=== PATIENT | male | born 1940 | race Caucasian/White ===

== ENCOUNTER 2022-02-14 17:47 | Outpatient (REF) | payer OTHER, SELFPAY ==
[2022-02-14 20:55] LABS: SARS PCR* Negative SARS-CoV-2 (Negative)
== END 2022-02-14 17:48 | disposition home or self-care (01) ==
LOC: LAB 17:47
PROVIDERS: PCP Family Medicine; Visit Provider Surgery
DX: Z20.822 Contact with and (suspected) exposure to COVID-19 (principal)
CPT/HCPCS: 87635

== ENCOUNTER 2022-02-16 09:32 | Day surgery (SDC) | payer OTHER, SELFPAY ==
[2022-02-16] VITALS (8 sets, daily range): BP systolic 119–132; BP diastolic 56–69; PULSE 66–69; RESP 16–20; TEMP 36.3; O2SAT 95–98; BMI 32.1
--- NOTE | 2022-02-16 10:08 | SUR.PREOP ---
Pt has 2 rings and watch in patient room. 2 hearing aids with patient.
[2022-02-16] MEDS: BUPIVACAINE 0.5% 30 ML INJECTION (10:48)
--- NOTE | 2022-02-16 10:57 | SUR.OPER ---
PATIENT QUESTIONS ANSWERED SATISFACTORILY PREOPERATIVELY.?? PATIENT BROUGHT TO OR #3 PER CART.?? Patient positioned supine on OR #3 bed. The perioperative team placed arms bilaterally on the armboards.? Final approval of positioning by surgeon.?
--- NOTE | 2022-02-16 12:11 | PM.GSPRC ---
Operative Note Date of procedure: 02/16/22 Type of Procedure: Right temporal artery biopsy Procedure Description: After discussing the risks and benefits of the procedure, the patient signed informed consent.? The operative site was marked and the patient was brought to the operating room and placed on the operating table in supine position.? Care was taken to pad the patient's pressure points.?? The operative site was then prepped and draped in the usual sterile fashion.? A time-out was then performed. The temporal artery was not palpable, however Doppler was used to identify its course just behind the hairline. 1% lidocaine was injected into the skin and subcutaneous tissue overlying the artery. A knife was then used to take dissection down into the subcutaneous fat. Hemostasis was achieved with cautery. The artery was then identified. This was confirmed with Doppler. It was dissected out along its course. Once a several cm length segment was identified, this was clamped proximally and distally and divided. The artery ends were then ligated with suture. The specimen was sent to pathology. Hemostasis appeared excellent. The wound was then closed in layers with 3 0 Vicryl dermal and 4 0 Monocryl running subcuticular suture. ? Sterile dressings were then applied. ? The patient was then woken and transported to the recovery area in stable condition. ? The patient tolerated the procedure well. Findings: Right temporal artery Anesthesia: local Surgeon: Pam Arora MD Estimated blood loss (mL): 1 Condition: stable Disposition: same day
== END 2022-02-16 11:29 | disposition home or self-care (01) ==
PROVIDERS: PCP Family Medicine; Visit Provider Surgery
PROC: (CPT 37609; principal; 2022-02-16 11:00)
DX: M31.6 Other giant cell arteritis (principal); R51.9 Headache, unspecified; H57.11 Ocular pain, right eye
CPT/HCPCS: 37609; 88305; J3490

== ENCOUNTER 2022-03-19 12:20 | Emergency (ER) | payer OTHER, SELFPAY ==
[2022-03-19 12:49] VITALS: BP 144/71; PULSE 63; RESP 18; TEMP 36.3; O2SAT 98; BMI 32.2
--- NOTE | 2022-03-19 13:08 | ED_ITS ---
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 Patient states that about I week ago he pulled the inner part nail on his big toe off, since then he has had some increased redness and pain while ambulating. There was also some purulent discharge that occurred yesterday and today. He has also noticed some increased swelling in lower extremities bilaterally, denies any history of heart failure, he is currently on 60 mg of prednisone daily which was changed to 50 mg daily over the last month for his temporal arteritis. He has had some hand cramps as well as lower extremity cramps, which come and go, he does have some lower extremity neuropathy and has trouble with balance at times. Patient denies any difficulty with breathing, orthopnea, denies any chest pain. No history of any MRSA. Patient has not had any fevers, chills myalgias arthralgias. She has never had lower extremity edema in the past. No history of any DVTs or PEs. No long travel. No increased weight gain. Related Data Home Medications Medication Instructions Recorded Confirmed aspirin 81 mg tablet,delayed 81 mg PO DAILY 02/15/22 02/15/22 release atenolol 50 mg tablet 50 mg PO DAILY 02/15/22 02/15/22 clotrimazole 10 mg lisa 10 mg mucous membrane 5XD 02/15/22 02/15/22 glipizide 10 mg tablet, extended 10 mg PO DAILY 02/15/22 02/15/22 release 24 hr hydrochlorothiazide 50 mg tablet 50 mg PO DAILY 02/15/22 02/15/22 insulin glargine 100 unit/mL (3 54 unit subcut HS 02/15/22 02/15/22 mL) subcutaneous pen (Lantus Solostar U-100 Insulin) liraglutide 0.6 mg/0.1 mL (18 mg/3 1.2 mg subcut DAILY 02/15/22 02/15/22 mL) subcutaneous pen injector (Victoza 2-Yunior) losartan 25 mg tablet 25 mg PO DAILY 02/15/22 02/15/22 omeprazole 20 mg capsule,delayed 20 mg PO DAILY 02/15/22 02/15/22 release prednisone 20 mg tablet 60 mg PO DAILY 02/15/22 02/15/22 sildenafil 100 mg tablet 100 mg PO DAILY PRN 02/15/22 02/15/22 simvastatin 10 mg tablet 10 mg PO HS 02/15/22 02/15/22 Previous Rx's Medication Instructions Recorded amoxicillin 875 mg-potassium 1 tab PO BID 7 days #14 tabs 03/19/22 clavulanate 125 mg tablet Allergies Allergy/AdvReac Type Severity Reaction Status Date / Time cyclobenzaprine Allergy Unknown Verified 02/15/22 09:37 lisinopril Allergy Unknown Verified 02/15/22 09:37 Review of Systems Status of ROS: Reports: 10 or more systems reviewed and unremarkable except as noted in History and below PFSH [facility] Medical History Colon polyps Diabetes mellitus Endothelial corneal dystrophy Essential hypertension History of flexible sigmoidoscopy Kidney cyst, acquired Thyroid nodule Surgical History H/O cataract removal with insertion of prosthetic lens Hx of colonoscopy Social History Smoking Status: Former smoker How many standard drinks containing alcohol do you have on a typical day: 1 or 2 AUDIT-C Alcohol total score: 0 Non-prescribed substance use: denies use service: No Exam Narrative: Exam Narrative: General: No obvious distress sitting comfortably HEENT: Nontender the temporal region. No swelling. Neck: Supple, no JVD Lungs: Clear to auscultation bilaterally Abdomen: Obese, soft Muscle skeletal: +2 pitting edema from his knees to his feet bilaterally, CMS intact. right big toe: Increased redness and swelling to the medial aspect of the nail plate, there is some purulent drainage. Neuro: Alert awake and oriented x3 Const: Vital Signs, click to edit/add: Vital Signs - 24 hr 03/19/22 12:49 03/19/22 14:49 Temperature 97.4 F L 97.4 F L Pulse Rate [Right Pulse Oximeter] 63 63 Respiratory Rate 18 18 Blood Pressure [Ri ght Upper Arm] 144/71 H 144/71 H Pulse Oximetry 98 98 Oxygen Delivery Me thod Room Air Room Air Course Course Hospital Course: 1:30 PM: AIDET performed. vitals are stable. Workup will include ultrasound lower extremities bilaterally, most likely pedal edema from his chronic prednisone, also obtain CBC and BMP and removed portion of the nail plate, on his big toe, likely treat with antibiotics. Please see procedure note. Differential diagnosis include life-threatening of DVT. Other difficulty considerations include fractures, radiculopathy, heart failure, phlebitis arthritis tendinitis sprain cellulitis as well as abscess. Reevaluation(s) Reevaluation #1: Patient was updated on his imaging and lab results, ultrasound showed no evidence of any DVT, metabolic panel showed mildly elevated potassium of 5.3, was elevated white blood cell count 12.29, neutrophil percentage of 10.5, consistent with his developing cellulitis with ingrown toenail. Blood sugar elevated at 202, BUN elevated at 41. This is unchanged from previous. Patient is to continue his usual medications, will add Augmentin 875 mg/125 mg twice daily over the next 7 days. Eliud wrap applied figure-eight pattern bilaterally. He will follow up with his primary care provider for recheck with swelling and wound care, also to recheck labs. Patient and had time to ask questions. Time: 15:06 Vital Signs Vital signs: Initial Vital Signs Temperature 97.4 F L 03/19/22 12:49 Temperature Source Temporal Artery Scan 03/19/22 12:49 Pulse Rate 63 03/19/22 12:49 Respiratory Rate 18 03/19/22 12:49 Blood Pressure 144/71 H 03/19/22 12:49 Blood Pressure Mean 95 03/19/22 12:49 Blood Pressure Position Sitting 03/19/22 12:49 Pulse Oximetry 98 03/19/22 12:49 Oxygen Delivery Method 03/19/22 12:49 Vital Signs Temperature 97.4 F L 03/19/22 12:49 Pulse Rate 63 03/19/22 12:49 Respiratory Rate 18 03/19/22 12:49 Blood Pressure 144/71 H 03/19/22 12:49 Pulse Oximetry 98 03/19/22 12:49 Oxygen Delivery Method 03/19/22 12:49 Temperature 97.4 F L 03/19/22 14:49 Pulse Rate 63 03/19/22 14:49 Respiratory Rate 18 03/19/22 14:49 Blood Pressure 144/71 H 03/19/22 14:49 Pulse Oximetry 98 03/19/22 14:49 Oxygen Delivery Method 03/19/22 14:49 Medical Decision Making Lab Data Labs: Lab Results 03/19/22 03/19/22 Range/Units 13:43 13:43 WBC 12.29 H (4.50-11.00) K/uL RBC 4.20 L (4.30-5.90) m/uL Hgb 13.2 L (13.5-17.5) gm/dL Hct 40.1 (37.0-53.0) % MCV 96 (80-100) fL MCH 31 (26-34) pg MCHC 33 (32-36) gm/dL RDW Coeff of Vicki 14.0 (11.5-15.5) % Plt Count 129 L (140-440) K/uL Neut % (Auto) 85.5 H (42.0-72.0) % Lymph % (Auto) 10.3 L (20-44) % Mccormick % (Auto) 3.8 (0.0-11.0) % Eos % (Auto) 0.2 (0.0-7.0) % Baso % (Auto) 0.0 (0.0-3.0) % Neut # (Auto) 10.50 H (1.7-7.0) K/uL Lymph # (Auto) 1.30 (0.90-2.90) K/uL Mccormick # (Auto) 0.50 (0.00-0.90) K/UL Eos # (Auto) 0.00 (0.00-0.50) K/uL Baso # (Auto) 0.00 (0.00-0.30) K/uL Abs Immat Gran (auto) 0.03 (0.00-0.30) K/uL Sodium 135 (135-149) mmol/L Potassium 5.3 H (3.6-5.1) mmol/L Chloride 96 (96-114) mmol/L Carbon Dioxide 33 H (20-32) mmol/L BUN 41 H (7-30) mg/dL Creatinine 1.5 (0.5-1.5) mg/dL Estimated Creat Clear 37.97 Estimated GFR 46 ml/min Glucose 202 H (60-115) mg/dL Calcium 9.2 (8.4-10.6) mg/dL Discharge Plan Discharge Clinical Impression: Bilateral edema of lower extremity, Ingrowing nail, right great toe Patient Disposition: Home, Self-Care Condition: Improved Instructions: Ingrown Nail (ED), Leg Edema (ED), Edema (ED) Additional Instructions: To take Augmentin 875-125 mg twice daily for the next 7 days. Elevated the legs during the day, eliud wraps during the day for swelling. To follow up with primary care provider in the next 5-7 days. Activity Level: No Restrictions Prescriptions: New amoxicillin-pot clavulanate 875-125 mg tablet 1 tab PO BID 7 Days Qty: 14 0RF No Action atenolol 50 mg tablet 50 mg PO DAILY aspirin 81 mg tablet,delayed release (DR/EC) 81 mg PO DAILY clotrimazole 10 mg lisa 10 mg mucous membrane 5XD hydrochlorothiazide 50 mg tablet 50 mg PO DAILY glipizide 10 mg tablet extended release 24hr 10 mg PO DAILY simvastatin 10 mg tablet 10 mg PO HS sildenafil 100 mg tablet 100 mg PO DAILY PRN losartan 25 mg tablet 25 mg PO DAILY omeprazole 20 mg capsule,delayed release(DR/EC) 20 mg PO DAILY insulin glargine [Lantus Solostar U-100 Insulin] 100 unit/mL (3 mL) insulin pen 54 unit SUBCUT HS Victoza 2-Yunior 0.6 mg/0.1 mL (18 mg/3 mL) pen injector 1.2 mg SUBCUT DAILY prednisone 20 mg tablet 60 mg PO DAILY Follow Up/Referrals: Ryan Barreto MD [Primary Care Provider] - Stand Alone [facility] Inst[facility] Procedures Nail Procedure Location (toes): right Procedure performed: nail avulsion Sterile prep: other Procedure successful: Yes Patient tolerated procedure: well Nerve Block Nerve Block 1: Pre procedure diagnosis: Ingrown toe nail Post procedure diagnosis: Ingrown toe nail Name of person performing procedure: Arnold Baumann Local Anesthetic: bupivacaine 0.25% Amount of anesthesia used (mL): 5 Side: right Site: digital Procedure Successful: Yes Patient Tolerated Procedure: well Complications: none Conclusion: patient tolerated procedure
--- NOTE | 2022-03-19 13:20 | CRLHL7_ITS ---
For Patients: As a result of the Century Cures Act, medical imaging exams and procedure reports are released immediately into your electronic medical record. You may view this report before your referring provider. If you have questions, please contact your health care provider. INDICATION: New swelling. TECHNIQUE: Ultrasound venous duplex bilateral lower extremity. Compression venous exam was performed using sanchez-scale, color Doppler, and spectral Doppler analysis. COMPARISON: None. FINDINGS: Deep veins: Sonographic imaging demonstrates the bilateral common femoral, deep femoral, superficial femoral, popliteal, and posterior tibial veins to be fully compressible with normal color Doppler blood flow. Superficial veins: Greater saphenous vein is fully compressible. No popliteal cyst. IMPRESSION: Normal bilateral lower extremity venous ultrasound, no sign of deep venous thrombosis. Dictated by Christopher Rodriguez MD @ 03/19/2022 2:55:32 PM (Electronically Signed)
--- OUTSIDE RECORDS SUMMARY | 2022-03-19 13:30 | XMS_ITS | Encounter Summary ---
:1940 Author Organization [facility] Address [address] [place] [address] Care Team Providers Name Role Phone Elsewhere, Pcp Primary Care Provider Unavailable Reason for Referral Outpatient (Routine) - Closed Specialty Diagnoses / Procedures Referred By Contact Refer red To Contact Ophthalmology Artur Barnhart M. D. 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 D. [address] [phone] Referral ID Status Reason Start Date Expiration Date Visits Requ ested Visits Authorized [id number] Closed 05/24/2021 05/24/2022 1 1 Encounter Details Date Type Department Care Team Description 06/13/2021 Office Visit Department of Artur Barnhart Ophthalmology allen Dinh M.D. Cornea (Primary Dx) [place], [place] [address] [facility] [address] [place] [phone] Social History Tobacco Use Types Packs/Day Years Used Date Smoking Tobacco: Unknown Smokeless Tobacco: Never Sex Assigned at Date Recorded Not on file documented as of this encounter Progress Notes Artur Barnhart M.D. - 06/13/2021 10:00 AM CST #1 s/p DMEK, right eye. Status post rebubble Doing well Plan: Prednisolone acetate 1%, 1 drop 3x/day. Wear shield at night and glasses during the day. Recheck 4-6 weeks #2 Fuchs endothelial dystrophy, both eyes s/p DMEK, left eye; doing well Prednisolone acetate 1%, taper to 1 drop 1x/day. #3 Pseudophakia, both eyes IOLs stable in the bag. ?? #4 Diabetes, no retinopathy Observe ?? #5 Mild macular pigment changes, left>right Doubt this is enough to explain blurred vision. 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 Observe. 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
--- OUTSIDE RECORDS SUMMARY | 2022-03-19 13:30 | XMS_ITS | Encounter Summary ---
:1940 Author Organization [facility] Address [address] [place] [address] Care Team Providers Name Role Phone Elsewhere, Pcp Primary Care Provider Unavailable Reason for Referral Outpatient (Routine) - Closed Specialty Diagnoses / Procedures Referred By Contact Refer red To Contact Ophthalmology Artur Barnhart M. D. [address] [phone] Referral ID Status Reason Start Date Expiration Date Visits Requ ested Visits Authorized [id number] Closed 07/26/2021 07/26/2022 1 1 NSTITCH SEAT JOINER Reason for Visit Reason Comments Post-op Follow-up Outpatient (Routine) - Closed Specialty Diagnoses / Procedures Referred By Contact Refer red To Contact Ophthalmology Artur Barnhart M. D. [address] [phone] Referral ID Status Reason Start Date Expiration Date Visits Requ ested Visits Authorized [id number] Closed 06/13/2021 06/13/2022 1 1 Encounter Details Date Type Department Care Team Description 07/26/2021 Office Visit Department of Artur Barnhart Afterrhonda odom Ophthalmology allen Dinh M.D. Cornea (Primary Dx) [address] [phone] Social History Tobacco Use Types Packs/Day Years Used Date Smoking Tobacco: Unknown Smokeless Tobacco: Never Sex Assigned at Date Recorded Not on file documented as of this encounter Progress Notes Artur Barnhart M.D. - 07/26/2021 9:15 AM CST #1 s/p DMEK, right eye. Doing well Plan: Prednisolone acetate 1%, 1 drop 2x/day for 1 month, then once a day for 1 month, then change to fluorometholone daily. Spectacle prescription given Recheck in 3-4 months. #2 Fuchs endothelial dystrophy, both eyes s/p DMEK, left eye; doing well Discontinue prednisolone acetate Start fluorometholone 0.1% 1x/day #3 Pseudophakia, both eyes IOLs stable in the bag. ?? #4 Diabetes, no retinopathy Observe ?? #5 Mild macular pigment changes, left>right Doubt this is enough to explain blurred vision. 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 Observe. NSTITCH SEAT JOINER documented in this encounter Plan of Treatment Scheduled Referrals Name Type Priority Associated Order Schedule Diagnoses Ophthalmology office Outpatient Referral Routine Expected: visit (clinic) 11/07/2021 (Approximate), Expires: 10/24/2022 documented as of this encounter Visit Diagnoses Diagnosis Aftercare Transplant Cornea - Primary documented in this encounter Care Teams Furniture Reproducer Relationship Specialty Start Date End Date Elsewhere, Pcp PCP - General Family Medicine 03/01/21 documented as of this encounter
--- OUTSIDE RECORDS SUMMARY | 2022-03-19 13:30 | XMS_ITS | Encounter Summary ---
:1940 Author Organization [facility] Address [address] [place] [address] Care Team Providers Name Role Phone Elsewhere, Pcp Primary Care Provider Unavailable Encounter Details Date Type Department Care Team Description 06/01/2021 Orders Only [facility] PCP [facility] Sa antonio Real M.D. [address] [place], [place] [phone] (Wo rk) Social History Tobacco Use Types Packs/Day Years Used Date Smoking Tobacco: Unknown Smokeless Tobacco: Never Sex Assigned at Date Recorded Not on file documented as of this encounter Plan of Treatment Not on filedocumented as of this encounter Visit Diagnoses Not on filedocumented in this encounter Care Teams Math Teacher Relationship Specialty Start Date End Date Elsewhere, Pcp PCP - General Family Medicine 03/01/21 documented as of this encounter
--- OUTSIDE RECORDS SUMMARY | 2022-03-19 13:30 | XMS_ITS | Encounter Summary ---
:1940 Author Organization [facility] Address [address] [place] [address] Care Team Providers Name Role Phone Elsewhere, Pcp Primary Care Provider Unavailable Reason for Referral Outpatient (Routine) - Closed Specialty Diagnoses / Procedures Referred By Contact Refer red To Contact Ophthalmology Artur Barnhart M. D. [address] [address] Referral ID Status Reason Start Date Expiration Date Visits Requ ested Visits Authorized [id number] Closed 05/22/2021 05/22/2022 1 1 Reason for Visit Reason Comments Post-op Follow-up Outpatient (Routine) - Closed Specialty Diagnoses / Procedures Referred By Contact Refer red To Contact Ophthalmology Artur Barnhart M. D. [address] [phone] Referral ID Status Reason Start Date Expiration Date Visits Requ ested Visits Authorized [id number] Closed 05/15/2021 05/15/2022 1 1 Encounter Details Date Type Department Care Team Description 05/22/2021 Office Visit Department of Artur Barnhart Aftercare Tra nsplant Cornea (Primary Dx); Ophthalmology allen Dinh M.D. Edema Corneal Secondary Right [address] [place] [phone] Social History Tobacco Use Types Packs/Day Years Used Date Smoking Tobacco: Unknown Smokeless Tobacco: Never Sex Assigned at Date Recorded Not on file documented as of this encounter Progress Notes Artur Barnhart M.D. - 05/22/2021 11:00 AM CDT #1 s/p DMEK, right eye. No worse than last week but still has significant inferior separation. Discussed the findings and recommend re-bubble. Patient understands. Topical antibiotic 1 drop 4x/day for 1 week. Prednisolone acetate 1%, 1 drop 4x/day. Wear shield at night and glasses during the day. Plan: Re-bubble, right eye Discussed risks, goals, alternatives, advance directives, and the necessity of other members of the healthcare team participating in the procedure with the patient (or legal business office representative and others present during the discussion). The patient understands. All questions answered and consent given. #2 Fuchs endothelial dystrophy, both eyes s/p DMEK, left eye; doing well Prednisolone acetate 1%, taper to 1 drop 2x/day. #3 Pseudophakia, both eyes IOLs stable in the bag. ?? #4 Diabetes, no retinopathy Observe ?? #5 Mild macular pigment changes, left>right Doubt this is enough to explain blurred vision. #6 Choroidal nevus left eye With possible org pigment, no subretinal fluid or elevation on exam. Observe. documented in this encounter Plan of Treatment Scheduled Referrals Name Type Priority Associated Order Schedule Diagnoses Ophthalmology Post Op Outpatient Referral Routine Expected: (clinic) 05/22/2021, Expires: 05/22/2024 documented as of this encounter Results SARS Coronavirus 2, Molecular Detection, PCR, Varies Asymptomatic (05/22/2021 11:18 AM CDT) [facility] Method Time Signature COVID-19, Swab, 05/22/2021 DTL PCR, Source Nasopharynx 6:15 PM CDT COVID-19, Undetected Undetected 05/22/2021 DTL PCR, Result 6:15 PM CDT Comment: SARS-CoV-2 RNA absent. This result does not rule out COVID-19 in the patient, as the sensitivity of the test depends o n the timing of the specimen collection and quality of the specimen. Result should be correlated with patient's history and clinical presentat ion. ----ADDITIONAL INFORMATION---- This RT-PCR test using the SurveySnap SARS-Co V-2 Assay ( [employer].) performed on the SurveySnap Two Module System has received Emergency Use Authorization (EUA) by the U.S. Food and Drug Administration, and is modified from the infant and toddler teacher's instructions with a bridging study. Performance characteristics were verifie d by [facility] in a manner consistent with CLIA requirements. Visit the CDC website: https://www.cdc.g ov/coronavirus/ for the most recent guidelines on [place] virus testing. Fact Sheet for Healthcare Providers: https://www.fda.gov/media/894546/downloa d Fact Sheet for Patients: https://www.fda.gov/media/756229/downloa d Specimen Anatomical Collection Method Collection Time Receive d Time (Source) Location / / Volume Laterality Varies 05/22/2021 11:18 05/22/2021 (Nasopharynx) AM CDT 12:45 PM CDT Artur Barnhart M.D. LAB MICROBIOLOGY - GENERAL O SERGIOERABOB Performing Organization Address City/State/ZIP Code Phon e Number [facility] - [address] [place], [place] [address] [facility] [place] [place] [address] [facility] [address] [facility] documented in this encounter Visit Diagnoses Diagnosis Aftercare Transplant Cornea - Primary Edema Corneal Secondary Right documented in this encounter Additional Health Concerns Infection Onset Date Last Indicated Resolved Time COVID19 Pending 05/22/2021 05/22/2021 05/22/2021 6:16 PM CDT documented as of this encounter Care Teams Accounts Payable Processor Relationship Specialty Start Date End Date Elsewhere, Pcp PCP - General Family Medicine 03/01/21 documented as of this encounter
--- OUTSIDE RECORDS SUMMARY | 2022-03-19 13:30 | XMS_ITS | Encounter Summary ---
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 IN [facility] [place] [address] [address] [facility] [address] [place] [phone] Social History Tobacco Use Types Packs/Day Years Used Date Smoking Tobacco: Unknown Smokeless Tobacco: Never Sex Assigned at Date Recorded Not on file documented as of this encounter Last Filed Vital Signs Vital Sign Reading Time Taken Comments Blood Pressure 140/73 05/23/2021 1:55 PM CDT Pulse 70 05/23/2021 1:55 PM CDT Temperature 37 ??C (98.6 ??F) 05/23/2021 12:14 PM CDT Respiratory Rate 19 05/23/2021 1:55 PM CDT Oxygen Saturation 97% 05/23/2021 1:55 PM CDT Inhaled Oxygen Concentration - - Weight - - Height - - Body Mass Index - - documented in this encounter Discharge Instructions Discharge InstructionsSabi Coppola R.N. - 05/23/2021 2:05 PM CDT Images from the original note were not included. Care after Corneal Transplant (DMEK): Instructions for the first day and night of surgery ONLY After IV sedation After you have been sedated, it is common to have lapses of memory, slowed reaction time and impaired judgment. For the rest of the day after being sedated: ?? Rest. ?? Do not drive or operate motorized vehicles or equipment. ?? Do not return to work or school. ?? Do not take on responsibility for children or anyone who depends on your care. ?? Do not use exercise equipment or take part in rough play or sports. ?? Do not drink alcoholic beverages. ?? You can resume your usual diet as you feel able. Activities & Restrictions ?? Keep eye shield on until your next appointment. ?? You may bathe or shower; avoid getting water in the eye. ?? You may bend over and lift things that do not require straining. ?? Do not rub your operated eye. ?? Do not use eyedrops in operated eye until your next appointment. Gas Bubble ?? You have a gas bubble in your eye. ?? Lie flat on your back with your nose pointing to the ceiling for 30 minutes to 2 hours, and then you may sit up or stand or move around for an equal amount of time before lying flat again. Alternatebetween lying flat and being up for the rest of today. ?? At night time, you may sleep on your back or on either your side, or as you usually do, but avoidsleeping on your stomach. ?? You received a green wrist band that indicates you have gas in your eye. Please do not remove this until your doctor instructs you it is safe to remove it. Normal Symptoms ?? Itching and mild irritation. ?? Foreign body sensation. ?? Tearing sensation. Warning Signs (call the numbers below if you experience these) ?? Headache sensation around the operated eye, especially if associated with nausea or vomiting (uncommon). ?? Severe eye pain/ache that is not irritation or like a foreign body sensation (uncommon). Contact Information If you have immediate or urgent concerns, please contact Dr. Artur Barnhart, Sat- Sat 8-5 at [phone] [facility], (after business hours, and ask for the loan operations manager eye doctor) Please bring all of your eyedrops with you to your next appointment. documented in this encounter Medications at Time of Discharge Medication Sig Dispensed Refills Start Date End Date aspirin [address] tablet Take 1 tablet by 0 2014 mouth daily. atenoloL (TENORMIN) 50 mg Take 1 tablet by 0 01/19 tablet mouth daily. glipiZIDE (GLUCOTROL XL) 10 Take 1 tablet by 0 mg 24 hr tablet mouth daily. hydroCHLOROthiazide Take 1 tablet by 0 02/01/2021 (HYDRODIURIL) 50 mg tablet mouth daily. Lantus Solostar U-100 Inject 1 Units 0 11/23/2020 Insulin 100 unit/mL (3 mL) under the skin at injection bedtime. liraglutide (Victoza 2-Yunior) Inject 1.2 mg 0 05/04 0.6 mg/0.1 mL (18 mg/3 mL) under the skin at injection bedtime. losartan (COZAAR) 25 mg Take 1 tablet by 0 2020 tablet mouth daily. omeprazole (PriLOSEC) 20 mg Take 1 capsule by 0 0 02/07/2021 DR capsule mouth daily. sildenafiL (VIAGRA) 100 mg Take 1 tablet by 0 03/2021 tablet mouth daily as needed. simvastatin (ZOCOR) 10 mg Take 1 tablet by 0 01/19 tablet mouth daily. vardenafiL (Levitra) 20 mg Take 1 tablet by 0 10/2014 tablet mouth as directed. moxifloxacin (VIGAMOX) 0.5 % 1 drop to 3 mL 1 16/2 021 06/13/2021 ophthalmic solution operated eye 4 times per day for 1 week, starting the day before surgery prednisoLONE acetate (PRED After surgery, 1 10 mL 3 08/202006/13/2021 FORTE) 1 % ophthalmic drop to operated suspension eye 4x/day and then as directed by your physician documented as of this encounter OR Notes Op Note - Artur Barnhart M.D. - 05/23/2021 1:35 PM CDT Pre-op Diagnosis Partial DMEK graft detachment, right eye Post-op Diagnosis Partial DMEK graft detachment, right eye Findings As expected. Complications None Description of Procedure A final pause occurred just before the start of the procedure, during which the entire procedure team actively confirmed the correct patient, procedure, side, special equipment, and special requirements. The eye was prepared and draped in the usual sterile ophthalmic manner, and a lid speculum was placed. A paracenteses was placed and air was injected into the anterior chamber under the DMEK graft to completely fill the chamber. No direct graft manipulation or repositioning was required. After a complete gas fill for approximately 10 minutes, balanced salt solution was injected into the anterior chamber to reduce the gas fill to approximately 80%. Subconjunctival injections of cefazolin, 25 mg, and dexamethasone, 2 mg, were administered in the inferior fornix. The lid speculum was removed, and Polymyxin B/neomycin/dexamethasone ointment was applied to the eye followed a patch and Watts shield. The patient tolerated the procedure well, and there were no immediate complications. The patient was instructed to lay supine in the recovery area for 60 minutes after surgery. Artur Barnhart M.D. documented in this encounter Plan of Treatment Not on filedocumented as of this encounter Procedures Procedure Name Priority Date/Time Associated Diagnosis Comme nts GLUCOSE POCT, B Routine 05/23/2021 1:23 PM Result s for this CDT procedure are i n the results section. INJECTION GAS 05/23/2021 1:22 PM Edema Corneal ANTERIOR CHAMBER CDT Secondary Right Aftercare Transplant Cornea documented in this encounter Results Glucose, POCT (05/23/2021 1:23 PM CDT) P athologist Signature Glucose, POCT, 112 70 - 140 05/23/2021 PCMO B mg/dL 1:25 PM CDT Specimen Anatomical Collection Method Collection Time Receive d Time (Source) Location / / Volume Laterality Blood 05/23/2021 1:23 PM 1:25 CDT PM CDT Unknown Provider LAB POCT ORDERABLES-MANUAL Performing Organization Address City/State/ZIP Code Phon e Number POC [facility] [address] [place] [address] OUTPATIENT LABS PCMO [facility] [place] [address] [place] [facility] [address] documented in this encounter Visit Diagnoses Diagnosis 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 documented in this encounter Admitting Diagnoses Diagnosis 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 Amount Dispensed Exceeds Dose. 5 mL vial. dexAMETHasone injection 2 mg (DECADRON) Given 05/23/2021 1:52 PM CDT 2 mg Right Eye 2 mg, subconjunctival, Once in surgery, OR use only, Starting on Sat05/23/21 at 1222, For 1 dose, Intra-Op fentaNYL injection 25 mcg (SUBLIMAZE) Given 05/23/2021 1:34 PM CDT 25 mcg 25 mcg, intravenous, Every 2 min PRN, moderate pain or score 4-6 of 10, severe pain or score 7-10 of 10, sedation, Starting on Sat05/23/21 at 1204, Administer over 1 minute immediately prior to the procedure. May repeat every 2 minutes to a maximum of 200 mcg, until pain score of 3 or less, or until the patient meets the pain comfort goal. Do not give if respiratory rate is less than 8 breaths/minute lactated ringers New Bag 05/23/2021 12:15 PM CDT 20 mL/hr 20 mL/hr 20 mL/hr, intravenous, Continuous, Starting on Sat05/23/21 at 1215 ezeyxdido-dugnxdpifvm-atmdvfmiemwng human Given 05/23/2021 1:35 4.6 mL Right Eye recombinant (Ophthalmic Block Solution #2) PM CDT 9.5 mg-2.4 mg-7.5 Units/mL 12 mL 12 mL, ophthalmic, Once in surgery, OR use only, Starting on Sat05/23/21 at 1222, For 1 dose, Intra-Op midazolam (PF) injection 0.5 mg (VERSED) Given 05/23/2021 1:34 PM CDT 0.5 mg 0.5 mg, intravenous, Every 2 min PRN, sedation, Starting on Sat05/23/21 at 1204, If RASS greater than -3, give additional dose(s) of 0.5 mg IV every 2 minutes for a maximum of 5 mg. Do not give if respiratory rate is less than 8 breaths/minute. neomycin-polymyxin B-dexameth Given 05/23/2021 1:51 PM CDT 1 humberto lication Right Eye ophthalmic ointment (MAXITROL) As needed, Starting on Sat05/23/21 at 1351, Intra-Op povidone-iodine 10 % external solution Given 05/23/2021 1:38 PM CDT 5 mL Right Eye (BETADINE) As needed, Starting on Sat05/23/21 at 1338, Intra-Op povidone-iodine 5 % ophthalmic Given 05/23/2021 1:[address] Right Eye solution (BETADINE) As needed, Starting on Sat05/23/21 at 1334, Intra-Op proparacaine 0.5 % ophthalmic Given 05/23/2021 1:34 PM CDT 2 tutu ps Right Eye solution (ALCAINE) As needed, Starting on Sat05/23/21 at 1334, Intra-Op sodium chloride 0.9 % injection 10 mL 10 mL, intravenous, As needed, line care , Starting on Sat05/23/21 at 1155, Pre-Op, Peripheral Intravenous Catheter and Rapid Infusion Cat heter, prior to blood sampling, post blood transfusion or post blood samplin g sodium chloride 0.9 % injection 3 mL 3 mL, intravenous, As needed, line care, Starting on Sat05/23/21 at 1155, Pre-Op, Prior to and following infusion and betw een multiple consecutive infusions: sodium chloride 0.9 % injection sodium chloride 0.9 % injection 3 mL 3 mL, intravenous, Every 12 hours scheduled, First dos e on Sat05/23/21 at 2100, Pre-Op, Peripheral Intravenous Catheter and Rapid Infu andry Catheter, when no infusion to maintain patency documented in this encounter Active and Recently Administered Medications Times are shown in CDT. Scheduled Medication Order 05/21/2021 05/22/2021 05/23/2021 sodium chloride 0.9 % injection 3 mL 3 mL, intravenous, Every 12 hours schedu led, First dose on Sat05/23/21 at 2100, Pre-Op, Peripheral Intravenous Catheter and Rapid Infusion Catheter, when no infusion to maintain patency Continuous Medication Order 05/21/2021 05/22/2021 05/23/2021 lactated ringers 1215 (New Bag - Provider: Pau Watts R.N.)1449 (Stopped - Provider: Pau Watts R.N.) 20 mL/hr, intravenous, Continuous, Starting on Sat05/23/21 at 12 15 PRN Medication Order 05/21/2021 05/22/2021 05/23/2021 balanced salt solution ophthalmic irrigation (BSS) (CANCELED) 1340 (Given - Provider: Octavio Adame M.D.) As needed, Starting on Sat05/23/21 at 1340, Intra-Op ceFAZolin subconjunctival 25 mg (ANCEF) (COMPLETED) 1352 (Given - Provider: Artur Barnhart M.D.) 25 mg, subconjunctival, Once in surgery, OR use only, Starting on Sat05/23/21 at 1222, For 1 dose, Intra-Op, SUBCONJUNCTIVAL Use Only. Amount Dispensed Exceeds Dose. 5 mL vial. dexAMETHasone injection 2 mg (DECADRON) (COMPLETED) 1352 (Given - Provider: Artur Barnhart M.D.) 2 mg, subconjunctival, Once in surgery, OR use only, Starting on Sat05/23/21 at 1222, For 1 dose, Intra-Op fentaNYL injection 25 mcg (SUBLIMAZE) 1334 (Given - Provider: Sabi Coppola R.N.) 25 mcg, intravenous, Every 2 min PRN, mo derate pain or score 4-6 of 10, severe pain or score 7-10 of 10, sedation, Starting on Sat05/23/21 at 1204, Administer over 1 minute immediately prior to the proc edure. May repeat every 2 minutes to a m aximum of 200 mcg, until pain score of 3 or less, or until the patient meets the pain comfort goal. Do not give if respiratory rate is less than 8 breaths/minute flumazeniL injection 0.2 mg (ROMAZICON) 0.2 mg, intravenous, Once as needed, rev ersal, Starting on Sat05/23/21 at 1204, For 1 dose, Administer once if patient has a RASS score of -4, -5 and has a respiratory rate less than 8 breaths/minute. fzyrtrfqz-rbqeaorqwwp-sxouufjxdzzlz debra n recombinant (Ophthalmic Block Solution #2) 9.5 mg-2.4 mg-7.5 Units/mL 12 mL (COMPLETED) 1335 (Given - Provider: Artur Barnhart M.D.) 12 mL, ophthalmic, Once in surgery, OR u se only, Starting on Sat05/23/21 at 1222, For 1 dose, Intra-Op midazolam (PF) injection 0.5 mg (VERSED) 0.5 mg, intravenous, Once as needed, sed ation, Starting on Sat05/23/21 at 1204, For 1 dose midazolam (PF) injection 0.5 mg (VERSED) 1334 (Given - Provider: Sabi Coppola R.N.) 0.5 mg, intravenous, Every 2 min PRN, se dation, Starting on Sat05/23/21 at 1204, If RASS greater than -3, give additional dose(s) of 0.5 mg IV every 2 minutes for a maximum of 5 mg. Do not give if respiratory rate is less than 8 breaths/minute. naloxone injection 0.2 mg (NARCAN) 0.2 mg, intravenous, Once as needed, res piratory depression, Starting on Sat05/23/21 at 1204, For 1 dose, Administer once if patient has a RASS score of -4, -5 and has a respiratory rate less than 8 breaths/minute. neomycin-polymyxin B-dexameth ophthalmic ointment (MAXITROL) (CA NCELED) 1351 (Given - Provider: Octavio Adame M.D.) As needed, Starting on Sat05/23/21 at 1351, Intra-Op ondansetron (PF) injection 4 mg (ZOFRAN) 4 mg, intravenous, Once as needed, nause a, vomiting, Starting on Sat05/23/21 at 1204, For 1 dose povidone-iodine 10 % external solution (BETADINE) (CANCELED) 1338 (Given - Provider: Iveth Bass R.N.) As needed, Starting on Sat05/23/21 at 1338, Intra-Op povidone-iodine 5 % ophthalmic solution (BETADINE) (CANCELED) 1334 (Given - Provider: Artur Barnhart M.D.) As needed, Starting on Sat05/23/21 at 1334, Intra-Op proparacaine 0.5 % ophthalmic solution (ALCAINE) (CANCELED) 1334 (Given - Provider: Artur Barnhart M.D.) As needed, Starting on Sat05/23/21 at 1334, Intra-Op sodium chloride 0.9 % injection 10 mL 10 mL, intravenous, As needed, line care , Starting on Sat05/23/21 at 1155, Pre- Op, Peripheral Intravenous Catheter and Rapid Infusion Catheter, prior to blood sampling, post blood transfusion or post blood sampling sodium chloride 0.9 % injection 3 mL 3 mL, intravenous, As needed, line care, Starting on Sat05/23/21 at 1155, Pre- Op, Prior to and following infusion and between multiple consecutive infusions: sodium chloride 0.9 % injection documented in this encounter Care Teams Solderer Dipper Relationship Specialty Start Date End Date Elsewhere, Pcp PCP - General Family Medicine 03/01/21 documented as of this encounter
--- OUTSIDE RECORDS SUMMARY | 2022-03-19 13:30 | XMS_ITS | Clinical Summary ---
:1940 Author Organization [facility] Address [address] [place] [address] Care Team Providers Name Role Phone Elsewhere, Pcp Primary Care Provider Unavailable Source Comments Patient records contain information from all sites at [facility]. For routine questions regarding patient records, call [phone] during business hours, M-F 8:00 AM - 5:00 PM Central Time. Record requests for emergency care only can be directed to [phone] at any time.[facility] Allergies No known active allergies Medications Medication Sig Dispensed Refills Start Date End Date Status aspirin [address] tablet Take 1 tablet by 0 5 Active mouth daily. atenoloL (TENORMIN) 50 Take 1 tablet by 0 02/01/2021 Active mg tablet mouth daily. glipiZIDE (GLUCOTROL XL) Take 1 tablet by 0 02/02/20 21 Active 10 mg 24 hr tablet mouth daily. hydroCHLOROthiazide Take 1 tablet by 0 02/01/2021 Active (HYDRODIURIL) 50 mg mouth daily. tablet Lantus Solostar U-100 Inject 1 Units 0 11/23/2020 Active Insulin 100 unit/mL (3 under the skin at mL) injection bedtime. liraglutide (Victoza Inject 1.2 mg 0 05/04/2020 Active 2-Yunior) 0.6 mg/0.1 mL (18 under the skin at mg/3 mL) injection bedtime. losartan (COZAAR) 25 mg Take 1 tablet by 0 1 Active tablet mouth daily. omeprazole (PriLOSEC) 20 Take 1 capsule by 0 02/07/ [address] capsule mouth daily. sildenafiL (VIAGRA) 100 Take 1 tablet by 0 1 Active mg tablet mouth daily as needed. simvastatin (ZOCOR) 10 Take 1 tablet by 0 02/01/2021 Active mg tablet mouth daily. vardenafiL (Levitra) 20 Take 1 tablet by 0 5 Active mg tablet mouth as directed. blood sugar diagnostic Dispense item 0 08/08/2021 Active (Prodigy No Coding) covered by pt strips ins. 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 Reason: High A1C, insulin start. cephalexin (KEFLEX) 500 0 08/21/2021 Active mg capsule metroNIDAZOLE APPLY TO AFFECTED 0 09/29/2021 Active (METROCREAM) 0.75 % AREA ON FACE 1-2X cream DAILY triamcinolone (KENALOG) APPLY TO ITCHY 0 09/29/2021 Active 0.1 % cream AREAS ON ENTIRE BODY TWICE A DAY FOR 2 WEEKS AT A TIME , TAKE 2 WEEK BREAK THEN REPEAT NEEDED FOR FLARES fluorometholone (FML) Administer 1 drop 10 mL 3 11/07/2021 Active 0.1 % ophthalmic into both eyes suspension every other day. 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 Overview: Added automatically from request for maddie townsend [id number] Social History Tobacco Use Types Packs/Day Years Used Date Smoking Tobacco: Unknown Smokeless Tobacco: Never Sex Assigned at Date Recorded Not on file Last Filed Vital Signs Vital Sign Reading Time Taken Comments Blood Pressure 127/63 05/23/2021 2:30 PM CDT Pulse 69 05/23/2021 2:45 PM CDT Temperature 37 ??C (98.6 ??F) 05/23/2021 12:14 PM CDT Respiratory Rate 19 05/23/2021 2:45 PM CDT Oxygen Saturation 95% 05/23/2021 2:45 PM CDT Inhaled Oxygen Concentration - - Weight 101 kg (223 lb 12.3 oz) 05/10/2021 10:57 AM CDT Height 177.1 cm (5' 9.72) 05/10/2021 10:57 AM CDT Body Mass Index 32.36 05/10/2021 10:57 AM CDT Plan of Treatment Health Maintenance Due Date Last Done Comments Depression Screening 07/22/2021 (Annual PHQ-2) Creatinine Level 12/01/2021 12/01/2020, 08/04/2020, 02/02/2020, Additional history exists Potassium Level 12/01/2021 12/01/2020, 08/04/2020, 02/02/2020, Additional history exists Sodium Level 12/01/2021 12/01/2020, 08/04/2020, 02/02/2020, Additional history exists DTaP,Tdap,and Td Vaccines 04/24/2022 04/24/2012 (2 - Td or Tdap) Influenza Vaccine (#1) 2022 04/26/2021, 03/25/2020, 03/25/2020, Additional history exists Pneumococcal vaccine (65+ Completed 12/21/2015, 08/08/2006 years) Zoster Vaccines Completed 06/03/2018, 04/02/2018, 04/24/2012 Fall Risk Screen (Annual) Completed 07/26/2021 COVID-19 Vaccine Completed 11/06/2021, 05/31/2021, 10/07/2020, Additional history exists HPV Vaccines Aged Out No longer eligib le based on patient 's age to complete this topic Medical Devices Implanted Type Area Tool Dresser Device Shelf Model / Identifier Expiration Serial / Date Lot Donor Cornea Bone or Left: Duglas Dobson 03/12/2021-1516 / Implanted: Qty: 1 on 03/01/2021 by Artur Barnhart M .D. at [facility] Tissue Eye Eye Bank / Donor Cornea Bone or Right: Duglas Dobson 05/18/2021 [id number] OD-C / Implanted: Qty: 1 on 05/10/2021 by Artur Barnhart M .D. at [facility] Tissue Eye Eye Bank / Ocular (Eye) Ocular Bilatera Implant (Eye) l: Eye Implant Insurance Payer Benefit Plan / Subscriber ID Effective Dates Phone Addre ss Type Group HUMANA HUMANA CHOICE [id number] 2018-Present [phone] [address] [address] [place] [address] Care Teams Back Tender Paper Machine Relationship Specialty Start Date End Date Elsewhere, Pcp PCP - General Family Medicine 03/01/21
--- OUTSIDE RECORDS SUMMARY | 2022-03-19 13:30 | XMS_ITS | Encounter Summary ---
:1940 Author Organization [facility] Address [address] [place] [address] Care Team Providers Name Role Phone Elsewhere, Pcp Primary Care Provider Unavailable Reason for Referral Outpatient (Routine) - Closed Specialty Diagnoses / Procedures Referred By Contact Refer red To Contact Ophthalmology Artur Barnhart M. D. [address] [phone] Referral ID Status Reason Start Date Expiration Date Visits Requ ested Visits Authorized [id number] Closed 05/24/2021 05/24/2022 1 1 Reason for Visit Reason Comments Post-op Follow-up Outpatient (Routine) - Closed Specialty Diagnoses / Procedures Referred By Contact Refer red To Contact Ophthalmology Artur Barnhart M. D. [address] [phone] Referral ID Status Reason Start Date Expiration Date Visits Requ ested Visits Authorized [id number] Closed 05/22/2021 05/22/2022 1 1 Encounter Details Date Type Department Care Team Description 05/24/2021 Office [facility] Op[facility]mology allen Dinh M.D. Cornea (Primary Dx) [address] [place] [phone] Social History Tobacco Use Types Packs/Day Years Used Date Smoking Tobacco: Unknown Smokeless Tobacco: Never Sex Assigned at Date Recorded Not on file documented as of this encounter Progress Notes Artur Barnhart M.D. - 05/24/2021 8:45 AM CDT #1 s/p DMEK, right eye. Status post rebubble Topical antibiotic 1 drop 4x/day for 1 week. Prednisolone acetate 1%, 1 drop 4x/day. Wear shield at night and glasses during the day. Recheck 3 weeks #2 Fuchs endothelial dystrophy, both eyes [...] Post Op Outpatient Referral Routine Expected: (clinic) 06/14/2021 (Approximate), Expires: 05/24/2024 documented as of this encounter Visit Diagnoses Diagnosis Aftercare Transplant Cornea - Primary documented in this encounter Care Teams Dependency Program Director Relationship Specialty Start Date End Date Elsewhere, Pcp PCP - General Family Medicine 03/01/21 documented as of this encounter
--- OUTSIDE RECORDS SUMMARY | 2022-03-19 13:30 | XMS_ITS | Encounter Summary ---
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 documented in this encounter Admitting Diagnoses Diagnosis 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 documented in this encounter Administered Medications Inactive Administered Medications - up to 3 most recent administrations Medication Order MAR Action Action Date Dose Rate Site fentaNYL injection 25 mcg Given 05/23/2021 1:34 PM CDT 25 mcg (SUBLIMAZE) 25 mcg, intravenous, Every 2 min PRN, [...] intravenous, Continuous, Starting on Sat05/23/21 at 1215 midazolam (PF) injection 0.5 mg (VERSED) Given 05/23/2021 1:34 PM CDT 0.5 mg 0.5 mg, intravenous, Every 2 min PRN, sedation, Starting on Sat05/23/21 at 1204, If RASS greater than -3, give additional dose(s) of 0.5 mg IV every 2 minutes for a maximum of 5 mg. Do not give if respiratory rate is less than 8 breaths/minute. sodium chloride 0.9 % injection 10 mL [...] 1215 (New Bag - Provider: Pau Watts RIno)1449 (Stopped - Provider: Pau Watts R.N.) 20 [...] a respiratory rate less than 8 breaths/minute. bjxglpgxm-zgxtbalukkh-rpwvmzneznshj debra n recombinant (Ophthalmic Block Solution #2) [...] injection documented in this encounter Care Teams Grader Operator Relationship Specialty Start Date End Date Elsewhere, Pcp PCP - General Family Medicine 03/01/21 documented as of this encounter
--- OUTSIDE RECORDS SUMMARY | 2022-03-19 13:30 | XMS_ITS | Clinical Summary ---
:1940 Author Organization [employer] [facility] [place] [address] Care Team Providers Name Role Phone Ryan Barreto MD Primary Care Provider [phone] Allergies Active Allergy Reactions Severity Noted Date Comments Cyclobenzaprine Thrush 02/13/2022 Lisinopril Hyperkalemia 04/16/2013 Medications Medication Sig Dispensed Refills Start End Status Date Date ASPIRIN 81 MG TAB Once daily 0 03/12/20 A ctive 07 ACCU-CHEK MULTICLIX use as directed 102 0 02/04/20 Active LANCET 09 ACCU-CHEK YOSHI use to monitor 1 0 03/16/20 Active MONITORING diabetes. 09 KITIndications: Diabetes mellitus type II CPAPIndications: JEAN CARLOS Full face mask with cushion x 1 every 3 months, full face mask cushion 1 x every month, Headgear x 1 every 6 months, Length of Need: 99 months, Frequency of use: 1 Device 2 07/23/19 Ac tive on CPAP Daily 20 sildenafil citrate Take 1 Tablet 6 tablet. 4 07/04/20 Active (VIAGRA) 100 mg (100 mg) by 21 tabletIndications: mouth once Erectile dysfunction, daily if needed unspecified erectile for Erectile dysfunction type Dysfunction. Take 30min to 4 hours before sexual activity. Max 100mg/24hr. Needle, Disp, 30 G 30 As directed. 100 Each 08/08/19 Active gauge x /2 22 ndleIndications: Type 2 diabetes mellitus with stage 3 chronic kidney disease, without long-term current use of insulin (HC) omeprazole (PRILOSEC) TAKE 1 CAPSULE 90 Capsule 2 10/15/19 Active 20 mg Delayed-Release DAILY BEFORE A 22 capsuleIndications: MEAL Laryngopharyngeal reflux (LPR) simvastatin (ZOCOR) 10 Take 1 Tablet 90 Tablet 3 01/17/20 Active mg tabletIndications: (10 mg) by 22 Hyperlipidemia LDL mouth at goal <100 bedtime. losartan (COZAAR) 25 Take 1 Tablet 90 Tablet 3 01/17/20 Active mg tabletIndications: (25 mg) by 22 HTN (hypertension) mouth once daily. liraglutide (Victoza Inject 1.2 mg 18 mL 3 01/17/20 Active 3-Yunior) 0.6 mg/0.1 mL subcutaneous 22 (18 mg/3 mL) once daily. injectionIndications: Type 2 diabetes mellitus with stage 3 chronic kidney disease, without long-term current use of insulin, unspecified whether stage 3a or 3b CKD (HC) hydroCHLOROthiazide 50 Take 1 Tablet 90 Tablet 3 01/17/20 Active mg tabletIndications: (50 mg) by 22 HTN (hypertension) mouth once daily. glipiZIDE Take 1 Tablet 90 Tablet 3 01/17/20 Active extended-release (10 mg) by 22 (GLUCOTROL XL) 10 mg mouth once Extended-Release daily before a tabletIndications: meal. Type 2 diabetes mellitus with stage 3 chronic kidney disease, without long-term current use of insulin, unspecified whether stage 3a or 3b CKD (HC) atenoloL (TENORMIN) 50 Take 1 Tablet 90 Tablet 3 01/17/20 Active mg tabletIndications: (50 mg) by 22 Essential hypertension mouth once daily. Prodigy No Coding Dispense item 200 Each 0 01/17/20 Active stripIndications: Type covered by pt 22 2 diabetes mellitus ins. E11.65 with stage 3 chronic NIDDM type II, kidney disease, uncontrolled - without long-term Test 2 current use of times/day. insulin, unspecified Reason: High whether stage 3a or 3b A1C, insulin CKD (HC) start. insulin glargine, INJECT 54 UNITS 90 mL 3 01/26/20 Active U-100, (Lantus UNDER THE SKIN 22 Solostar U-100 DAILY AT Insulin) 100 unit/mL BEDTIME (3 mL) penIndications: Type 2 diabetes mellitus with stage 3 chronic kidney disease, without long-term current use of insulin, unspecified whether stage 3a or 3b CKD (HC) ketoconazole 2% Apply topically 60 g 0 08/17/20 Active topical (NIZORAL) to affected 22 creamIndications: area(s) 2 times Balanitis daily. predniSONE (DELTASONE) Use as directed 60 Tablet 2 03/14/20 Active 10 mg along with 20 22 tabletIndications: mg tabs Temporal arteritis (HC) predniSONE (DELTASONE) Take 2 Tablets 60 Tablet 2 03/14/20 Active 20 mg (40 mg) by 22 tabletIndications: CRP mouth once elevated daily with a meal. predniSONE (DELTASONE) Take 3 Tablets 30 Tablet 0 02/13/20 Discontinued 20 mg (60 mg) by 22 022 (Reorder tabletIndications: CRP mouth once (E-cancel not elevated daily with a sent)) meal for 10 days. clotrimazole (MYCELEX Dissolve 1 70 Tablet 0 02/14/20 JAKE) 10 mg Tablet (10 mg) 022 trocheIndications: in the mouth 5 Thrush times daily for 14 days. predniSONE (DELTASONE) Take 3 Tablets 60 Tablet 0 02/21/ Discontinued 20 mg (60 mg) by 22 022 (*Medicat ion tabletIndications: CRP mouth once adjustment) elevated daily with a meal. ketoconazole 2% Apply topically 60 g 0 03/06/20 Discontinued topical (NIZORAL) to affected 22 022 (Reorder creamIndications: area(s) 2 times (E-cancel not Balanitis daily. sent)) Active Problems Problem Noted Date Temporal arteritis 02/21/2022 JEAN CARLOS 02/08/2007 AHI-55 08/19/2017 HTN (hypertension) 12/14/2015 Type 2 diabetes mellitus with stage 3 chronic kidney d isease, without 06/07/2015 long-term current use of insulin CKD (chronic kidney disease) stage 3, GFR 30-59 ml/min 11/14/2010 Colon polyps 12/29/2009 Overview: Colonoscopy 12/2009 polyps repeat in 3 ye ars Colonoscopy 11/2012 diverticulosis repeat in 5 years Colonoscopy 06/2018 normal, repeat in 5 years Unspecified sleep apnea 02/06/2007 Overview: 01/09/2007, AHI-55.5, CPAP Endothelial corneal dystrophy Overview: eye's Thyroid nodule Overview: benign colloid Resolved Problems Problem Noted Date Resolved Date CKD (chronic kidney disease) stage 3, GFR 30-59 ml/min 11/1411/14/2010 Encounters Date Type Specialty Care Team Description 03/19/2022 Nurse Triage Magaly Grier RN Infecti on (Right toenail , right toe inf ected and leg swelling) 03/15/2022 Telephone Ryan Barreto MD 03/14/2022 Office Visit VoteRyan alonzo Medication Dami Quesada MD (Prednisone, bl ood sugars are high ) 03/14/2022 Telephone Ryan Barreto MD 03/14/2022 Travel 03/07/2022 Ryan Rogers return call ( return MD Dipak call/) 03/07/2022 Telephone Ryan Barreto Ma, MD (Nizoral) 03/06/2022 Office Visit Ryan Barreto Follow Up (Bl ood MD Dipak sugars); Ankle Pain/problem (B ilateral ankle pain. Ank les are locking. This s tarted after starting on Prednisone 1 mo nth ago. ) 03/06/2022 Travel 03/05/2022 Nurse Triage Nishi Russell, High Blo od Sugar RN 03/05/2022 Telephone Ryan Barreto Diabetic Ques tion MD Dipak 02/21/2022 Office Visit Ryan Barreto Follow Up (Ja w Dipak ashley MD cannot chew, go es back into throat, sy mptoms from artery bio psy on 02/16/22) 02/21/2022 Office Visit Oracio Monzon R, AuD Hearing Problem 02/21/2022 Telephone Ryan Barreto Ma, MD 02/20/2022 Orders Only Lab, [facility] 02/20/2022 Travel 02/20/2022 Orders Only Ryan Barreto <No scans att ached> MD Dipak 02/19/2022 Telephone Pam Arora (patho logy) MD Shandra 02/16/2022 Office Visit Pam Arora MD 02/16/2022 Lab Requisition Pam Arora MD 02/16/2022 Telephone Ryan Barreto MD 02/15/2022 Ancillary Procedure 02/15/2022 Office Visit MarvinrishiOracio leger Jinny, AuD Hearing Aid 02/15/2022 Travel 02/14/2022 Office Visit Pam Arora Consult (Consu lt- MD Shandra temporal lobe b iopsy ) 02/14/2022 Telephone Ryan Barreto MD 02/14/2022 Transcribe Orders Pam Arora MD 02/13/2022 Office Visit [facility] Follow Up (Lab s ) DEVENDRA Massey 02/13/2022 Travel 02/09/2022 Orders Only Lab, [facility] Outside Order ( Order Date, 2, Renee... 02/09/2022 Telephone [facility] Testing (SED r ate and DEVENDRA Massey CRP) 02/09/2022 Telephone [facility] Questions (Shannan ting) DEVENDRA Massey 02/08/2022 Office Visit [facility] Jaw Pain (Thro at and jaw DEVENDRA Massey pain - trouble s eating, chewing difficu lties (2 weeks)); Headac he (Headaches -sta rts at the back of the head, and radiates to ears; dull and consta nt - if touching front of head, it feels like a sunburn); Ear Problem (Not hearing we ll); Eye Problem (Brief vision problem last we ek) 02/08/2022 Travel 02/07/2022 Nurse Triage VotelRyan Jaw Pain MD Dipak 01/25/2022 Telephone VotelRyan MD 01/17/2022 Telephone Ryan Barreto (lantus) MD Dipak 01/16/2022 Office Visit Ryan Barreto Diabetes MD Dipak 01/16/2022 Travel 01/01/2022 Refill Ryan Barreto MD (Glipizide Extended-releas e) 12/28/2021 Refill Ryan Barreto MD (Losartan) from Last 3 Months Immunizations Name Administration Dates Next Due AMB Influenza, IIV3 (Age >=3 05/17/2008 years)(Flu Clinic Only) AMB Influenza, IIV4 PF (=>6 mos 04/30/2013 Flulaval,Fluzone Fluarix)(Flu Clinic Only) Amb Influenza, Inact (High-dose) (Flu 04/21/2014 Clinic Only) COVID-19 vaccine (Moderna 10/07/2020, 09/09/2020 100mcg/0.5mL) PF, MDV COVID-19 vaccine (Geosophic 11/06/2021 30mcg/0.3mL) 12YO+ MECHE-SUCROSE PF, MDV Hepatitis A (Adult) 08/08/2006 Inactivated Polio Vaccine 08/15/2006 Influenza A (H1N1), Inactivated (Age 0107/29/2009 >=3 Years) Influenza Virus, Unspecified 03/25/2020, 04/03/2018 Influenza, High-dose Inactivated 04/30/2018, 04/30/2016 Influenza, High-dose Quadrivalent 04/26/2021 Inactivated Influenza, IIV3 (Age >=3 years) 04/18/2015, 04/03/2012, 03/23, 05/22/2009, 05/02/2007 Influenza, Inactivated IIV3 (Age 65+ 04/07/2019, 05/15/2017 Years) Preserv Free Pneumococcal Poly,23-Valent 08/08/2006 (Pneumovax) Pneumococcal conj 13-Valent (Prevnar 12/21/2015 13) Td (Age >=7 Years) 09/02/2002 Tdap 04/24/2012 Typhoid (injectable) 08/08/2006 Zoster (Shingrix-RZV, recombinant) 06/03/2018, 04/02/2018 Zoster (Zostavax-ZVL, live) 04/24/2012 Family History Medical History Relation Name Comments Cancer Father lung-smoker Heart Disease Mother SD Hypertension Mother Diabetes Paternal Grandmother Diabetes Sister Relation Name Status Comments Father Mother Paternal Grandmother Sister Social History Tobacco Use Types Packs/Day Years Used Date Former Smoker Cigarettes 1 10 Smokeless Tobacco: Never Used Tobacco Cessation: Counseling Given: Yes Comments: smoked cigars and cigarettes years ago Alcohol Use Standard Drinks/Week Comments Yes 7 (1 standard drink = 0.6 oz pure alcoho l) cocktail/evening Alcohol Habits Answer Date Recorded How often do you have a drink containing alcohol? 2-3 times a week 05/19/2020 How many drinks containing alcohol do you have on a 1 or 2 05/19/2020 typical day when you are drinking? How often do you have six or more drinks on one Never 05/19/2020 occasion? Comment: Not asked Sex Assigned at Date Recorded Not on file COVID-19 Exposure Response Date Recorded In the last 10 days, have you been in contact with No / Unsu re 03/14/2022 9:04 AM CDT someone who was confirmed or suspected to have Coronavirus/COVID-19? Obstetrics History Last Filed Vital Signs Vital Sign Reading Time Taken Comments Blood Pressure 118/66 03/14/2022 9:09 AM CDT Pulse 69 03/14/2022 9:09 AM CDT Temperature 36.9 ??C (98.4 ??F) 02/08/2022 9:14 AM CDT Respiratory Rate 16 06/11/2016 10:26 AM [employer] Oxygen Saturation 99% 03/14/2022 9:09 AM CDT Inhaled Oxygen Concentration - - Weight 100.2 kg (221 lb) 03/14/2022 9:09 AM CDT Height 175.3 cm (5' 9) 03/14/2022 9:09 AM CDT Body Mass Index 32.64 03/14/2022 9:09 AM CDT Plan of Treatment Upcoming Encounters Date Type Specialty Care Team Description 03/27/2022 Patient Outreach Sheri Price RN [phone] [place] [phone] (Crescencio kumar) 03/28/2022 Office Visit VotelRyan MD [address] [phone] (Crescencio kumar) 07/11/2022 Office Visit Ryan Barreto MD [address] [phone] (Crescencio kumar) Health Maintenance Due Date Last Done Comments Medicare Wellness for age 65+ 01/23/2019 01/23/2018, 2015 Influenza for age 65+ 03/22/2022 04/26/2021, 03/25/2020, 04/07/2019, Additional history exists Tetanus booster 04/24/2022 04/24/2012, 09/02/2002 Depression screening for age 12+ 07/04/2022 07/04/2021, , 12/31/2019, Additional history exists BMI (ht and wt on same day) for 03/14/2023 03/14/2022, 08/0 09/2021, age 18+ 01/16/2022, Additional history exists Tdap Completed 04/24/2012 Pneumococcal series for age 65+ Completed 12/21/2015, 07/22 Zoster (shingles) series for age Completed 06/03/2018, 06/2018, 50+ 04/24/2012 COVID-19 vaccine series Completed 11/06/2021, 05/31/2021, 10/07/2020, Additional history exists Procedures Procedure Name Priority Date/Time Associated Comments Diagnosis SEDIMENTATION RATE Routine 03/14/2022 10:05 Temporal arteritis Results for this AM CDT (HC) procedure are i n the results section. C-REACTIVE PROTEIN Routine 03/14/2022 10:05 Temporal arteritis Results for this AM CDT (HC) procedure are i n the results section. C-REACTIVE PROTEIN Routine 02/20/2022 1:37 PM Temporal arterit is Results for this CDT (HC) procedure are i n the results section. SEDIMENTATION RATE Routine 02/20/2022 1:37 PM Temporal arterit is Results for this CDT (HC) procedure are i n the results section. LAB TRACKING EVENT Routine 02/16/2022 11:01 AM CDT PATH TISSUE EXAM Routine 02/16/2022 11:01 Results for this AM CDT procedure are i n the results section. MR HEAD BRAIN STROKE STAT 02/15/2022 1:04 PM Transient visu al Results for this WO MR ANGIO HEAD WO CDT loss, bilateral proce dure are in NECK WWO the results section. CBC WITH AUTO Routine 02/09/2022 4:05 PM Temporal arteritis Re sults for this DIFFERENTIAL CDT (HC) procedure are i n the results section. C-REACTIVE PROTEIN Routine 02/09/2022 4:05 PM Temporal arterit is Results for this CDT (HC) procedure are i n the results section. SEDIMENTATION RATE Routine 02/09/2022 4:05 PM Temporal arterit is Results for this CDT (HC) procedure are i n the results section. CBC WITH AUTO Routine 02/09/2022 4:05 PM Temporal arteritis Re sults for this DIFFERENTIAL CDT (HC) procedure are i n the results section. URINE ALBUMIN TO Routine 01/16/2022 10:33 Type 2 diabetes Resu lts for this CREATININE RATIO, AM CDT mellitus with stage pro cedure are in RANDOM 3 chronic kidney the results disease, without section. long-term current use of insulin, unspecified whether stage 3a or 3b CKD (HC) CBC WITH AUTO Routine 01/16/2022 10:28 HTN (hypertension) Resu lts for this DIFFERENTIAL AM CDT procedure are i n the results section. CBC WITH AUTO Routine 01/16/2022 10:28 HTN (hypertension) Resu lts for this DIFFERENTIAL AM CDT procedure are i n the results section. HEMOGLOBIN A1C Routine 01/16/2022 10:28 Type 2 diabetes Result s for this AM CDT mellitus with stage procedur e are in 3 chronic kidney the results disease, without section. long-term current use of insulin, unspecified whether stage 3a or 3b CKD (HC) BASIC METABOLIC PANEL Routine 01/16/2022 10:24 HTN (hypertensi on) Results for this AM CDT procedure are i n the results section. ALT (SGPT) Routine 01/16/2022 10:24 HTN (hypertension) Resul ts for this AM CDT procedure are i n the results section. LIPID PANEL W REFLEX Routine 01/16/2022 10:24 Lipid screening Results for this MEASURED LDL AM CDT procedure are i n the results section. from Last 3 Months Results SEDIMENTATION RATE (03/14/2022 10:05 AM CDT)Only the most recent of3 results within the time period is included. [facility] gist Method Time Signature SEDIMENTATION RATE 1 <20 mm/hr 03/14/2022 FREYA FLANAGAN LTH 3:05 PM CDT LABORATORY-CHARLENE TRAL LABORATORY Specimen Anatomical Collection Method / Collection Time Recei niru Time (Source) Location / Volume Laterality Blood BLOOD SPECIMEN / Venipuncture / 03/14/2022 10:05 03/14 Unknown Unknown AM CDT 10:07 AM CDT Ryan Barreto MD HEMATOLOGY Performing Organization Address City/[facility]/ZIP Code Phon e Number Coub [address] [facility] [place] [address] LABORATORY-CENTRAL 2000 LABORATORY C-REACTIVE PROTEIN (03/14/2022 10:05 AM CDT)Only the most recent of3 results within the time period is included. P athologist Signature C-REACTIVE 0.46 <0.50 03/14/2022 [facility] [place] PROTEIN mg/dL 7:20 PM CDT LABORATORY-[facility] LABORATORY Specimen Anatomical Collection Method / Collection Time Recei niru Time (Source) Location / Volume Laterality Blood BLOOD SPECIMEN / Venipuncture / 03/14/2022 10:05 03/14 Unknown Unknown AM CDT 10:07 AM CDT Ryan Barreto MD CHEMISTRY Performing Organization Address City/[facility] Phon e Number Coub [address] [facility] [place] [address] LABORATORY-CENTRAL 2000 LABORATORY LAB TRACKING EVENT (02/16/2022 11:01 AM CDT) Specimen Anatomical Collection Method Collection Time Receive d Time (Source) Location / / Volume Laterality Other (Other) Client Collect / 02/16/2022 11:01 2021 Unknown AM CDT 10:08 PM CDT Pam Arora MD LAB BILL ONLY Performing Organization Address [facility] Phon e Number Cou[address] [place] [address] LABORATORY-CENTRAL 2000 LABORATORY PATH TISSUE EXAM (02/16/2022 11:01 AM CDT) Component Value Ref Test Analysis Performed At Patholo gist Range Method Time Signature Case Report Pathology Report ?Case: [id number] ? 02/19/2022 YARITZAINA Authorizing Provider: ??Pam Burt MD ??Collected: ? 02/16/2022 1101 ? 10:01 AM HEALTH Ordering Location: ? [facility] CENTRAL LAB ?Received: ?02/17/2022 0859 ? CDT MARA VIVAR Pathologist: ? Savita Payan, DO ? ENTRAL Specimen: ?Right Tempora l Artery Biopsy ? LABORATORY Final A) TEMPORAL ARTERY, RIGHT, BIOPSY: 02/19 [facility] Electronically Diagnosis 1. Positive for temporal arteritis 10:01 AM HEALTH signed by CDT LABORATORY-Noe Batres on, SONIA cameron LABORATORY for Savita Parada , DO on 2 at 10:01 AM Comment Case seen in 02/19/2022 [facility] consultation 10:[address] LIMT LABORATORY-Noe Webb. ENTRAL LABORATORY Clinical The patient is 02/19/2022 [facility] Information an 81-year-old 10:01 AM HEALTH man with a CDT LABORATORY-C several week ENTRAL history of jaw LABORATORY claudication right-sided headache, and eye pain which has been going on for about 3 weeks. CRP was elevated. The patient was started on prednisone. Gross A) Received in formalin, lab eled with the patient's name and right temporal artery, is a 1.8 cm in length and 0.2 cm in diameter vascular segment. ??The specimen is serially sectioned to reveal a pinp 02/19/2022 [facility] Description oint lumen. ??The specimen is entirely submitted in 1 cassette. 10:[address] [facility] CDT LABORATORY-C DS 02/17/2022 ENTRAL LABORATORY Microscopic The final 02/19/2022 FREYA Description diagnosis is 10:01 AM HEALTH based on CDT LABORATORY-C microscopic ENTRAL examination of LABORATORY appropriate sections of all specimens. Additional 02/19/2022 FERYA Information Interpreted at [facility], Central Laboratory - [address], [place] [address] 10:01 AM HEALTH CDT LABORATORY-C ENTRAL LABORATORY Specimen Anatomical Collection Method Collection Time Receive d Time (Source) Location / / Volume Laterality Other (Right 02/16/2022 11:01 02/17/2022 8:59 Temporal Artery AM CDT AM CDT Biopsy) Pam Arora MD PATHOLOGY/CYTOLOGY Performing Organization Address City/State/ZIP Code Phon e Number [facility] [place] [address] [place] [address] LABORATORY-CENTRAL 2000 LABORATORY MR HEAD BRAIN STROKE WO MR ANGIO HEAD WO NECK WWO (02/15/2022 1:04 PM CDT) Anatomical Region Laterality Modality NECK, CAROTID, HEAD Magnetic Resonance Specimen (Source) Anatomical Collection Method Collection Time Re ceived Time Location / / Volume Laterality 02/15/2022 1:31 PM CDT Addenda Addendum by Ramone Forrest MD o n 02/15/2022 1:31 PM CDT For Patients: ??As a result of the Cures Act, medical imaging exams and procedure reports are released immediately into your electronic medical record. ??You may view this repo rt before your referring provider. ?? If you have questions, please contact [facility] care provider. INDICATION: Head and jaw pain on both sides. Tempora l arteritis. TECHNIQUE: MRI brain: Multiplanar multisequence MR imaging acquired without intravenous contrast. MRA head: [id number]-[id number] imaging acquire d. MRA neck: Sass-wj-vkutoo and postcontras t imaging acquired. COMPARISON: None. FINDINGS: MRI brain: Prominence of the ventricles and sulci c ompatible with mild diffuse cerebral volume loss. No mass effect or midline shift. Scattered and patchy T2 FLAIR hyperintensities in the supratentorial white matter, typical for lyoj-ty-ujztuzni chronic prosper rovascular ischemic changes. No intracranial hemorrhage or pathologic extra-axial fluid collection. No diffusion restriction to suggest acute i nfarction. The major arterial flow voids of the sku llbase are preserved. Thinning of the ocular lenses. The paranasal sinuses are well aerated. The mastoid air cells are clear. Left temporomandibular joint degenerativ e changes. MRA head: Artifact degrades image quality. The visualized internal carotid, middle cerebral, and anterior cerebral arteries are widely patent. The vertebral arteries are widely patent . Moderately severe mid basilar artery stenosis. Mild narrowing of the p osterior cerebral artery P2 segments. No intracranial aneurysm or high flow va scular malformation. MRA neck: The brachiocephalic trunk and subclavian arteries are widely patent. The common carotid artery origins are chacon boptimally evaluated. The common carotid arteries are otherwise widely pa tent. The internal carotid arteries are widely patent. The right vertebral artery is dominant. The vertebral artery origins are suboptimally evaluated. The vertebral ar teries are otherwise widely patent. Lesion expanding the right thyroid lobe measuring approximately 5 cm. IMPRESSION: MRI brain: 1. No acute infarction, mass effect, or intracranial hemorrhage. 2. Rvhi-yw-ehedlmtf chronic microvascula r ischemic changes and popn-rg-eqyfkhtu diffuse cerebral volume loss. MRA head/neck: 1. Moderately severe mid basilar artery stenosis. 2. Wide patency of the cervical internal carotid arteries. 3. The vertebral artery origins are subo ptimally evaluated secondary to artifact. The vertebral arteries are oth erwise widely patent. 4. Right thyroid lesion measuring approx imately 5 cm. Thyroid ultrasound is recommended for further evaluation no t previously performed. Dictated by Ramone Forrest MD @ 2 1:31:37 PM (Electronically Signed) Addendum by Ramone Forrest MD o n 02/15/2022 1:31 PM CDT For Patients: ??As a result of the 21st Century Cures Act, medical imaging exams and procedure reports are released immediately into your electronic medical record. ??You may view this repo rt before your referring provider. ?? If you have questions, please contact yo health care provider. INDICATION: Head and jaw pain on both sides. Tempora l arteritis. TECHNIQUE: MRI brain: Multiplanar multisequence MR imaging acquired without intravenous contrast. MRA head: [id number] imaging acquire d. MRA neck: Batu-ql-impngp and postcontras t imaging acquired. COMPARISON: None. FINDINGS: MRI brain: Prominence of the ventricles and sulci c ompatible with mild diffuse cerebral volume loss. No mass effect or midline shift. Scattered and patchy T2 FLAIR hyperintensities in the supratentorial white matter, typical for bdut-pd-givdfebk chronic prosper rovascular ischemic changes. No intracranial hemorrhage or pathologic extra-axial fluid collection. No diffusion restriction to suggest acute i nfarction. The major arterial flow voids of the sku llbase are preserved. Thinning of the ocular lenses. The paranasal sinuses are well aerated. The mastoid air cells are clear. Left temporomandibular joint degenerativ e changes. MRA head: Artifact degrades image quality. The visualized internal carotid, middle cerebral, and anterior cerebral arteries are widely patent. The vertebral arteries are widely patent . Moderately severe mid basilar artery stenosis. Mild narrowing of the p osterior cerebral artery P2 segments. No intracranial aneurysm or high flow va scular malformation. MRA neck: The brachiocephalic trunk and subclavian arteries are widely patent. The common carotid artery origins are chacon boptimally evaluated. The common carotid arteries are otherwise widely pa tent. The internal carotid arteries are widely patent. The right vertebral artery is dominant. The vertebral artery origins are suboptimally evaluated. The vertebral ar teries are otherwise widely patent. Lesion expanding the right thyroid lobe measuring approximately 5 cm. IMPRESSION: MRI brain: 1. No acute infarction, mass effect, or intracranial hemorrhage. 2. Mcrf-ly-efcgcxys chronic microvascula r ischemic changes and oodj-qj-joerwfla diffuse cerebral volume loss. MRA head/neck: 1. Moderately severe mid basilar artery stenosis. 2. Wide patency of the cervical internal carotid arteries. 3. The vertebral artery origins are subo ptimally evaluated secondary to artifact. The vertebral arteries are oth erwise widely patent. 4. Right thyroid lesion measuring approx imately 5 cm. Thyroid ultrasound is recommended for further evaluation no t previously performed. Dictated by Ramone Forrest MD @ 1:30:57 PM (Electronically Signed) Impressions 02/15/2022 1:31 PM CDT MRI brain: 1. No acute infarction, mass effect, or intracranial hemorrhage. 2. Ghor-pm-vshkgqia chronic microvascula r ischemic changes and vagy-oh-xxeziaqm diffuse cerebral volume loss. MRA head/neck: 1. Moderately severe mid basilar artery stenosis. 2. Wide patency of the cervical internal carotid arteries. 3. The vertebral artery origins are subo ptimally evaluated secondary to artifact. The vertebral arteries are otherwise widely patent. 4. Right thyroid lesion measuring approx imately 5 cm. Thyroid ultrasound is recommended for further evaluation not previously performed. Dictated by Ramone Forrest MD @ 1:31:12 PM (Electronically Signed) Narrative 02/15/2022 1:31 PM CDT For Patients: ??As a result of the Cures Act, medical imaging exams and procedure report s are released immediately into [facility]. ??You may view this report before your referring provider. ??If you have questions, please contact your health care provider. INDICATION: Head and jaw pain on both sides. Tempora l arteritis. TECHNIQUE: MRI brain: Multiplanar multisequence MR imaging acquired without intravenous contrast. MRA head: Nfba-kv-kxvvuc imaging acquire d. MRA neck: Nfup-vy-ggoflg and postcontras t imaging acquired. COMPARISON: None. FINDINGS: MRI brain: Prominence of the ventricles and sulci c ompatible with mild diffuse cerebral volume loss. No mass effect or midline shift. Scattered and patchy T2 FLAIR hyperintensities in the supratentorial white roselia er, typical for tygp-xo-mqvvrcgt chronic microvascular ischemic changes. No intracranial hemorrhage or pathologic extra-axial fluid collection. No diffusion restriction to suggest acute infarction. The major arterial flow voids of the sku llbase are preserved. Thinning of the ocular lenses. The paranasal sinuses are well aerated. The mastoid air cells are clear. Left temporomandibular joint degenerativ e changes. MRA head: Artifact degrades image quality. The visualized internal carotid, middle cerebral, and anterior cerebral arteries are widely patent. The vertebral arteries are widely patent . Moderately severe mid basilar artery stenosis. Mild narrowing of the posterior cerebral artery P2 segments. No intracranial aneurysm or high flow va scular malformation. MRA neck: The brachiocephalic trunk and subclavian arteries are widely patent. The common carotid artery origins are chacon boptimally evaluated. The common carotid arteries are otherwise widely patent. The internal carotid arteries are widely patent. The right vertebral artery is dominant. The vertebral artery origins are suboptimally evaluated. The vertebral arteries are otherwise widely patent. Lesion expanding the right thyroid lobe measuring approximately 5 cm. Procedure Note Ramone Forrest MD - 02/15/2022F ormatting of this note might be different from the original. For Patients: As a result of the ntury Cures Act, medical imaging exams and procedure reports are released immediately into your electronic medical record. You may view this report before your referring provider. If you have questions, please contact [facility] health care provider. INDICATION: Head and jaw pain on both sides. Tempora l arteritis. TECHNIQUE: MRI brain: Multiplanar multisequence MR imaging acquired without intravenous contrast. MRA head: Kqzh-pb-gtaoqy imaging acquire d. MRA neck: Rlda-ju-lyuxfw and postcontras t imaging acquired. COMPARISON: None. FINDINGS: MRI brain: Prominence of the ventricles and sulci c ompatible with mild diffuse cerebral volume loss. No mass effect or midline shift. Scattered and patchy T2 FLAIR hyperintensities in the supratentorial white matter, typical for majr-mv-xampflig chronic prosper rovascular ischemic changes. No intracranial hemorrhage or pathologic extra-axial fluid collection. No diffusion restriction to suggest acute infarction. The major arterial flow voids of the sku llbase are preserved. Thinning of the ocular lenses. The paranasal sinuses are well aerated. The mastoid air cells are clear. Left temporomandibular joint degenerativ e changes. MRA head: Artifact degrades image quality. The visualized internal carotid, middle cerebral, and anterior cerebral arteries are widely patent. The vertebral arteries are widely patent . Moderately severe mid basilar artery stenosis. Mild narrowing of the posterior cerebral artery P2 segments. No intracranial aneurysm or high flow va scular malformation. MRA neck: The brachiocephalic trunk and subclavian arteries are widely patent. The common carotid artery origins are chacon boptimally evaluated. The common carotid arteries are otherwise widely patent. The internal carotid arteries are widely patent. The right vertebral artery is dominant. The vertebral artery origins are suboptimally evaluated. The vertebral arteries are otherwise widely patent. Lesion expanding the right thyroid lobe measuring approximately 5 cm. IMPRESSION: MRI brain: 1. No acute infarction, mass effect, or intracranial hemorrhage. 2. Naxo-sx-pjrnriwl chronic microvascula r ischemic changes and uzlw-br-phlknjpa diffuse cerebral volume loss. MRA head/neck: 1. Moderately severe mid basilar artery stenosis. 2. Wide patency of the cervical internal carotid arteries. 3. The vertebral artery origins are subo ptimally evaluated secondary to artifact. The vertebral arteries are otherwise widely patent. 4. Right thyroid lesion measuring approx imately 5 cm. Thyroid ultrasound is recommended for further evaluation not previously performed. Dictated by Ramone Forrest MD @ 2 1:31:12 PM (Electronically Signed) [facility]SAY MR (ABNORMAL) CBC WITH AUTO DIFFERENTIAL (02/09/2022 4:05 PM CDT)Only the most recent of2 resultswithin the time period is included. [facility] Method Time Signature WHITE BLOOD 8.6 4.5 - 02/09/2022 [place] COUNT 11.0 4:26 PM [facility] thou/cu LABORATORY mm RED BLOOD COUNT 4.04 (L) 4.30 - 02/09/2022 [place] 5.90 4:26 PM [facility] mil/cu mm LABORATORY HEMOGLOBIN 12.7 (L) 13.5 - 02/09/2022 [place] 17.5 g/dL 4:26 PM [facility] LABORATORY HEMATOCRIT 40.0 37.0 - 02/09/2022 [place] 53.0 % 4:26 PM [facility] LABORATORY MCV 99 80 - 100 02/09/2022 [place] fL 4:26 PM [facility] LABORATORY MCH 31.4 26.0 - 02/09/2022 [place] 34.0 pg 4:26 PM [facility] LABORATORY MCHC 31.8 (L) 32.0 - 02/09/2022 [place] 36.0 g/dL 4:26 PM [facility] LABORATORY RDW 12.7 11.5 - 02/09/2022 [place] 15.5 % 4:26 PM [facility] LABORATORY PLATELET COUNT 212 140 - 440 02/09/2022 [place] thou/cu 4:26 PM [facility] mm LABORATORY MPV 9.5 6.5 - 02/09/2022 [place] 11.0 fL 4:26 PM [facility] LABORATORY NEUTROPHILS 73.0 % 02/09/2022 [place] 4:26 PM [facility] LABORATORY LYMPHOCYTES 14.1 % 02/09/2022 [place] 4:26 PM [facility] LABORATORY MONOCYTES 11.0 % 02/09/2022 [place] 4:26 PM [facility] LABORATORY EOSINOPHILS 1.5 % 02/09/2022 [place] 4:26 PM [facility] LABORATORY BASOPHILS 0.4 % 02/09/2022 [place] 4:26 PM [facility] LABORATORY ABSOLUTE 6.3 1.7 - 7.0 02/09/2022 [place] NEUTROPHILS thou/cu 4:26 PM [facility] mm LABORATORY ABSOLUTE 1.2 0.9 - 2.9 02/09/2022 [place] LYMPHOCYTES thou/cu 4:26 PM [facility] mm LABORATORY ABSOLUTE 0.9 (H) <0.9 02/09/2022 [place] MONOCYTES thou/cu 4:26 PM [facility] mm LABORATORY ABSOLUTE 0.1 <0.5 02/09/2022 [place] EOSINOPHILS thou/cu 4:26 PM [facility] mm LABORATORY ABSOLUTE 0.0 <0.3 02/09/2022 [place] BASOPHILS thou/cu 4:26 PM [facility] mm LABORATORY Specimen Anatomical Collection Method / Collection Time Recei niru Time (Source) Location / Volume Laterality Blood BLOOD SPECIMEN / Venipuncture / 02/09/2022 4:05 2021 4:07 Unknown Unknown PM CDT PM CDT Hiwot Grimaldo MD HEMATOLOGY Performing Organization Address City/State/ZIP Code Phon e Number [facility] LABORATORY [address] [place] [address] (ABNORMAL) URINE ALBUMIN TO CREATININE RATIO, RANDOM (01/16/2022 10:33 AM CDT) [facility] Method Time Signature ALB RAND URINE 60.1 mg/L 01/16/2022 [facility] 8:29 PM CDT LABORATORY-[facility] TRAL LABORATORY CREATININE,URIN 1.95 g/L 01/16/2022 [facility] E 8:29 PM CDT LABORATORY-[facility] TRAL LABORATORY ALBUMIN TO 30.8 (H) <30.0 mg/g 01/16/2022 [facility] CREATININE creat 8:29 PM CDT LABORATORY-[facility] RATIO,RAND UR TRAL LABORATORY Specimen Anatomical Collection Method Collection Time Receive d Time (Source) Location / / Volume Laterality Urine URINE SPECIMEN / Non-Blood / 01/16/2022 10:33 022 Unknown Unknown AM CDT 10:33 AM CDT Narrative [facility] LABORATORY-CENTRAL LABORAT ORY - 01/16/2022 8:29 PM CDT If Albumin to Creatinine Ratio is elevated, consider the following: ? Elevations seen with incipient nephr opathy associated ?? with diabetes mellitus or hypertensi on. Stress, exercise, ?? hematuria, and urinary tract infecti on may also produce ?? elevated results. If clinically preet cated, confirm with ?? 24 Hour Albumin to Creatinine Ratio. Ryan Barreto MD URINE Performing Organization Address City/State/[facility] Code Phon e Number [facility] [address] [place] [address] LABORATORY-CENTRAL 2000 LABORATORY (ABNORMAL) HEMOGLOBIN A1C MONITORING (POCT) (01/16/2022 10:28 AM CDT) Analysis Performed At Patho logist Time Signature HEMOGLOBIN A1C 7.0 (H) <=6.4 % 01/16/2022 [facility] MONITORING 10:39 AM CDT [place] (POCT) [facility] Specimen Anatomical Collection Method / Collection Time Recei niru Time (Source) Location / Volume Laterality Blood BLOOD SPECIMEN / Venipuncture / 01/16/2022 10:28 01/16 Unknown Unknown AM CDT 10:29 AM CDT Narrative [facility] - 2021 10:39 AM CDT ? (<=6.9%) ? Indicates good control ? (7.0% to 7.9%) ? Indicates fa ir control ? (>=8.0%) ? Indicates poor control ?? NOTE: ??These thresholds are guideli juanjo and ?individual targets may va ry. Falsely low levels may be seen with: Recent Transfusion, Recent Significant B lood Loss, Hemolytic Diseases, or Falsely elevated levels may be seen with : Untreated Anemias, Splenectomy ? Ryan Barreto MD CHEMISTRY Performing Organization Address City/State/ZIP Code Phon e Number [employer] [address] [place] [address] (ABNORMAL) LIPID PANEL W REFLEX MEASURED LDL (01/16/2022 10:24 AM CDT) [facility] gist Method Time Signature CHOLESTEROL,TOTAL 154 100 - 199 01/16/2022 [facility] mg/dL 7:08 PM CDT LABORATORY-[facility] TRAL LABORATORY TRIGLYCERIDES 84 <150 01/16/2022 [facility] mg/dL 7:08 PM CDT LABORATORY-[facility] TRAL LABORATORY HDL CHOLESTEROL 29 (L) >40 mg/dL 01/16/2022 [facility] 7:08 PM CDT LABORATORY-[facility] TRAL LABORATORY NON-HDL 125 <145 01/16/2022 [facility] CHOLESTEROL mg/dl 7:08 PM CDT LABORATORY-[facility] TRAL LABORATORY CHOL/HDL RATIO 5.31 (H) <4.50 01/16/2022 [facility] 7:08 PM CDT LABORATORY-[facility] TRAL LABORATORY LDL CHOLESTEROL 108 <=130 01/16/2022 [facility] mg/dL 7:08 PM CDT LABORATORY-[facility] TRAL LABORATORY VLDL CHOLESTEROL 17 <=30 01/16/2022 [facility] mg/dL 7:08 PM CDT LABORATORY-[facility] TRAL LABORATORY PROVIDER ORDERED RANDOM 01/16/2022 [facility] STATUS 7:08 PM CDT LABORATORY-[facility] TRAL LABORATORY Specimen Anatomical Collection Method / Collection Time Recei niru Time (Source) Location / Volume Laterality Blood BLOOD SPECIMEN / Venipuncture / 01/16/2022 10:24 01/16 Unknown Unknown AM CDT 11:17 AM CDT Ryan Barreto MD CHEMISTRY Performing Organization Address City/State/ZIP Code Phon e Number [facility] [address] [place] [address] LABORATORY-CENTRAL 2000 LABORATORY ALT (SGPT) (01/16/2022 10:24 AM CDT) athologist Signature ALT (SGPT) 12 8 - 45 IU/L 01/16/2022 [facility] 7:08 PM CDT LABORATORY-CENT RAL LABORATORY Specimen Anatomical Collection Method / Collection Time Recei niru Time (Source) Location / Volume Laterality Blood BLOOD SPECIMEN / Venipuncture / 01/16/2022 10:24 01/16 Unknown Unknown AM CDT 11:17 AM CDT Ryan Barreto MD CHEMISTRY Performing Organization Address City/State/ZIP Code Phon e Number [facility] [address] [place] [address] LABORATORY-CENTRAL 2000 LABORATORY (ABNORMAL) BASIC METABOLIC PANEL (01/16/2022 10:24 AM CDT) [facility] Method Time Signature SODIUM 140 135 - 145 01/16/2022 [employer] mmol/L 7:07 PM CDT LABORATORY-[facility] TRAL LABORATORY POTASSIUM 4.9 3.5 - 5.0 01/16/2022 [facility] mmol/L 7:07 PM CDT LABORATORY-[facility] TRAL LABORATORY CHLORIDE 102 98 - 110 01/16/2022 [facility] mmol/L 7:07 PM CDT LABORATORY-[facility] TRAL LABORATORY CO2,TOTAL 26 21 - 31 01/16/2022 [facility] mmol/L 7:07 PM CDT LABORATORY-[facility] TRAL LABORATORY ANION GAP 12 5 - 18 01/16/2022 [facility] 7:07 PM CDT LABORATORY-[facility] TRAL LABORATORY GLUCOSE 155 (H) 65 - 100 01/16/2022 [facility] mg/dL 7:07 PM CDT LABORATORY-[facility] TRAL LABORATORY CALCIUM 9.0 8.5 - 10.5 01/16/2022 [facility] mg/dL 7:07 PM CDT LABORATORY-[facility] TRAL LABORATORY BUN 27 (H) 8 - 25 01/16/2022 [facility] mg/dL 7:07 PM CDT LABORATORY-[facility] TRAL LABORATORY CREATININE 1.61 (H) 0.72 - 01/16/2022 [facility] 1.25 mg/dL 7:07 PM CDT LABORATORY-[facility] TRAL LABORATORY BUN/CREAT RATIO 17 10 - 20 01/16/2022 [facility] 7:07 PM CDT LABORATORY-[facility] TRAL LABORATORY eGFR 42 (L) >90 01/16/2022 [facility] mL/min/1.7 7:07 PM CDT LABORATORY-[facility] 3m2 TRAL LABORATORY Comment: As of 2021, eGFR is calcu lated by the CKD-EPI creatinine equation without race adjustment. eGFR can be inf luenced by muscle mass, exercise, and diet. The reported eGFR is an estimation only and is only applicable if the renal function is stable. Specimen Anatomical Collection Method / Collection Time Recei niru Time (Source) Location / Volume Laterality Blood BLOOD SPECIMEN / Venipuncture / 01/16/2022 10:24 01/16 Unknown Unknown AM CDT 11:17 AM CDT Ryan Barreto MD CHEMISTRY Performing Organization Address City/State/ZIP Code Phon e Number [facility] [address] 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
--- OUTSIDE RECORDS SUMMARY | 2022-03-19 13:31 | XMS_ITS | Encounter Summary ---
:1940 Author Organization [facility] Address [address] [place] [address] Care Team Providers Name Role Phone Elsewhere, Pcp Primary Care Provider Unavailable Encounter Details Date Type Department Care Team Description 05/08/2021 Hospital Encounter Department of Artur Barnhart Corneal Laboratory Medicine Rafa Dinh Dystrophy Right Eye in [place], [address] [place], [place] [address] [facility] [address] [place], [place] [phone] (Work) [phone] Social History Tobacco Use Types Packs/Day Years Used Date Smoking Tobacco: Unknown Sex Assigned at Date Recorded Not on file documented as of this encounter Medications at Time of Discharge [...] 10 mg Take 1 tablet by 0 /10/2020 tablet mouth daily. vardenafiL (Levitra) 20 mg Take 1 tablet by 0 10/2014 tablet mouth as directed. moxifloxacin (VIGAMOX) 0.5 % 1 drop to 3 mL 1 021 06/13/2021 ophthalmic solution operated eye 4 times per day for 1 week, starting the day before surgery prednisoLONE acetate (PRED After surgery, 1 10 mL 3 08/202006/13/2021 FORTE) 1 % ophthalmic drop to operated suspension eye 4x/day and then as directed by your physician documented as of this encounter Plan of Treatment Not on filedocumented as of this encounter Procedures Procedure Name Priority Date/Time Associated Diagnosis Comme nts SARS CORONAVIRUS-2 Routine 05/08/2021 10:38 AM Endothelial Cor sue Results for this RNA, V CDT Dystrophy Right Eye procedur e are in the results section. documented in this encounter Results SARS Coronavirus-2 RNA, V Asymptomatic (05/08/2021 10:38 AM CDT) [facility] Method Time Signature SARS-CoV-2 Swab, 05/08/2021 [facility] Specimen Nasopharynx 8:38 PM CDT Source SARS CoV-2 Undetected Undetected 05/08/2021 [facility] RNA, TMA 8:38 PM CDT Comment: SARS-CoV-2 RNA absent. This result does not rule out COVID-19 in the patient, as the sensitivity of the test depends o n the timing of the specimen collection and the quality of the specim en. Result should be correlated with patient's history and clinical presentat ion. ----ADDITIONAL INFORMATION---- This molecular amplification test was pe rformed using the Aptima SARS-CoV-2 assay ([employer] on the [employer] tem under emergency use authorization (EUA) by the U.S. Food and Drug Administ ration. Fact sheets for this EUA assay can be fo und at the following links: For Healthcare Providers: https://www.fd a.gov/media/631247/download For Patients: https://www.fda.gov/media/ 130437/download Specimen Anatomical Collection Method Collection Time Receive d Time (Source) Location / / Volume Laterality Varies 05/08/2021 10:38 05/08/2021 4:17 (Nasopharynx) AM CDT PM CDT Artur Barnhart M.D. 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
--- OUTSIDE RECORDS SUMMARY | 2022-03-19 13:31 | XMS_ITS | Encounter Summary ---
:1940 Author Organization [facility] Address [address] [place] [address] Care Team Providers Name Role Phone Elsewhere, Pcp Primary Care Provider Unavailable Reason for Visit Reason Comments Post-op Follow-up Outpatient (Routine) - Closed Specialty Diagnoses / Procedures Referred By Contact Refer red To Contact Ophthalmology Artur Barnhart M. D. [facility] [address] [place] [phone] Referral ID Status Reason Start Date Expiration Date Visits Requ ested Visits Authorized [id number] Closed 02/20/2021 02/20/2022 1 1 Encounter Details Date Type Department Care Team Description 03/02/2021 Office [facility] allen Dinh M.D. Cornea (Primary Dx) [address] [place] [phone] Social History Tobacco Use Types Packs/Day Years Used Date Smoking Tobacco: Unknown Sex Assigned at Date Recorded Not on file documented as of this encounter Progress Notes Lizzie Slater C.OWil - 03/02/2021 10:30 AM CDT Post op instructions given and drops instilled. Artur Barnhart M.D. - 03/02/2021 10:30 AM CDT #1 s/p DMEK, left eye. Doing well. Topical antibiotic 1 drop 4x/day for 1 week. Prednisolone acetate 1%, 1 drop 4x/day. Wear shield at night and glasses during the day. Call if decreased vision, increased photophobia, pain, discharge or increased redness occurs. Instruction pamphlet given, Care following corneal transplant ( [id number]). Lay flat on back for half the time spread across waking hours for next 3 days. Follow-up in 1 week. #2 Fuchs endothelial dystrophy, both eyes ?? #2 Pseudophakia, both eyes IOLs stable in the bag. ?? #3 Diabetes, no retinopathy Observe ?? #4 Mild macular pigment changes, left>right Doubt this is enough to explain blurred vision. documented in this encounter Plan of Treatment Not on filedocumented as of this encounter Visit Diagnoses Diagnosis Aftercare Transplant Cornea - Primary documented in this encounter Care Teams Rotary Driller Helper Relationship Specialty Start Date End Date Elsewhere, Pcp PCP - General Family Medicine 03/01/21 documented as of this encounter
--- OUTSIDE RECORDS SUMMARY | 2022-03-19 13:31 | XMS_ITS | Encounter Summary ---
:1940 Author Organization [facility] Address [address] [place] [address] Care Team Providers Name Role Phone Unavailable Primary Care Provider Unavailable Encounter Details Date Type Department Care Team Description 02/20/2021 Ancillary Procedure Department of Ophthalmology Social History Tobacco Use Types Packs/Day Years Used Date Smoking Tobacco: Unknown Sex Assigned at Date Recorded Not on file documented as of this encounter Plan of Treatment Not on filedocumented as of this encounter Procedures Procedure Name Priority Date/Time Associated Comments Diagnosis OPHTHALMOLOGY IMAGE Routine 02/20/2021 12:00 Resu lts for this EXAM AM CDT procedure are i n the results section. documented in this encounter Results Eyes [facility]acam-Ophthalmology Image Exam (02/20/2021 12:00 AM CDT) Specimen (Source) Anatomical Location Collection Method / Collectio n Time Received Time / Laterality Volume Narrative [facility] - 02/20/2021 1:06 PM CDT This order has been created and auto-finalized to support the import of images acquired without order. The clini esdras documentation to support these images can be found on the encounter josemanuel t produced images. Provider Not In System IMG NON RAD IMAGING PROCEDUR ES Performing Organization Address City/State/ZIP Code Phon e Number [facility] NA documented in this encounter Visit Diagnoses Not on filedocumented in this encounter
--- OUTSIDE RECORDS SUMMARY | 2022-03-19 13:31 | XMS_ITS | Encounter Summary ---
:1940 Author Organization [facility] Address [address] [place] [address] Care Team Providers Name Role Phone Elsewhere, Pcp Primary Care Provider Unavailable Encounter Details Date Type Department Care Team Description 05/11/2021 Immunization Department of Family Medicine, [facility], in [place], [place] [address] [place] [address] Social History Tobacco Use Types Packs/Day Years Used Date Smoking Tobacco: Unknown Smokeless Tobacco: Never Sex Assigned at Date Recorded Not on file documented as of this encounter Plan of Treatment Not on filedocumented as of this encounter Visit Diagnoses Not on filedocumented in this encounter Care Teams Preventive Medicine Physician Relationship Specialty Start Date End Date Elsewhere, Pcp PCP - General Family Medicine 03/01/21 documented as of this encounter
--- OUTSIDE RECORDS SUMMARY | 2022-03-19 13:31 | XMS_ITS | Encounter Summary ---
:1940 Author Organization [facility] Address [address] [place] [address] Care Team Providers Name Role Phone Unavailable Primary Care Provider Unavailable Encounter Details Date Type Department Care Team Description 02/20/2021 Ancillary Department of Artur Barnhart C orneal Procedure Ophthalmology allen Dinh M.D. Dystrophy Bilateral [place], [place] [address] [facility] [address] [place] [phone] Social History Tobacco Use Types Packs/Day Years Used Date Smoking Tobacco: Unknown Sex Assigned at Date Recorded Not on file documented as of this encounter Plan of Treatment Not on filedocumented as of this encounter Procedures Procedure Name Priority Date/Time Associated Diagnosis Comme nts SCHEIMPFLUG Routine 02/20/2021 1:00 PM Endothelial Corneal Re sults for this TOMOGRAPHY CDT Dystrophy Bilateral procedur e are in (PENTACAM) - OU - the result s BOTH EYES section. documented in this encounter Results Scheimpflug Tomography (Pentacam) - OU - Both Eyes (02/20/2021 1:00 PM CDT) Specimen (Source) Anatomical Location Collection Method / Collectio n Time Received Time / Laterality Volume Narrative OPHTHALMOLOGY IMAGING EXAM - 02/21/20 21 3:36 PM CDT Clinical history of Fuchs dystrophy: Tomography right eye shows irregular iso pachs, displaced thinnest point and focal posterior depression. Tomography left eye shows irregular isop achs, displaced thinnest point and focal posterior depression. Artur Barnhart M.D. OPHTH OTHER Performing Organization Address City/State/ZIP Code Phon e Number OPHTHALMOLOGY IMAGING EXAM documented in this encounter Visit Diagnoses Diagnosis Endothelial Corneal Dystrophy Bilateral documented in this encounter
--- OUTSIDE RECORDS SUMMARY | 2022-03-19 13:31 | XMS_ITS | Encounter Summary ---
:1940 Author Organization [facility] Address [address] [place] [address] Care Team Providers Name Role Phone Elsewhere, Pcp Primary Care Provider Unavailable Reason for Visit Reason Comments Pre-Surgical COVID-19 screening Encounter Details Date Type Department Care Team Description 05/04/2021 Clinical Department of Artur Barnhart Pre-Surgical Communication Ophthalmology allen Dinh M.D. COVID-19 screening [place], [place] [address] [facility] [address] [place] [phone] Social History Tobacco Use Types Packs/Day Years Used Date Smoking Tobacco: Unknown Sex Assigned at Date Recorded Not on file documented as of this encounter Miscellaneous Notes Telephone Encounter - Edelmira Greenberg - 05/04/2021 2:25 PM CDT Telephone screening done on 05/04/21 1. In the last 14 days have you had close contact with a lab confirmed positive case of COVID-19? No ??? Close contact is defined as any of the following while not wearing appropriate PPE: Living with an infectious person (ie, household contact), or being within approximately 6 feet of an infectious person for a total of 15 minutes or more, over a 24-hour period, or having direct contact with secretions from an infectious person (eg, being coughed on). 2. Have you been tested for COVID-19 with a positive or pending result? No A positive answer to any of these questions will result in the patient being considered interview-positive. This knowledge will be communicated to the clinical team responsible for the operation and the patient will be placed back on the deferred list and transferred to the COVID Nurse Line. Patient is considered Interview- Negative following phone interview 3. Instructed patient to contact Spraying Machine Operator if they develop symptoms related to COVID-19 prior to surgery. Instructions were given for the following tests prior to surgery. A. Self-Quarantine -Pt was informed of immediate self-quarantine following the nasal swab either at home if local/regional or in their hotel. B. COVID Testing -Patient will be tested 2 days before their operation at the [facility] Location [place] Testing - Adult patients will be scheduled at [facility] on weekdays and [facility] on weekends and holidays. - Pediatric patients will be scheduled at [address] on weekdays and [facility] on weekends and holidays. -COVID nasal pharyngeal swab has been ordered -Pt understands and will receive testing on May 08, 2021 at 10:50 a.m. COVID-19 Symptoms Cough Shortness of breath Sore throat Diarrhea Nausea Vomiting Respiratory Distress Chills Muscle Aches Repeated Shaking with Chills Headache Loss of smell and/or taste documented in this encounter Plan of Treatment Not on filedocumented as of this encounter Visit Diagnoses Not on filedocumented in this encounter Care Teams Sr Risk Management Consultant Relationship Specialty Start Date End Date Elsewhere, Pcp PCP - General Family Medicine 03/01/21 documented as of this encounter
--- OUTSIDE RECORDS SUMMARY | 2022-03-19 13:31 | XMS_ITS | Encounter Summary ---
:1940 Author Organization [facility] Address [address] [place] [address] Care Team Providers Name Role Phone Elsewhere, Pcp Primary Care Provider Unavailable Reason for Referral Outpatient (Routine) - Closed Specialty Diagnoses / Procedures Referred By Contact Refer red To Contact Ophthalmology Artur Barnhart M. D. [address] [address] Referral ID Status Reason Start Date Expiration Date Visits Requ ested Visits Authorized [id number] Closed 04/06/2021 04/06/2022 1 1 Scheduling Instructions The week after surgery Outpatient (Routine) - Closed Specialty Diagnoses / Procedures Referred By Contact Brendan rashid To Contact Ophthalmology Artur Barnhart M. D. [address] [phone] Referral ID Status Reason Start Date Expiration Date Visits Requ ested Visits Authorized [id number] Closed 04/06/2021 04/06/2022 1 1 Scheduling Instructions Day after surgery Reason for Visit Outpatient (Routine) - Closed Specialty Diagnoses / Procedures Referred By Contact Brendan rashid To Contact Ophthalmology Artur Barnhart M. D. [address] [phone] Referral ID Status Reason Start Date Expiration Date Visits Requ ested Visits Authorized [id number] Closed 03/08/2021 03/08/2022 1 1 Encounter Details Date Type Department Care Team Description 04/06/2021 Office Visit Department of Artur Barnhart Aftercare Tra nsplant Cornea (Primary Dx); Ophthalmology in [place] Endothelial Corneal Dystrophy Right Eye [place], [place] [address] [place] [phone] Social History Tobacco Use Types Packs/Day Years Used Date Smoking Tobacco: Unknown Sex Assigned at Date Recorded Not on file documented as of this encounter Progress Notes Artur Barnhart M.D. - 04/06/2021 9:00 AM CDT #1 s/p DMEK, left eye. Doing well. Prednisolone acetate 1%, taper to 1 drop 3x/day. Call if decreased vision, increased photophobia, pain, discharge or increased redness occurs. #2 Fuchs endothelial dystrophy, both eyes He is doing well with his left eye and would like to improve vision in his right eye. We discussed the options. Plan: DMEK, right eye I discussed the risks, benefits and alternatives to corneal transplantation in detail with the patient and whoever else was present. The patient verbalizes understanding and wishes to proceed with surgery. Also discussed the necessity of other members of the surgical team participating in the interventional procedure. Some of the risks discussed include loss of vision, infection, intraoperative hemorrhage, inflammation, postoperative glaucoma, graft rejection, graft failure, pupillary block and graft dislocation that may require further procedures. #2 Pseudophakia, both eyes IOLs stable in the bag. ?? #3 Diabetes, no retinopathy Observe ?? #4 Mild macular pigment changes, left>right Doubt this is enough to explain blurred vision. #5 Choroidal nevus left eye With possible org pigment, no subretinal fluid or elevation on exam. Observe. AELT Lizzie Slater C.O.T. - 04/06/2021 9:00 AM CDT Listing for DMEK surgery, right eye. Date of surgery 04/25/[address] Barnhart Preop instructions given REFRACTIVE INFORMATION Glasses Read EXAM/CVI INFO Informed consent form given to patient and signed by patient, Patient given brochure with call in instructions for report time, Diabetic instructions given, Patient teach back completed, Covid testing ordered, Eye drops prescribed, Post ops ordered and Tissue ordered (transplant surgery) documented in this encounter Plan of Treatment Scheduled Referrals Name Type Priority Associated Order Schedule Diagnoses Ophthalmology Post Op Outpatient Referral Routine Expected: (clinic) 04/26/2021, Expires: 04/06/2024 Ophthalmology Post Op Outpatient Referral Routine Expected: (clinic) 05/01/2021 (Approximate), Expires: 04/06/2024 documented as of this encounter Results SARS Coronavirus-2 RNA, V Asymptomatic (05/08/2021 10:38 AM CDT) [facility] Method Time Signature SARS-CoV-2 Swab, 05/08/2021 MKTO [...] pe rformed using the Aptima SARS-CoV-2 assay ([employer] on the [employer] tem under emergency use authorization (EUA) by the U.S. Food and Drug Administ ration. Fact sheets for this EUA assay can be fo und at the following links: For Healthcare Providers: https://www.fd a.gov/media/660985/download For Patients: https://www.fda.gov/media/ 697607/download Specimen Anatomical Collection Method Collection Time Receive d Time (Source) Location / / Volume Laterality Varies 05/08/2021 10:38 05/08/2021 4:17 (Nasopharynx) AM CDT PM CDT Artur Barnhart M.D. LAB MICROBIOLOGY - GENERAL O RDERABLES Performing Organization Address City/State/ZIP Code Phon e Number 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
--- OUTSIDE RECORDS SUMMARY | 2022-03-19 13:31 | XMS_ITS | Encounter Summary ---
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 in [place] ENDOTHELIAL [place] [address] [facility] KERATOPLASTY. [address] [place] [phone] Social History Tobacco Use Types Packs/Day Years Used Date Smoking Tobacco: Unknown Smokeless Tobacco: Never Sex Assigned at Date Recorded Not on file documented as of this encounter Last Filed Vital Signs Vital Sign Reading Time Taken Comments Blood Pressure 150/76 05/10/2021 12:36 PM CDT Pulse 59 05/10/2021 12:40 PM CDT Temperature 37.1 ??C (98.8 ??F) 05/10/2021 11:03 AM CDT Respiratory Rate 18 05/10/2021 12:40 PM CDT Oxygen Saturation 94% 05/10/2021 12:40 PM CDT Inhaled Oxygen Concentration - - Weight 101 kg (223 lb 12.3 oz) 05/10/2021 10:57 AM CDT Height 177.1 cm (5' 9.72) 05/10/2021 10:57 AM CDT Body Mass Index 32.36 05/10/2021 10:57 AM CDT documented in this encounter Discharge Instructions Discharge InstructionsJessica Acosta R.N. - 05/10/2021 12:43 PM CDT Images from the original note [...] or urgent concerns, please contact Dr. Artur Barnhart Mon- Sat 8-5 at [phone] [facility] Head Librarian, (after business hours, and ask for the material control associate eye doctor) Please bring all of your [...] % 1 drop to 3 mL 1 04/06/ 021 06/13/2021 ophthalmic solution operated eye 4 times per day for 1 week, starting the day before surgery prednisoLONE acetate (PRED After surgery, 1 10 mL 3 08/202006/13/2021 FORTE) 1 % ophthalmic drop to operated suspension eye 4x/day and then as directed by your physician documented as of this encounter OR Notes Op Note - Artur Barnhart M.D. 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 Findings As expected. Complications None Description of Procedure A final pause occurred just before the start of the procedure, during which the entire procedure team actively confirmed the correct patient, procedure, side, special equipment, and special requirements. The eye was prepared and draped in the usual sterile ophthalmic manner, and a lid speculum was placed. Paracenteses were placed at the limbus and acetylcholine was injected to constrict the pupil. Viscoelastic was injected into the anterior chamber and under the inferior iris. An inferior peripheral iridotomy was created. A temporal clear corneal incision was created using a 2.75-mm keratome. The cornea l surface was marked to show an 8-mm diameter. A syringe was prepared with 20% sulfur hexafluoride. Attention was then turned to the donor tissue which was pre-stripped and trephined (7.75 mm) by the eye bank. The central Descemet membrane graft was lifted completely from the underlying stroma and stained with trypan blue solution. Host Descemet membrane was stripped larger than the 8-mm surface shubham. Host Descemet membrane was removed from the eye. Viscoelastic was evacuated from the anterior chamber, and the chamber was re-formed with balanced salt solution. The temporal wound was checked to accommodate the Straiko-Ren tube. After staining the donor, the Descemet membrane graft was drawn into the Straiko-Ren tube, which was filled with balanced salt solution. The endothelial graft was injected into the eye through the temporal incision. The temporal incision was closed with a 10-0 nylon interrupted suture. The tap technique was used to unfold and orient the Descemet membrane graft within the anterior chamber. Once the graft was unfolded and orientation verified by the S stamp, sulfur hexafluoride was injected in theanterior chamber for a complete fill. The gas fill was maintained for several minutes. Balanced salt solution was injected into the anterior chamber to reduce the gas fill to approximately 80%. Subconjunctival injections of antibiotic and steroid were administered in the inferior fornix. The lid speculum was removed, and Polymyxin B/neomycin/dexamethasone ointment was applied to the eye followed a patch and Watts shield. The patient tolerated the procedure well, and there were no immediate complications. The patient was instructed to lay supine in the recovery area for 60 minutes after surgery. Artur Barnhart M.D. documented in this encounter Miscellaneous Notes Result Encounter Note - Artur Barnhart M.D. - 05/12/2021 10:58 AM CDT I have reviewed the final pathology report and the identified diagnosis is consistent with the patient's clinical presentation. documented in this encounter Plan of Treatment Not on filedocumented as of this encounter Procedures Procedure Name Priority Date/Time Associated Diagnosis Comme nts FUNGAL CULTURE, Routine 05/10/2021 12:04 Endothelial Corneal R esults for this ROUTINE PM CDT Dystrophy Right Eye procedur e are in the results section. SURGICAL PATHOLOGY Routine 05/10/2021 11:58 Endothelial Cornea l Results for this AM CDT Dystrophy Right Eye procedur e are in the results section. KERATOPLASTY DESCEMET 05/10/2021 11:16 Endothelial Cor sue MEMBRANE ENDOTHELIUM AM CDT Dystrophy Right Eye GLUCOSE POCT, B Routine 05/10/2021 11:05 Results for this AM CDT procedure are i n the results section. ADULT OXYGEN THERAPY Routine 05/10/2021 10:31 AM CDT documented in this encounter Results Fungal Culture, Routine (05/10/2021 12:04 PM CDT) [facility] Method Time Signature Fungal No growth 06/04/2021 DTL Culture, after 24 1:01 AM GAMES DEALER Routine days of incubation. Specimen (Source) Anatomical Collection Method Collection Time Re ceived Time Location / / Volume Laterality Tissue (Cornea, 05/10/2021 12:04 Donor) PM CDT Artur Barnhart M.D. LAB MICROBIOLOGY - GENERAL O RDERABLES Performing Organization Address City/[facility]/ZIP Code Phon e Number [facility] - [address] Surgical Pathology (05/10/2021 11:58 AM CDT) Component Value Ref Test Analysis Performed Pathologis t Range Method Time At [facility] 05/11/2021 DT 2:17 PM CDT Report Beba Antony M.D. [id number] 05/11/2021 DT electronically 2:17 PM CDT signed by I verify that I have examined all relevant slides/materials for the specimen(s) and rendered or confirmed the diagnosis. Gross Description A. ??Received in formalin labeled with patient name, medical 05/11/2021 DTL record number as right Descemet's membrane are two ??clear 2:17 PM CDT membranous tissues 5.0 x 4.0 x 0.1 mm ??received on white paper. ??Yellow dye is added to the specimen and it is entirely submitted in cassette A1. ??Grossed by [facility]. 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 Diagnostic impression based on morphologic features observed on H&E and PAS stained sections (PAS stained blocks A1). Specimen (Source) Anatomical Collection Method Collection Time Re ceived Time Location / / Volume Laterality Tissue (Eye, 05/10/2021 11:58 Right) AM CDT Narrative This result has an attachment that is no t available. Artur Barnhart M.D. LAB SURG PATH ORDERABLES Performing Organization Address [facility] Phon e Number ED [facility] - [address] [place], [place] [address] [place] [address] Glucose, POCT (05/10/2021 11:05 AM CDT) Analysis Performed At Patho logist Time [facility] Glucose, POCT, 119 70 - 140 05/10/2021 PCMO B mg/dL 11:09 AM CDT Site Capillary 05/10/2021 PCMO 11:09 AM CDT Specimen Anatomical Collection Method Collection Time Receive d Time (Source) Location / / Volume Laterality Blood 05/10/2021 11:05 05/10/2021 AM CDT 11:09 AM CDT Unknown Provider LAB POCT ORDERABLES-MANUAL Performing Organization Address City/State/ZIP Code Phon e Number POC [facility] [address] [place] [id number] OUTPATIENT LABS PCMO [facility] - [place], [place] [id number] [place] [address] documented in this encounter Visit Diagnoses Diagnosis Endothelial Corneal Dystrophy Left Eye - Primary 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 documented in this encounter Admitting Diagnoses Diagnosis Endothelial Corneal Dystrophy Left Eye documented in this encounter Administered Medications Inactive Administered Medications - up to 3 most recent administrations Medication Order MAR Action Action Date Dose Rate Site acetylcholine intraocular Given 05/10/2021 11:44 AM 0.3 mL Right Eye injection (MIOCHOL-E) CDT As needed, Starting on Sat05/10/21 at 1144, Intra-Op balanced salt solution ophthalmic Given 05/10/2021 12:00 PM CDT 500 mL Right Eye irrigation (BSS) As needed, Starting on Sat05/10/21 at 1138, Intra-Op Given 05/10/2021 11:38 AM CDT 45 mL Righ t Eye ceFAZolin subconjunctival 25 mg Given 05/10/2021 12:25 PM CDT 25 mg Right Eye (ANCEF) 25 mg, subconjunctival, Once in surgery, OR use only, Starting on Sat05/10/21 at 1040, For 1 dose, Intra-Op, SUBCONJUNCTIVAL Use Only. Amount Dispensed Exceeds Dose. 5 mL vial. dexAMETHasone injection 2 mg Given 05/10/2021 12:25 PM CDT 2 mg Right Eye (DECADRON) 2 mg, subconjunctival, Once in surgery, OR use only, Starting on Sat05/10/21 at 1040, For 1 dose, Intra-Op fentaNYL injection 25 mcg (SUBLIMAZE) Given 05/10/2021 12:12 PM CDT 25 mcg 25 mcg, intravenous, Every 2 min PRN, sedation, or pain before and during sedation procedure, Starting on Sat05/10/21 at 1030, Administer over 1 minute immediately prior to the procedure. May repeat every 2 minutes to a maximum of 200 mcg, until pain score of 3 or less, or until the patient meets the pain comfort goal. Do not give if respiratory rate is less than 8 breaths/minute Given 05/10/2021 11:35 AM CDT 25 mcg lactated ringers New Bag 05/10/2021 11:04 AM CDT 20 mL/hr 20 mL/hr 20 mL/hr, intravenous, Continuous, Starting on Sat05/10/21 at 1045 aiejzwais-iouniuoqhks-flgnmfzxvycte human Given 05/10/2021 11:36 6.5 mL Right Eye recombinant (Ophthalmic Block Solution #2) AM CDT 9.5 mg-2.4 mg-7.5 Units/mL 12 mL 12 mL, ophthalmic, Once in surgery, OR use only, Starting on Sat05/10/21 at 1040, For 1 dose, Intra-Op midazolam (PF) injection 0.5 mg (VERSED) Given 05/10/2021 11:57 AM CDT 0.5 mg 0.5 mg, intravenous, Every 2 min PRN, sedation, Starting on Sat05/10/21 at 1030, If RASS greater than -3, give additional dose(s) of 0.5 mg IV every 2 minutes for a maximum of 5 mg. Do not give if respiratory rate is less than 8 breaths/minute. Given 05/10/2021 11:34 AM CDT 0.5 mg neomycin-polymyxin B-dexameth Given 05/10/2021 12:26 PM 1 applic ation Right Eye ophthalmic ointment (MAXITROL) CDT As needed, Starting on Sat05/10/21 at 1226, Intra-Op povidone-iodine 10 % external solution Given 05/10/2021 11:37 AM CDT 5 mL Right Eye (BETADINE) As needed, Starting on Sat05/10/21 at 1137, Intra-Op povidone-iodine 5 % ophthalmic Given 05/10/2021 11:33 AM CDT 2 d rops Right Eye solution (BETADINE) As needed, Starting on Sat05/10/21 at 1133, Intra-Op proparacaine 0.5 % ophthalmic Given 05/10/2021 11:[address] Right Eye solution (ALCAINE) As needed, Starting on Sat05/10/21 at 1133, Intra-Op sodium chloride 0.9 % injection 10 mL 10 mL, intravenous, As needed, line care , Starting on Sat05/10/21 at 1106, Pre-Op, Peripheral Intravenous Catheter and Rapid Infusion Cat heter, prior to blood sampling, post blood transfusion or post blood samplin g sodium chloride 0.9 % injection 3 mL 3 mL, intravenous, As needed, line care, Starting on Sat05/10/21 at 1106, Pre-Op, Prior to and following infusion and betw een multiple consecutive infusions: sodium chloride 0.9 % injection sodium chloride 0.9 % injection 3 mL 3 mL, intravenous, Every 12 hours schedu led, First dose on Sat05/10/21 at 2100, Pre-Op, Peripheral Intravenous Catheter and Rapid Infu andry Catheter, when no infusion to maintain patency documented in this encounter Active and Recently Administered Medications Times are shown in CDT. Scheduled Medication Order 05/08/2021 05/09/2021 05/10/2021 sodium chloride 0.9 % injection 3 mL 3 mL, intravenous, Every 12 hours schedu led, First dose on Sat05/10/21 at 2100, Pre-Op, Peripheral Intravenous Catheter and Rapid Infusion Catheter, when no infusion to maintain patency Continuous Medication Order 05/08/2021 05/09/2021 05/10/2021 lactated ringers 1104 (New Bag - Provider: Jamaal Whitmore R.N.)1337 (Stopped - Provider: Katya Gutierrez RRafNRaf) 20 mL/hr, intravenous, Continuous, Starting on Sat05/10/21 at 1 045 PRN Medication Order 05/08/2021 05/09/2021 05/10/2021 acetylcholine intraocular injection (MIOCHOL-E) (CANCELED) 1144 (Given - Provider: Artur Barnhart M.D.) As needed, Starting on Sat05/10/21 at 1144, Intra-Op balanced salt solution ophthalmic irrigation (BSS) (CANCELED) 1138 (Given - Provider: Artur Barnhart M.D.)1200 (Given - Provider: Artur Barnhart M.D.) As needed, Starting on Sat05/10/21 at 1138, Intra-Op ceFAZolin subconjunctival 25 mg (ANCEF) (COMPLETED) 1225 (Given - Provider: Artur Barnhart M.D.) 25 mg, subconjunctival, Once in surgery, OR use only, Starting on Sat05/10/21 at 1040, For 1 dose, Intra-Op, SUBCONJUNCTIVAL Use Only. Amount Dispensed Exceeds Dose. 5 mL vial. dexAMETHasone injection 2 mg (DECADRON) (COMPLETED) 1225 (Given - Provider: Artur Barnhart M.D.) 2 mg, subconjunctival, Once in surgery, OR use only, Starting on Sat05/10/21 at 1040, For 1 dose, Intra-Op fentaNYL injection 25 mcg (SUBLIMAZE) 1135 (Given - Provider: Maggi Gutierrez RRafNRaf)1212 (Given - Provider: Kaushik Modi RRafNRaf) 25 mcg, intravenous, Every 2 min PRN, se dation, or pain before and during sedation procedure, Starting on Sat05/10/21 at 1030, Administer over 1 minute immediately prior to the procedure. May repeat ev nancy 2 minutes to a maximum of 200 mcg, u ntil pain score of 3 or less, or until the patient meets the pain comfort goal. Do not give if respiratory rate is less than 8 breaths/minute flumazeniL injection 0.2 mg (ROMAZICON) 0.2 mg, intravenous, Once as needed, rev ersal, Starting on Sat05/10/21 at 1030, For 1 dose, Administer once if patient has a RASS score of -4, -5 and has a respiratory rate less than 8 breaths/minute. kxpjozpkk-ylfawiheojh-aqxqikqocepat debra n recombinant (Ophthalmic Block Solution #2) 9.5 mg-2.4 mg-7.5 Units/mL 12 mL (COMPLETED) 1136 (Given - Provider: Artur Barnhart M.D.) 12 mL, ophthalmic, Once in surgery, OR u se only, Starting on Sat05/10/21 at 1040, For 1 dose, Intra-Op midazolam (PF) injection 0.5 mg (VERSED) 1134 (Given - Provider: Renetta DunlapNRaf)1157 (Given - Provider: Maggi Gutierrez R.N.) 0.5 mg, intravenous, Every 2 min PRN, se dation, Starting on Sat05/10/21 at 1030, If RASS greater than -3, give additional dose(s) of 0.5 mg IV every 2 minutes for a maximum of 5 mg. Do not give if respiratory rate is less than 8 breaths/minute. midazolam (PF) injection 1 mg (VERSED) 1 mg, intravenous, Once as needed, sedat ion, Starting on Sat05/10/21 at 1030, For 1 dose naloxone injection 0.2 mg (NARCAN) 0.2 mg, intravenous, Once as needed, res piratory depression, Starting on Sat05/10/21 at 1030, For 1 dose, Administer once if patient has a RASS score of -4, -5 and has a respiratory rate less than 8 breaths/minute. neomycin-polymyxin B-dexameth ophthalmic ointment (MAXITROL) (CA NCELED) 1226 (Given - Provider: Artur Barnhart M.D.) As needed, Starting on Sat05/10/21 at 1226, Intra-Op ondansetron (PF) injection 4 mg (ZOFRAN) 4 mg, intravenous, Once as needed, nause a, vomiting, Starting on Sat05/10/21 at 1030, For 1 dose povidone-iodine 10 % external solution (BETADINE) (CANCELED) 1137 (Given - Provider: Prisca Whiteside R.N.) As needed, Starting on Sat05/10/21 at 1137, Intra-Op povidone-iodine 5 % ophthalmic solution (BETADINE) (CANCELED) 1133 (Given - Provider: Artur Barnhart M.D.) As needed, Starting on Sat05/10/21 at 1133, Intra-Op proparacaine 0.5 % ophthalmic solution (ALCAINE) (CANCELED) 1133 (Given - Provider: Artur Barnhart M.D.) As needed, Starting on Sat05/10/21 at 1133, Intra-Op sodium chloride 0.9 % injection 10 mL 10 mL, intravenous, As needed, line care , Starting on Sat05/10/21 at 1106, Pre- Op, Peripheral Intravenous Catheter and Rapid Infusion Catheter, prior to blood sampling, post blood transfusion or post blood sampling sodium chloride 0.9 % injection 3 mL 3 mL, intravenous, As needed, line care, Starting on Sat05/10/21 at 1106, Pre- Op, Prior to and following infusion and between multiple consecutive infusions: sodium chloride 0.9 % injection documented in this encounter Care Teams Warehouse Selector Relationship Specialty Start Date End Date Elsewhere, Pcp PCP - General Family Medicine 03/01/21 documented as of this encounter
--- OUTSIDE RECORDS SUMMARY | 2022-03-19 13:31 | XMS_ITS | Encounter Summary ---
:1940 Author Organization [facility] Address [address] [place] [address] Care Team Providers Name Role Phone Elsewhere, Pcp Primary Care Provider Unavailable Encounter Details Date Type Department Care Team Description 02/22/2015 Historical Ophthalmology RST OPH Artur Barnhart M.D. [address] [place], [place] [phone] (Wo rk) Social History Tobacco Use Types Packs/Day Years Used Date Smoking Tobacco: Never Assessed Sex Assigned at Date Recorded Not on file documented as of this encounter Progress Notes Artur Barnhart M.D. - 02/22/2015 12:04 PM CDT Eye General CHIEF COMPLAINT Fuchs Dystrophy referral HISTORY OF PRESENT ILLNESS Patient says that his Fuchs has been pretty stable, he was diagnosed 10 years ago. Patient denies any flashes, but has had floaters for years with no changes. Gradual decline in distance vision both eyes over the past several years. Difficulty seeing road signs. States that cataract surgery resulted in minimal improvement in vision. gwr: he has carried a diagnnosis of Fuchs for 10 years. s/p cataract surgery 2004 OD and 2003 OS. his twin sister carries a diagnosis of Fuchs as well and has not required corneal transplantation. he is having difficulty seeing both at distance and at near. his vision does not seem to fluctuate today though he does rinse the eyes in the morning. IMPRESSION / REPORT / PLAN Consult requested by: Daria Solano MD #1 Fuchs endothelial dystrophy, both eyes Overall his cornea looks compensated and thin but he is bothered by his vision and nothing else explains this. The view through the media is also hazy suggesting cornea is the problem. Discussed and atthis time we will observe and recheck in a year, sooner if worse. #2 Blurred vision, both eyes Maybe secondary to above. Glasses no help, but suggested low vison/refraction to see if this can be optimized for his work. Will suggest to Dr. Solano. #3 Diabetic, no retinopathy Observe #4 Mild macular pigment changes, left>right Doubt this is enough to explain blurred vision. #5 Pseudophakia, both eyes Stable DIAGNOSIS #1 Fuchs endothelial dystrophy, both eyes #2 Blurred vision, both eyes #3 Diabetic, no retinopathy #4 Mild macular pigment changes, left>right #5 Pseudophakia, both eyes CDM Reports - EYEGEN Id: [id number] Status: Fnl documented in this encounter Plan of Treatment Not on filedocumented as of this encounter Visit Diagnoses Not on filedocumented in this encounter Additional Health Concerns Infection Onset Date Last Indicated Resolved Time COVID19 Pending 02/22/2021 02/22/2021 02/22/2021 1:50 PM CDT COVID19 Pending 05/08/2021 05/08/2021 05/08/2021 8:39 PM CDT COVID19 Pending 05/22/2021 05/22/2021 05/22/2021 6:16 PM CDT documented as of this encounter Care Teams Deck Steward Relationship Specialty Start Date End Date Elsewhere, Pcp PCP - General Family Medicine 03/01/21 documented as of this encounter
--- OUTSIDE RECORDS SUMMARY | 2022-03-19 13:31 | XMS_ITS | Encounter Summary ---
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 Dystrophy Right Eye [place] [address] [facility] [address] [place] [id number] [phone] Social History Tobacco Use Types Packs/Day Years Used Date Smoking Tobacco: Unknown Smokeless Tobacco: Never Sex Assigned at Date Recorded Not on file documented as of this encounter Last Filed Vital Signs Vital Sign Reading Time Taken Comments Blood Pressure 114/59 05/10/2021 1:30 PM CDT Pulse 56 05/10/2021 1:35 PM CDT Temperature 37.1 ??C (98.8 ??F) 05/10/2021 11:03 AM CDT Respiratory Rate 14 05/10/2021 1:35 PM CDT Oxygen Saturation 96% 05/10/2021 1:35 PM CDT Inhaled Oxygen Concentration - - [...] urgent concerns, please contact Dr. Artur Barnhart, Mon- Fri 8-5 at [phone] [facility] Profile Mill Operator Tape Control, (after business hours, and ask for the industrial relations counselor eye doctor) Please bring all of your eyedrops with you to your next appointment. documented in this encounter Medications at Time of Discharge Medication Sig Dispensed Refills Start Date End Date aspirin [address] tablet Take 1 tablet by 0 2014 mouth daily. atenoloL (TENORMIN) 50 mg Take 1 tablet by 0 /10/2020 tablet mouth daily. glipiZIDE (GLUCOTROL XL) 10 [...] Fuchs Endothelial Corneal Dystrophy Right Eye A casting assistant actively participated and was necessary for [...] Fungal Culture, Routine (05/10/2021 12:04 PM CDT) [facility] Method Time Signature Fungal No growth 06/04/2021 DTL Culture, after 24 1:01 AM MEDICAL PATHOLOGIST Routine days of incubation. Specimen (Source) Anatomical Collection Method Collection Time Re ceived Time Location / / Volume Laterality Tissue (Cornea, 05/10/2021 12:04 Donor) PM CDT Artur Barnhart M.D. LAB MICROBIOLOGY - GENERAL O RDERABLES Performing Organization Address City/[facility] Phon e Number [facility] - [address] Surgical Pathology (05/10/2021 11:58 AM CDT) Component Value Ref Test Analysis Performed Pathologis t Range Method Time At [facility] 05/11/2021 DT 2:17 PM CDT Report Beba Antony M.D. [id number] 05/11/2021 DT electronically 2:17 PM CDT signed [...] entirely submitted in cassette A1. ??Grossed by [facility]. Interpretation FINAL DIAGNOSIS 05/11/2021 DTL Cornea, right [...] LAB SURG PATH ORDERABLES Performing Organization Address [facility] Phon e Number [facility] - [address] [place], [place] [address] [place] [address] Glucose, POCT (05/10/2021 11:05 AM CDT) Analysis Performed At Patho logist Time [facility] Glucose, POCT, 119 70 - 140 05/10/2021 PCMO B mg/dL 11:09 AM CDT Site Capillary 05/10/2021 PCMO 11:09 AM CDT Specimen Anatomical Collection Method Collection Time Receive d Time (Source) Location / / Volume Laterality Blood 05/10/2021 11:05 05/10/2021 AM CDT 11:09 AM CDT Unknown Provider LAB POCT ORDERABLES-MANUAL Performing Organization Address City/State/ZIP Code Phon e Number POC [facility] [address] [place] [id number] OUTPATIENT LABS PCMO [facility] [place] [address] [place] [facility] [address] documented in [...] Rate Site fentaNYL injection 25 mcg Given 05/10/2021 12:12 PM CDT 25 mcg (SUBLIMAZE) 25 mcg, [...] intravenous, Continuous, Starting on Sat05/10/21 at 1045 midazolam (PF) injection 0.5 mg (VERSED) Given [...] Given 05/10/2021 11:34 AM CDT 0.5 mg sodium chloride 0.9 % injection 10 mL [...] Whitmore R.N.)1337 (Stopped - Provider: Katya Gutierrez R.N.) 20 mL/hr, intravenous, Continuous, Starting on Sat05/10/21 [...] (SUBLIMAZE) 1135 (Given - Provider: Maggi Gutierrez R.N.)1212 (Given - Provider: Kaushik Modi R.N.) 25 mcg, intravenous, Every 2 min [...] a respiratory rate less than 8 breaths/minute. gmwhknknz-emhdvjqrgon-wxvljxzucurzx debra n recombinant (Ophthalmic Block Solution #2) 9.5 mg-2.4 mg-7.5 Units/mL 12 mL (COMPLETED) 1136 (Given - Provider: Artur Barnhart M.D.) 12 mL, ophthalmic, Once in surgery, OR u se only, Starting on Sat05/10/21 at 1040, For 1 dose, Intra-Op midazolam (PF) injection 0.5 mg (VERSED) 1134 (Given - Provider: Maggi Gutierrez R.N.)1157 (Given - Provider: Maggi Gutierrez R.N.) 0.5 [...] solution (BETADINE) (CANCELED) 1137 (Given - Provider: Prisac Whiteside R.N.) As needed, Starting on Sat05/10/21 [...] injection documented in this encounter Care Teams Business Planning Director Relationship Specialty Start Date End Date Elsewhere, Pcp PCP - General Family Medicine 03/01/21 documented as of this encounter
--- OUTSIDE RECORDS SUMMARY | 2022-03-19 13:31 | XMS_ITS | Encounter Summary ---
:1940 Author Organization [facility] Address [address] [place] [address] Care Team Providers Name Role Phone Elsewhere, Pcp Primary Care Provider Unavailable Reason for Visit Reason Comments Post-op Follow-up Outpatient (Routine) - Closed Specialty Diagnoses / Procedures Referred By Contact Refer red To Contact Ophthalmology Artur Barnhart M. D. [facility] [address] [place] [phone] Referral ID Status Reason Start Date Expiration Date Visits Requ ested Visits Authorized [id number] Closed 04/06/2021 04/06/2022 1 1 Encounter Details Date Type Department Care Team Description 05/11/2021 Office Visit Department of Teo Varghese M .D. [address] [place] [phone] Aftercare Transplant Cornea (Primary Dx) ; Ophthalmology in Emperatriz Liang M.D. Endothelial Corneal Dystrophy Right Eye [place], [place] [address] [place] [phone] Social History Tobacco Use Types Packs/Day Years Used Date Smoking Tobacco: Unknown Smokeless Tobacco: Never Sex Assigned at Date Recorded Not on file documented as of this encounter Progress Notes Emperatriz Liang M.D. - 05/11/2021 8:00 AM CDT #1 s/p DMEK, right eye (05/10/21) Doing well, had more pain overnight than first surgery but used oral analgesic. Pain improves with drops. Topical antibiotic 1 drop 4x/day for 1 week. Prednisolone acetate 1%, 1 drop 4x/day. Wear shield at night and glasses during the day. Call if decreased vision, increased photophobia, pain, discharge or increased redness occurs. Instruction pamphlet given, Care following corneal transplant ( [id number]). Lay flat on back for half the time spread across waking hours for next 3 days. Discussed. 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
--- OUTSIDE RECORDS SUMMARY | 2022-03-19 13:31 | XMS_ITS | Encounter Summary ---
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 in Rafa Nino ENDOTHELIAL [place] [address] [facility] KERATOPLASTY. [address] [place] [phone] Social History Tobacco Use Types Packs/Day Years Used Date Smoking Tobacco: Unknown Sex Assigned at Date Recorded Not on file documented as of this encounter Last Filed Vital Signs Vital Sign Reading Time Taken Comments Blood Pressure 135/116 03/01/2021 10:00 AM CDT Pulse 53 03/01/2021 10:10 AM CDT Temperature 36.8 ??C (98.2 ??F) 03/01/2021 8:07 AM CDT Respiratory Rate 13 03/01/2021 10:10 AM CDT Oxygen Saturation 95% 03/01/2021 10:10 AM CDT Inhaled Oxygen Concentration - - Weight 105 kg (232 lb 5.8 oz) 03/01/2021 7:54 AM CDT Height 174.3 cm (5' 8.62) 03/01/2021 7:54 AM CDT Body Mass Index 34.69 03/01/2021 7:54 AM CDT documented in this encounter Discharge Instructions Discharge InstructionsKatya cooper Delmi Guevara. - 03/01/2021 7:44 AM CDT Images from the original note were [...] concerns, please contact Dr. Artur Barnhart, Mon- Sat 8-5 at [phone] [facility] Capsule Maker, (after business hours, and ask for the safety professional eye doctor) Please bring all of your [...] 0 0 02/07/2021 DR capsule mouth daily. simvastatin (ZOCOR) 10 mg Take 1 tablet by 0 01/19 tablet mouth daily. liraglutide (Victoza 2-Yunior) Inject 1.2 mg 0 05/04 0.6 mg/0.1 mL (18 mg/3 mL) under the skin at injection bedtime. sildenafiL (VIAGRA) 100 mg Take 1 tablet by 0 03/2021 tablet mouth daily as needed. vardenafiL (Levitra) 20 mg Take 1 tablet by 0 10/2014 tablet mouth as directed. moxifloxacin (VIGAMOX) 0.5 % 1 drop to 3 mL 1 02/20/ 021 03/08/2021 ophthalmic solution operated eye 4 times per day for 1 week, starting the day before surgery prednisoLONE acetate (PRED After surgery, 1 10 mL 3 08/202006/13/2021 FORTE) 1 % ophthalmic drop to operated suspension eye 4x/day and then as directed by your physician documented as of this encounter OR Notes Op Note - Artur Barnhart M.D. 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 - 03/03/2021 12:24 PM CDT I have reviewed the final pathology report and the identified diagnosis is consistent with the patient's clinical presentation. documented in this encounter Plan of Treatment Not on filedocumented as of this encounter Procedures Procedure Name Priority Date/Time Associated Diagnosis Comme nts SURGICAL PATHOLOGY Routine 03/01/2021 9:09 AM Endothelial Garnett eal Results for this CDT Dystrophy Left Eye procedure are in the results section. FUNGAL CULTURE, Routine 03/01/2021 9:08 AM Endothelial Corneal Results for this ROUTINE CDT Dystrophy Left Eye procedure are in the results section. KERATOPLASTY DESCEMET 03/01/2021 8:56 AM Endothelial C orneal MEMBRANE ENDOTHELIUM CDT Dystrophy Left Eye documented in this encounter Results Surgical Pathology (03/01/2021 9:09 AM CDT) Component Value Ref Test Analysis Performed Pathologis t Range Method Time At Signature 03/03/2021 DTL 12:10 PM CDT Report Beba Antony M.D. [id number] 03/03/2021 DTL electronically 12:10 PM signed by CDT I verify that I have examined all relevant slides/materials for the specimen(s) and rendered or confirmed the diagnosis. Gross Description A. ?Received ??in formalin labeled with the p atient's 03/03/2021 DTL name, patient number and as left Descemet's membrane is a 12:10 PM 7.0 x 7.0 x 0.2 mm clear membranous tissue without CDT pigmentation. ??The specimen is inked yellow and submitted entirely in block A1. Grossed by [facility]. 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 Diagnostic impression based on morphologic features observed on H&E and PAS stained sections (PAS stained blocks A1). Specimen (Source) Anatomical Collection Method Collection Time Re ceived Time Location / / Volume Laterality Tissue (Eye, 03/01/2021 9:09 AM Left) CDT Narrative This result has an attachment that is no t available. Artur Barnhart M.D. LAB SURG PATH ORDERABLES Performing Organization Address [facility] Phon e Number [facility] [address] Fungal Culture, Routine (03/01/2021 9:08 AM CDT) [facility] gist Method Time Signature Fungal No growth 03/25/2021 DTL Culture, after 24 1:01 PM CDT Routine days of incubation. Specimen (Source) Anatomical Collection Method Collection Time Re ceived Time Location / / Volume Laterality Tissue (Cornea, 03/01/2021 9:08 AM Donor) CDT Artur Barnhart M.D. LAB MICROBIOLOGY - GENERAL O RDERABLES Performing Organization Address [facility] Phon e Number [facility] - [id number] [place] [address] documented in this encounter Visit Diagnoses Diagnosis Endothelial Corneal Dystrophy Left Eye - Primary Endothelial Corneal Dystrophy Left Eye documented in this encounter Admitting Diagnoses Diagnosis Endothelial Corneal Dystrophy Left Eye documented in this encounter Administered Medications Inactive Administered Medications - up to 3 most recent administrations Medication Order MAR Action Action Date Dose Rate Site acetylcholine intraocular Given 03/01/2021 9:22 AM CDT 0.3 mL Left Eye injection (MIOCHOL-E) As needed, Starting on Sat03/01/21 at 0922, Intra-Op balanced salt solution plus ophthalmic Given 03/01/2021 9:29 AM CDT 500 mL Left Eye irrigation (BSS PLUS) As needed, Starting on Sat03/01/21 at 0928, Intra-Op Given 03/01/2021 9:28 AM CDT 45 mL Left Eye ceFAZolin subconjunctival 25 mg (ANCEF) Given 03/01/2021 9:50 AM CDT 25 mg Left Eye 25 mg, subconjunctival, Once in surgery, OR use only, Starting on Sat03/01/21 at 0812, For 1 dose, Intra-Op, SUBCONJUNCTIVAL Use Only. Amount Dispensed Exceeds Dose. 5 mL vial. dexAMETHasone injection (DECADRON) Given 03/01/2021 9:49 AM CDT 2 mg Left Eye As needed, Starting on Sat03/01/21 at 0949, Intra-Op dexAMETHasone injection 2 mg (DECADRON) 2 mg, subconjunctival, Once in surgery, OR use only, S tarting on Sat03/01/21 at 0812, For 1 dose, Intra-Op fentaNYL injection 25 mcg (SUBLIMAZE) Given 03/01/2021 9:15 AM CDT 25 mcg 25 mcg, intravenous, Every 2 min PRN, sedation, or pain before and during sedation procedure, Starting on Sat03/01/21 at 0746, Administer over 1 minute immediately prior to the procedure. May repeat every 2 minutes to a maximum of 200 mcg, until pain score of 3 or less, or until the patient meets the pain comfort goal. Do not give if respiratory rate is less than 8 breaths/minute lactated ringers New Bag 03/01/2021 8:15 AM CDT 20 mL/hr 20 mL/hr 20 mL/hr, intravenous, Continuous, Starting on Sat03/01/21 at 0800 wkdrmewjb-jnlhkkluidp-xqwnhzshbdkoe human Given 03/01/2021 9:16 AM 4 mL Left Eye recombinant (Ophthalmic Block Solution #2) CDT 9.5 mg-2.4 mg-7.5 Units/mL 12 mL 12 mL, ophthalmic, Once in surgery, OR use only, Starting on Sat03/01/21 at 0812, For 1 dose, Intra-Op midazolam (PF) injection 0.5 mg (VERSED) Given 03/01/2021 9:15 AM CDT 0.5 mg 0.5 mg, intravenous, Every 2 min PRN, sedation, Starting on Sat03/01/21 at 0746, If RASS greater than -3, give additional dose(s) of 0.5 mg IV every 2 minutes for a maximum of 5 mg. Do not give if respiratory rate is less than 8 breaths/minute. neomycin-polymyxin B-dexameth Given 03/01/2021 9:51 AM CDT 1 humberto lication Left Eye ophthalmic ointment (MAXITROL) As needed, Starting on Sat03/01/21 at 0951, Intra-Op povidone-iodine 10 % external solution Given 03/01/2021 9:17 AM CDT 5 mL (BETADINE) As needed, Starting on Sat03/01/21 at 0917, Intra-Op povidone-iodine 5 % ophthalmic Given 03/01/2021 9:[address] Left Eye solution (BETADINE) As needed, Starting on Sat03/01/21 at 0913, Intra-Op proparacaine 0.5 % ophthalmic Given 03/01/2021 9:13 AM CDT 2 tutu ps Left Eye solution (ALCAINE) As needed, Starting on Sat03/01/21 at 0913, Intra-Op sodium chloride 0.9 % injection 10 mL 10 mL, intravenous, As needed, line care , Starting on Sat03/01/21 at 0743, Pre-Op, Peripheral Intravenous Catheter and Rapid Infusion Cat heter, prior to blood sampling, post blood transfusion or post blood samplin g sodium chloride 0.9 % injection 3 mL 3 mL, intravenous, As needed, line care, Starting on Sat03/01/21 at 0743, Pre-Op, Prior to and following infusion and betw een multiple consecutive infusions: sodium chloride 0.9 % injection sodium chloride 0.9 % injection 3 mL 3 mL, intravenous, Every 12 hours scheduled, First dos e on Sat03/01/21 at 0900, Pre-Op, Peripheral Intravenous Catheter and Rapid Infu andry Catheter, when no infusion to maintain patency documented in this encounter Active and Recently Administered Medications Times are shown in CDT. Scheduled Medication Order 02/27/2021 02/28/2021 03/01/2021 sodium chloride 0.9 % injection 3 mL 0900 (Due) 3 mL, intravenous, Every 12 hours schedu led, First dose on Sat03/01/21 at 0900, Pre-Op, Peripheral Intravenous Catheter and Rapid Infusion Catheter, when no infusion to maintain patency Continuous Medication Order 02/27/2021 02/28/2021 03/01/2021 lactated ringers 0815 (New Bag - Provider: Katya Gutierrez R.N.)1044 (Stopped - Provider: Katya Gutierrez R.N.) 20 mL/hr, intravenous, Continuous, Starting on Sat03/01/21 at 08 00 PRN Medication Order 02/27/2021 02/28/2021 03/01/2021 acetylcholine intraocular injection (MIOCHOL-E) (CANCELED) 921 (Given - Provider: Artur Barnhart M.D.) As needed, Starting on Sat03/01/21 at 0922, Intra-Op balanced salt solution plus ophthalmic irrigation (BSS PLUS) (CA NCELED) 927 (Given - Provider: Artur Barnhart M.D.)09 (Given - Provider: Artur Barnhart M.D.) As needed, Starting on Sat03/01/21 at 0928, Intra-Op ceFAZolin subconjunctival 25 mg (ANCEF) (COMPLETED) 0950 (Given - Provider: Artur Barnhart M.D.) 25 mg, subconjunctival, Once in surgery, OR use only, Starting on Sat03/01/21 at 0812, For 1 dose, Intra-Op, SUBCONJUNCTIVAL Use Only. Amount Dispensed Exceeds Dose. 5 mL vial. dexAMETHasone injection (DECADRON) (CANCELED) 948 (Given - Provider: Artur Barnhart M.D.) As needed, Starting on Sat03/01/21 at 0949, Intra-Op dexAMETHasone injection 2 mg (DECADRON) 2 mg, subconjunctival, Once in surgery, OR use only, Starting on Sat03/01/21 at 0812, For 1 dose, Intra-Op fentaNYL injection 25 mcg (SUBLIMAZE) 914 (Given - Provider: Maricruz Fajardo R.N.) 25 mcg, intravenous, Every 2 min PRN, se dation, or pain before and during sedation procedure, Starting on Sat03/01/21 at 0746, Administer over 1 minute immediately prior to the procedure. May repeat emir ry 2 minutes to a maximum of 200 mcg, un til pain score of 3 or less, or until the patient meets the pain comfort goal. Do not give if respiratory rate is less than 8 breaths/minute flumazeniL injection 0.2 mg (ROMAZICON) 0.2 mg, intravenous, Once as needed, rev ersal, Starting on Sat03/01/21 at 0746, For 1 dose, Administer once if patient has a RASS score of -4, -5 and has a respiratory rate less than 8 breaths/minute. aiwvxkjlk-kucvukkizrw-pwnxqueugozjs debra n recombinant (Ophthalmic Block Solution #2) 9.5 mg-2.4 mg-7.5 Units/mL 12 mL (COMPLETED) 0916 (Given - Provider: Artur Barnhart M.D.) 12 mL, ophthalmic, Once in surgery, OR u se only, Starting on Sat03/01/21 at 0812, For 1 dose, Intra-Op midazolam (PF) injection 0.5 mg (VERSED) 0915 (Given - Provider: Maricruz Fajardo R.N.) 0.5 mg, intravenous, Every 2 min PRN, se dation, Starting on Sat03/01/21 at 0746, If RASS greater than -3, give additional dose(s) of 0.5 mg IV every 2 minutes for a maximum of 5 mg. Do not give if respiratory rate is less than 8 breaths/minute. midazolam (PF) injection 1 mg (VERSED) 1 mg, intravenous, Once as needed, sedat ion, Starting on Sat03/01/21 at 0746, For 1 dose naloxone injection 0.2 mg (NARCAN) 0.2 mg, intravenous, Once as needed, res piratory depression, Starting on Sat03/01/21 at 0746, For 1 dose, Administer once if patient has a RASS score of -4, -5 and has a respiratory rate less than 8 breaths/minute. neomycin-polymyxin B-dexameth ophthalmic ointment (MAXITROL) (CA NCELED) 0951 (Given - Provider: Artur Barnhart M.D.) As needed, Starting on Sat03/01/21 at 0951, Intra-Op ondansetron (PF) injection 4 mg (ZOFRAN) 4 mg, intravenous, Once as needed, nause a, vomiting, Starting on Sat03/01/21 at 0746, For 1 dose povidone-iodine 10 % external solution (BETADINE) (CANCELED) 0917 (Given - Provider: Vita Dumont R.N.) As needed, Starting on Sat03/01/21 at 0917, Intra-Op povidone-iodine 5 % ophthalmic solution (BETADINE) (CANCELED) 09 (Given - Provider: Artur Barnhart M.D.) As needed, Starting on Sat03/01/21 at 0913, Intra-Op proparacaine 0.5 % ophthalmic solution (ALCAINE) (CANCELED) 09 (Given - Provider: Artur Barnhart M.D.) As needed, Starting on Sat03/01/21 at 0913, Intra-Op sodium chloride 0.9 % injection 10 mL 10 mL, intravenous, As needed, line care , Starting on Sat03/01/21 at 0743, Pre- Op, Peripheral Intravenous Catheter and Rapid Infusion Catheter, prior to blood sampling, post blood transfusion or post blood sampling sodium chloride 0.9 % injection 3 mL 3 mL, intravenous, As needed, line care, Starting on Sat03/01/21 at 0743, Pre- Op, Prior to and following infusion and between multiple consecutive infusions: sodium chloride 0.9 % injection documented in this encounter Care Teams Behavioral Health Specialist Relationship Specialty Start Date End Date Elsewhere, Pcp PCP - General Family Medicine 03/01/21 documented as of this encounter
--- OUTSIDE RECORDS SUMMARY | 2022-03-19 13:31 | XMS_ITS | Encounter Summary ---
:1940 Author Organization [facility] Address [address] [place] [address] Care Team Providers Name Role Phone Unavailable Primary Care Provider Unavailable Reason for Visit Reason Comments Referral Encounter Details Date Type Department Care Team Description 01/19/2021 Clinical Communication Department of Artur Barnhart Ophthalmology allen Dinh M.D. [place], [place] [address] [facility] [address] [place] [phone] Social History Tobacco Use Types Packs/Day Years Used Date Smoking Tobacco: Unknown Sex Assigned at Date Recorded Not on file documented as of this encounter Miscellaneous Notes Telephone Encounter - Danya [place] - 01/19/2021 11:51 AM CDT Referral from Dr. Solano's office for Dr. Barnhart. Records received. Please have provider review. Thanks! documented in this encounter Plan of Treatment Not on filedocumented as of this encounter Visit Diagnoses Not on filedocumented in this encounter
--- OUTSIDE RECORDS SUMMARY | 2022-03-19 13:31 | XMS_ITS | Encounter Summary ---
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 Dystrophy Left Eye [place] [address] [facility] [address] [place] [id number] [phone] Social History Tobacco Use Types Packs/Day Years Used Date Smoking Tobacco: Unknown Sex Assigned at Date Recorded Not on file documented as of this encounter Last Filed Vital Signs Vital Sign Reading Time Taken Comments Blood Pressure 101/86 03/01/2021 10:45 AM CDT Pulse 48 03/01/2021 10:45 AM CDT Temperature 36.8 ??C (98.2 ??F) 03/01/2021 8:07 AM CDT Respiratory Rate 16 03/01/2021 10:45 AM CDT Oxygen Saturation 94% 03/01/2021 10:45 AM CDT Inhaled Oxygen Concentration - - Weight 105 kg (232 lb 5.8 oz) 03/01/2021 7:54 AM CDT Height 174.3 cm (5' 8.62) 03/01/2021 7:54 AM CDT Body Mass Index 34.69 03/01/2021 7:54 AM CDT documented in this encounter Discharge Instructions Discharge InstructionsKatya Gutierrez R.N. - 03/01/2021 7:44 AM CDT Images from [...] Dr. Artur Barnhart, Sat- Sat 8-5 at [phone] [facility] Gym Teacher, (after business hours, and ask for the site damage prevention technician eye doctor) Please bring all of your [...] Fuchs Endothelial Corneal Dystrophy Left Eye A research program assistant actively participated and was necessary for [...] SURGICAL PATHOLOGY Routine 03/01/2021 9:09 AM Endothelial [place] eal Results for this CDT Dystrophy Left [...] 12:10 PM CDT Report Beba Antony M.D. [id number] 03/03/2021 DTL electronically 12:10 PM signed by [...] submitted entirely in block A1. Grossed by [facility]. Interpretation FINAL DIAGNOSIS 03/03/2021 DTL Cornea, left [...] LAB SURG PATH ORDERABLES Performing Organization Address [facility] Phon e Number [facility] [address] Fungal Culture, Routine (03/01/2021 9:08 AM CDT) [facility] gist Method Time Signature Fungal No growth 03/25/2021 DTL Culture, after 24 1:01 PM CDT Routine days of incubation. Specimen (Source) Anatomical Collection Method Collection Time Re ceived Time Location / / Volume Laterality Tissue (Cornea, 03/01/2021 9:08 AM Donor) CDT Artur Barnhart M.D. LAB MICROBIOLOGY - GENERAL O RDERABLES Performing Organization Address [facility] Phon e Number [facility] [id number] [place] [address] documented in this encounter Visit Diagnoses Diagnosis Endothelial Corneal Dystrophy Left Eye - Primary documented in this encounter Admitting Diagnoses Diagnosis Endothelial Corneal Dystrophy Left Eye documented in this encounter Administered Medications Inactive Administered Medications - up to 3 most recent administrations Medication Order MAR Action Action Date Dose Rate Site dexAMETHasone injection 2 mg (DECADRON) 2 mg, [...] intravenous, Continuous, Starting on Sat03/01/21 at 0800 midazolam (PF) injection 0.5 mg (VERSED) Given [...] 0815 (New Bag - Provider: Katya Gutierrez RRafNRaf)1044 (Stopped - Provider: Katya Gutierrez R.N.) 20 mL/hr, intravenous, Continuous, Starting on Sat03/01/21 at 08 00 PRN Medication Order 02/27/2021 02/28/2021 03/01/2021 acetylcholine intraocular injection (MIOCHOL-E) (CANCELED) 921 (Given - Provider: Artur Barnhart M.D.) As needed, Starting on Sat03/01/21 at 0922, Intra-Op balanced salt solution plus ophthalmic irrigation (BSS PLUS) (CA NCELED) 28 (Given - Provider: Artur Barnhart M.D.)09 (Given [...] 5 mL vial. dexAMETHasone injection (DECADRON) (CANCELED) 49 (Given - Provider: Artur Barnhart M.D.) As [...] a respiratory rate less than 8 breaths/minute. jokumywrt-mhsfvseoadh-crumbmupmbunb debra n recombinant (Ophthalmic Block Solution #2) 9.5 mg-2.4 mg-7.5 Units/mL 12 mL (COMPLETED) 16 (Given - Provider: Artur Barnhart M.D.) 12 mL, ophthalmic, Once in surgery, OR u se only, Starting on Sat03/01/21 at 0812, For 1 dose, Intra-Op midazolam (PF) injection 0.5 mg (VERSED) 15 (Given - Provider: Maricruz Fajardo R.N.) 0.5 [...] neomycin-polymyxin B-dexameth ophthalmic ointment (MAXITROL) (CA NCELED) 51 (Given - Provider: Artur Barnhart M.D.) As needed, Starting on Sat03/01/21 at 0951, Intra-Op ondansetron (PF) injection 4 mg (ZOFRAN) 4 mg, intravenous, Once as needed, nause a, vomiting, Starting on Sat03/01/21 at 0746, For 1 dose povidone-iodine 10 % external solution (BETADINE) (CANCELED) 916 (Given - Provider: Vita Dumont R.N.) As needed, Starting on Sat03/01/21 at 0917, Intra-Op povidone-iodine 5 % ophthalmic solution (BETADINE) (CANCELED) 912 (Given - Provider: Artur Barnhart M.D.) As needed, Starting on Sat03/01/21 at 0913, Intra-Op proparacaine 0.5 % ophthalmic solution (ALCAINE) (CANCELED) 912 (Given - Provider: Artur Barnhart M.D.) As [...] injection documented in this encounter Care Teams [place] Relationship Specialty Start Date End Date Elsewhere, Pcp PCP - General Family Medicine 03/01/21 documented as of this encounter
[2022-03-19 13:50] LABS: Eosinophils Percent Auto 0.2 % (0.0-7.0); Hematocrit 40.1 % (37.0-53.0); Hemoglobin* 13.2 gm/dL (13.5-17.5); Immature Granulocytes Abs Auto 0.03 K/uL (0.00-0.30); Lymphocytes Percent Auto 10.3 % (20-44); Mean Corpuscular HGB Conc 33 gm/dL (32-36); Mean Corpuscular Hemoglobin 31 pg (26-34); Mean Corpuscular Volume 96 fL (80-100); Monocytes Percent Auto 3.8 % (0.0-11.0); Neutrophils Percent Auto 85.5 % (42.0-72.0); Platelet Count* 129 K/uL (140-440); White Blood Count* 12.29 K/uL (4.50-11.00)
[2022-03-19 13:52] LABS: Slide Review Reflex No
[2022-03-19 14:01] LABS: Chloride* 96 mmol/L (96-114); Potassium* 5.3 mmol/L (3.6-5.1); Sodium* 135 mmol/L (135-149)
[2022-03-19 14:04] LABS: Carbon Dioxide* 33 mmol/L (20-32); Creatinine* 1.5 mg/dL (0.5-1.5); Est. Creatinine Clearance* 37.97; Estimated Glomerular Filt Rate 46 ml/min
[2022-03-19 14:05] LABS: Blood Urea Nitrogen* 41 mg/dL (7-30); Calcium* 9.2 mg/dL (8.4-10.6); Glucose* 202 mg/dL (60-115)
[2022-03-19 14:49] VITALS: BP 144/71; PULSE 63; RESP 18; TEMP 36.3; O2SAT 98
[2022-03-19 15:07] VITALS: BP 144/71; PULSE 63; RESP 18; TEMP 36.3
== END 2022-03-19 15:15 | disposition home or self-care (01) ==
PROVIDERS: Emergency Provider Student in an Organized Health Care Education/Training Program; PCP Family Medicine
DX: R60.0 Localized edema (principal); L60.0 Ingrowing nail; E11.9 Type 2 diabetes mellitus without complications; Z79.4 Long term (current) use of insulin; Z79.52 Long term (current) use of systemic steroids
CPT/HCPCS: 11730; 36415; 80048; 85025; 93970; 99283; 99284

== ENCOUNTER 2023-04-30 14:09 | Outpatient (CLI) | payer OTHER, SELFPAY ==
--- NOTE | 2023-04-30 14:30 | CRLHL7_ITS ---
For Patients: As a result of the Century Cures Act, medical imaging exams and procedure reports are released immediately into your electronic medical record. You may view this report before your referring provider. If you have questions, please contact your health care provider. INDICATION: Left-sided visual field defect. TECHNIQUE: Brain MRI with contrast. Pituitary protocol. The following sequences were obtained: DWI and ADC mapping sequences. Axial FLAIR and T2 weighted sequences. Coronal T2 weighted sequence of the sellar region. Coronal and sagittal thin-section T1 weighted pre-contrast and post-contrast sequences of the sellar region. T1 weighted sequence of the whole brain. 15 cc of Dotarem gadolinium based intravenous contrast agent was used. COMPARISON: None. FINDINGS: Small cystic nonenhancing foci along the superior lateral margins of the pituitary gland bilaterally, series 7, image 11 and series 9, image 12. The neurohypophysis demonstrates normal T1 shortening. Pituitary infundibulum is midline and normal in appearance. The cavernous sinuses and Meckel`s caves are normal in appearance. The suprasellar cistern, hypothalamus and optic chiasm are all normal in appearance. All the major intracranial vascular structures demonstrate normal flow-related signal voids and intraluminal enhancement. Sphenoid sinus demonstrates subsellar pneumatization. No acute infarct or hemorrhage. No mass or pathologic intracranial enhancement. Scattered FLAIR hyperintensities within the supratentorial white matter, typical for chronic microvascular ischemic change. No mass effect or herniation. No hydrocephalus or extra-axial collections. Posterior fossa is normal. All the major intracranial vascular structures demonstrate normal flow-related signal. The orbital contents are normal. No calvarial or skull base marrow signal abnormality. No obstructive sinus disease. No extracranial soft tissue findings. IMPRESSION: 1. Small cystic foci along the superior lateral margins of the pituitary gland bilaterally. Indeterminate but likely benign and not clinically significant. No other pituitary lesions. No suprasellar mass effect/optic chiasm impingement. 2. No acute ischemia or other acute intracranial pathology. 3. No mass or pathologic intracranial enhancement. 4. Mild chronic microvascular ischemic changes. Dictated by Alphonse Brenner MD @ 05/01/2023 2:38:38 PM (Electronically Signed)
--- NOTE | 2023-04-30 15:30 | CRLHL7_ITS ---
For Patients: As a result of the Century Cures Act, medical imaging exams and procedure reports are released immediately into your electronic medical record. You may view this report before your referring provider. If you have questions, please contact your health care provider. INDICATION: Left-sided visual field defect. TECHNIQUE: Orbits MRI with contrast. The following sequences were obtained: Thin section T1 precontrast/postcontrast and T2 STIR sequences of the orbits in coronal and axial plane. 15 cc of Dotarem gadolinium based contrast agent was administered. COMPARISON: None. FINDINGS: The ocular globes are normal in size and signal intensity. Bilateral pseudophakia. No cupping of the optic disc. No pathologic intra-ocular enhancement. Extraocular muscles are normal in size and appearance. No retrobulbar intraconal or extraconal mass. Lacrimal glands are normal in appearance. The orbital apices are normal in appearance. The intraorbital and intracranial prechiasmatic optic nerves, optic chiasm, optic tracts and cerebral portions of the optic pathways are normal in appearance, with no signal abnormality or pathologic enhancement. No optic nerve atrophy. IMPRESSION: 1. No significant abnormalities involving the orbits/visual pathways. Dictated by Alphonse Brenner MD @ 05/01/2023 3:00:59 PM (Electronically Signed)
== END 2023-04-30 14:10 | disposition home or self-care (01) ==
LOC: MRI 14:10
PROVIDERS: PCP Family Medicine; Visit Provider Ophthalmology
DX: H53.40 Unspecified visual field defects (principal); I67.82 Cerebral ischemia
CPT/HCPCS: 70543; 70553; A9575

== ENCOUNTER 2023-05-29 10:30 | Outpatient (RCR) | payer OTHER, SELFPAY | END 2023-07-18 13:38 | disposition home or self-care (01) | PROVIDERS: PCP Family Medicine; Visit Provider Family Medicine | DX: M25.551 Pain in right hip (principal); Z51.89 Encounter for other specified aftercare | CPT/HCPCS: 97110; 97140; 97163 ==

== ENCOUNTER 2024-12-21 09:25 | Emergency (ER) | payer OTHER, SELFPAY ==
--- OUTSIDE RECORDS SUMMARY | 2024-12-21 09:28 | XMS_ITS | Clinical Summary ---
Author Organization [facility] Address [address] [place] [id number] Care Team Providers Care Fabric Stretcher Name Role Phone Votel, Ryan Quesada MD Primary Care Provider + Allergies Active Allergy Reactions Criticality Noted Date Comments Cyclobenzaprine Thrush 02/13/2022 Lisinopril Hyperkalemia 04/16/2013 Medications ASPIRIN 81 MG TAB Once daily 0 007 Active ACCU-CHEK MULTICLIX LANCET use as directed 102 prn 009 Active ACCU-CHEK YOSHI MONITORING KITIndications:D iabetes mellitus type II use to monitor diabetes. 1 0 009 Active Needle, Disp, 30 G 30 gauge x 1/2 ndleIndications: Type 2 diabetes mellitus with stage 3 chronic kidney disease, without long-term current use of insulin (HC) As directed. 100 Each 022 Active Prodigy No Coding stripIndications :Type 2 diabetes mellitus with stage 3 chronic kidney disease, without long-term current use of insulin, unspecified whether stage 3a or 3b CKD (HC) Dispense item covered by pt ins. 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 Reason: High A1C, insulin start. 200 Each 022 Active fluorometholone (FML) 0.1 % ophthalmic suspension PLACE ONE DROP INTO EACH EYE EVERY OTHER DAY (SATURDAY, SATURDAY, SATURDAY) 023 Active diosmin complex no.1 (Vasculera) 630 mg tabIndications:V enous insufficiency Take by mouth once daily. 0 023 Active omeprazole (PRILOSEC) 20 mg Delayed-Release capsuleIndicatio ns:Laryngopharyn geal reflux (LPR) TAKE 1 CAPSULE DAILY BEFORE A MEAL 90 Capsule 3 024 Active glipiZIDE extended-release (GLUCOTROL XL) 10 mg Extended-Release tabletIndication s:Type 2 diabetes mellitus with stage 3 chronic kidney disease, without long-term current use of insulin, unspecified whether stage 3a or 3b CKD (HC) TAKE 1 TABLET ONCE DAILY BEFORE A MEAL 90 Tablet 2 024 Active semaglutide (Ozempic) 2 mg/3 mL subcutaneous penIndications:T ype 2 diabetes mellitus with stage 3 chronic kidney disease, without long-term current use of insulin, unspecified whether stage 3a or 3b CKD (HC) Inject 0.5 mg subcutaneous once weekly. 9 mL 3 024 Active atenoloL 50 mg tabletIndication s:Essential hypertension TAKE 1 TABLET ONE TIME DAILY 90 Tablet 2 025 Active insulin glargine (U-100) (Lantus Solostar U-100 Insulin) 100 unit/mL (3 mL) penIndications:T ype 2 diabetes mellitus with stage 3 chronic kidney disease, without long-term current use of insulin, unspecified whether stage 3a or 3b CKD (HC) INJECT 62 UNITS UNDER THE SKIN AT BEDTIME 90 mL 025 Active losartan 25 mg tabletIndication s:HTN (hypertension) TAKE 1 TABLET ONE TIME DAILY 90 Tablet 2 025 Active simvastatin 10 mg tabletIndication s:Hyperlipidemia LDL goal <100 TAKE 1 TABLET AT BEDTIME 90 Tablet 1 025 Active hydroCHLOROthiaz hunter 50 mg tabletIndication s:HTN (hypertension) TAKE 1 TABLET EVERY DAY 90 Tablet 1 025 Active antiox #8/om3/dha/epa/l ut/zeax (PRESERVISION AREDS 2 (OMEGA-3) ORAL) Take by mouth. Active gabapentin 100 mg capsuleIndicatio ns:Peripheral sensory neuropathy Take 1 Capsule (100 mg) by mouth two times daily. 180 Capsule 3 025 Active spironolactone 25 mg tabletIndication s:Peripheral sensory neuropathy Take 1 Tablet (25 mg) by mouth once daily. 90 Tablet 3 025 Active azaTHIOprine 50 mg tabletIndication s:Temporal arteritis (HC) Take 3 Tablets (150 mg) by mouth once daily in the morning. 270 Tablet 3 025 Active CPAPIndications: JEAN CARLOS (obstructive sleep apnea) RESMED CPAP (E0601) machine for home use at pressure: 13.6 cmw, Choice of mask (A7030 or A7034) w/full face cushion (A7031) x1/mo, nasal cushion (A7032) x2/mo, or nasal pillows (A7033) x 2/mo; Length of Need: 99 months; Frequency of use: Daily 1 Each 025 Active azaTHIOprine (IMURAN) 50 mg tabletIndication s:Temporal arteritis (HC) Take 3 Tablets (150 mg) by mouth every morning. 0 023 2024 Discontinued(R eorder (E-cancel not sent)) simvastatin (ZOCOR) 10 mg tabletIndication s:Hyperlipidemia LDL goal <100 Take 1 Tablet (10 mg) by mouth at bedtime. 90 Tablet 3 024 2024 Discontinued hydroCHLOROthiaz hunter 50 mg tabletIndication s:HTN (hypertension) TAKE 1 TABLET EVERY DAY 90 Tablet 1 024 2024 Discontinued codeine-guaiFENe sin 10-100 mg/5 mL liquidIndication s:Pneumonia of right lower lobe due to infectious organism Take 5 mL by mouth every 6 hours if needed for Cough. 100 mL 025 2024 Discontinued(* Med complete/Regim en complete/Level of care change) CPAPIndications: JEAN CARLOS (obstructive sleep apnea) RESMED CPAP (E0601) machine for home use at pressure: 13.6 cmw, Choice of mask (A7030 or A7034) w/full face cushion (A7031) x1/mo, nasal cushion (A7032) x2/mo, or nasal pillows (A7033) x 2/mo; Length of Need: 99 months; Frequency of use: Daily 1 Each 11 025 2024 Discontinued(* Med complete/Regim en complete/Level of care change) gabapentin 100 mg capsule 03/26/2 025 2024 Discontinued(* Medication adjustment) spironolactone 25 mg tablet 025 2024 Discontinued(* Medication adjustment) Active Problems Problem Noted Date Diagnosed Date Chronic kidney disease, stage 4 (severe) 024 Hypertensive heart disease with heart failure Encounter for aftercare following other organ tr ansplant 05/22/2021 Overview (09/09/2023): Added automatically from request for surgery [id number] Endothelial corneal dystrophy, left eye 02/21/20 Overview (09/09/2023): eye's Added automatically from request for surgery [id number] JEAN CARLOS 02/08/2007 AHI-55 08/19/2017 HTN (hypertension) 12/14/2015 Type 2 diabetes mellitus wit h stage 3 chronic kidney disease, without long-term current use of insulin 06/07/2015 CKD (chronic kidney disease) stage 3, GFR 30-59 ml/min 11/14/2010 Colon polyps 12/29/2009 Overview (06/24/2018): Colonoscopy 12/2009 polyps repeat in 3 years Colonoscopy 11/2012 diverticulosis repeat in 5 years Colonoscopy 06/2018 normal, repeat in 5 years Unspecified sleep apnea 02/06/2007 Overview (02/06/2007): 01/09/2007, AHI-55.5, CPAP Thyroid nodule Overview (09/17/2011): benign colloid Resolved Problems Problem Noted Date Diagnosed Date Resolved Date Temporal arteritis 02/21/2022 CKD (chronic kidney disease) stage 3, GFR 30-59 ml/min 11/14/2010 11/14/2010 Encounters Date Type Department Care Team Description 12/21/2024 Nurse Triage [facility] [address], [place] [id number] Ryan Barreto MD Back Pain 12/15/2024 9:30 AM CDT Office Visit [facility] [address] [place] [address] MD Sleep Consult 12/15/2024 Travel 12/14/2024 Orders Only [facility] Scanner 1 scan: (1-Ord) RM, COMPLIANCE REPORT, 12/14/2024 12/10/2024 10:25 AM CDT Office Visit [facility] [address] [place] [address] Ryan Barreto MD Lab; Diabetes 12/10/2024 Travel 11/22/2024 Refill [facility] [address] [place] [address] Ryan Barreto MD Refill Request (Simvastatin, Hydrochlorothiazide) 11/04/2024 Refill [facility] [address] [place] [address] Ryan Barreto MD Refill Request (Losartan) 10/14/2024 Refill [facility] [address] [place] [address] Ryan Barreto MD Refill Request (Atenolol, Lantus Solostar U-100 Insulin) from Last 3 Months Immunizations Immunization Administration Dates Next Due AMB Influenza, IIV3 (Age >=3 years)(Flu Clinic Only) 05/17/2008 AMB Influenza, IIV4 PF (=>6 mos Flulaval,Fluzone Fluarix)(Flu Clinic Only) 04/30/2013 Amb Influenza, Inact (High-d ose) (Flu Clinic Only) 04/21/2014 COVID-19 VACCINE SPIKEVAX (M ODERNA 50MCG/0.5ML) 12YO+ PFS 05/01/2023 COVID-19 vaccine (Moderna 100mcg/0.5mL) PF, MDV 10/07/2020,09/09/2020 COVID-19 vaccine (Pfizer-Bio NTech 30mcg/0.3mL) 12YO+ MECHE-SUCROSE PFMDV 11/06/2021 Hepatitis A (Adult) 08/08/2006 INFLUENZA, IIV3 PF (AGE >= 6 MO) 04/17/2015,03/23 Inactivated Polio Vaccine 08/15/2006 Influenza A (H1N1), Inactiva eleno (Age >=3 Years) 07/29/2009 Influenza Virus, Unspecified 03/25/2020,04/03/20 18 Influenza, High-dose Inactivated 04/30/2018,04/21 Influenza, High-dose Quadriv alent Inactivated 04/26/2021 Influenza, IIV3 (Age 6-35 mos) 03/25/2020 Influenza, IIV3 (Age >=3 years) 04/18/20 15,04/03/2012,04/16/2011,05/22,05/02/2007 Influenza, Inactivated AIIV4 (Age 65+ Years) Preserv Free 04/09/2023,03/28/2022 Influenza, Inactivated IIV3 (Age 65+ Years) Preserv Free 04/07/2019,05/15/2017 Pneumococcal Conj 20-valent (Prevnar 20) 06/14/2023 Pneumococcal Poly,23-Valent (Pneumovax) 08/08/2006 Pneumococcal conj 13-Valent (Prevnar 13) 12/21/2015 RSV, Recombinant ADJ Reconst ituted (Arexvy 120MCG/0.5mL) 06/14/2023 Td (Age >=7 Years) 09/02/2002 Tdap 09/24/2022,04/24/2012 Typhoid (injectable) 08/08/2006 Zoster (Shingrix-RZV, recombinant) 06/03/2018, Zoster (Zostavax-ZVL, live) 04/24/2012 Family History Medical History Relation Name Comments Cancer Father lung-smoker Heart Disease Mother NM Hypertension Mother Diabetes Paternal Grandmother Diabetes Sister Relation Name Status Comments Father Mother Paternal Grandmother Sister Social History Tobacco Use Types Packs/Day Years Used Date Smoking Tobacco: Former Cigarettes 1 10 Smokeless Tobacco: Never Tobacco Cessation:Counseling Given: Yes Comments:smoked cigars and cigarettes years ago Alcohol Use Standard Drinks/Week Comments Yes 7 (1 standard drink = 0.6 oz pur e alcohol) cocktail/evening PHQ-2 Answer Date Recorded PHQ-2 TOTAL SCORE 0 12/25/2023 Social Connections Answer Date Recorded Do you often feel lonely or isolated from those around you? 0 08/03/2024 Financial Resource Strain Answer Date R ecorded Difficulty of Paying Living Expenses 3 08/03/2024 Difficulty of Paying Living Expenses Not on file 08/03/2024 Food Insecurity Answer Date Recorded Do you worry your food will run out before you are able to buy more? 1 08/03/2024 Transportation Needs Answer Date Record ed Does lack of transportation keep you from medica l appointments? 1 08/03/2024 Does lack of transportation keep you from work, meetings or getting things that you need? 1 08/03/2024 Housing Stability Answer Date Recorded What is your housing situation today? 1 08/03/2024 Utilities Answer Date Recorded Do you have trouble paying f or utilities (for example, heat, electricity, water, phone)? 1 08/03/2024 Sex and Gender Information Value Date Recorded Sex Assigned at Not on file Legal Sex Male 6:19 AM SCREEN ROOM OPERATOR Gender Identity Not on file Sexual Orientation Not on file Obstetrics History Last Filed Vital Signs Vital Sign Reading Time Taken Comments Blood Pressure 127/72 12/15/2024 9:29 AM CDT Pulse 60 12/15/2024 9:29 AM CDT Temperature 36.5 C (97.7 F) 08/11/2024 4:51 PM SCREEN ROOM OPERATOR Respiratory Rate 16 06/11/2016 10:26 AM SCREEN ROOM OPERATOR Oxygen Saturation 97% 12/15/2024 9:29 AM CDT Inhaled Oxygen Concentration - - Weight 102.1 kg (225 lb) 12/15/2024 9:29 AM CDT Height 175.3 cm (5' 9) 12/15/2024 9:29 AM CDT Body Mass Index 33.23 12/15/2024 9:29 AM CDT Plan of Treatment Upcoming Encounters Date Type Department Care Team (Late st Contact Info) Description 04/21/2025 10:30 AM CDT Office Visit [facility] [address] [place] [address] MD [address] [place] [address] 06/15/2025 10:00 AM SCREEN ROOM OPERATOR Office Visit [facility] [address] [place] [address] Votel, Ryan Quesada MD [address] [place] [address] Health Maintenance Due Date Last Done Comments COVID-19 vaccine series (9 - Moderna risk season) 2024 04/06/2024, 12/10/2023, 05/01/2023, Additional history exists Depression screening for age 12+ 12/24/2024 12/25/2023, 09/19/2022, 06/26/2022, Additional history exists Medicare Wellness for age 65+ 12/25/2024 12/25/2023, 09/19/2022, 01/23/2018, Additional history exists Influenza Vaccine (Season Ended) 2025 04/09/2023, 03/28/2022, 03/25/2020, Additional history exists BMI (ht and wt on same day) for age 18+ 12/15/2025 12/15/2024, 12/10/2024, 08/17/2024, Additional history exists Tetanus booster 09/24/2032 09/24/2022, 10/2011, 09/02/2002 Zoster (shingles) series for age 50+ Completed 06/03/2018, 04/02/2018, 04/24/2012 Tdap Completed 09/24/2022, 04/24/2012 Pneumococcal series for age 50+ Completed 06/14/2023, 12/21/2015, 08/08/2006 RSV vaccine for adults or Completed 06/14/2023 Hepatitis B series for 19+ Aged Out N o longer eligible based on patient's age to complete this topic Procedures Procedure Name Priority Date/Time Associated Diagnosis Comments SCAN-DIAGNOSTIC REPORT 12/14/2024 12:00 AM CDT CBC WITH AUTO DIFFERENTIAL Routine 12/10/2024 9:37 AM CDT HTN (hypertension) BASIC METABOLIC PANEL Routine 12/10/2024 9:37 AM CDT HTN (hypertension) ALT (SGPT) Routine 12/10/2024 9:37 AM CDT HTN (hypertension) LIPID PANEL W REFLEX MEASURED LDL Routine 12/10/2024 9:37 AM CDT Hyperlipidemia LDL goal <100 HEMOGLOBIN A1C MONITORING (POCT) Routine 12/10/2024 9:35 AM CDT Type 2 diabetes mellitus with stage 3 chronic kidney disease, without long-term current use of insulin, unspecified whether stage 3a or 3b CKD (HC) from Last 3 Months Results * SCAN-DIAGNOSTIC REPORT (12/14/2024 12:00 AM CDT) us Scanner OTHER Final Result * (ABNORMAL) LIPID PANEL W REFLEX MEASURED LDL (12/10/2024 9:37 AM CDT) CHOLESTEROL, TOTAL 142 <200 mg/dL [facility] HDL CHOLESTEROL 36(L) > OR = 40 mg/dL [facility] TRIGLYCERIDES 76 <150 mg/dL [facility] LDL-CHOLESTEROL 89 mg/dL (calc) [facility] Comment: Reference range: <100 Desirable range <100 mg/dL for primary prevention; <70 mg/dL for patients with CHD or diabetic patients with > or = 2 CHD risk factors. LDL-C is now calculated using the Jericho-Lees calculation, which is a validated novel method providing better accuracy than the Friedewald equation in the estimation of LDL-C. Jericho SS et al. MAXIMO. 2013;310(19): 4864-6750 (http://education.[employer]/faq/WIE532) CHOL/HDLC RATIO 3.9 <5.0 (calc) [facility] NON HDL CHOLESTEROL 106 <130 mg/dL (calc) [facility] Comment: For patients with diabetes plus 1 major ASCVD risk factor, treating to a non-HDL-C goal of <100 mg/dL (LDL-C of <70 mg/dL) is considered a therapeutic option. Blood BLOOD SPECIMEN / Unknown 12/10/2024 9:37 AM CDT 12/10/2024 9:37 AM CDT us Ryan Barreto MD CHEMISTRY Final Re sult [facility] [address] [place] [address], [place] [phone] [facility] [address] [place] [address] * (ABNORMAL) CBC AND DIFFERENTIAL (12/10/2024 9:37 AM CDT) Pathologist [facility] WHITE BLOOD CELL COUNT 6.2 3.8 - 10.8 Thousand/u L [facility] RED BLOOD CELL COUNT 4.04(L) 4.20 - 5.80 Million/uL [facility] HEMOGLOBIN 13.7 13.2 - 17.1 g/dL [facility] HEMATOCRIT 41.2 38.5 - 50.0 % [facility] MCV 102.0(H) 80.0 - 100.0 fL [facility] MCH 33.9(H) 27.0 - 33.0 pg [facility] MCHC 33.3 32.0 - 36.0 g/dL [facility] Comment: For adults, a slight decrease in the calculated MCHC value (in the range of 30 to 32 g/dL) is most likely not clinically significant; however, it should be interpreted with caution in correlation with other red cell parameters and the patient's clinical condition. RDW 12.9 11.0 - 15.0 % [facility] PLATELET COUNT 148 140 - 400 Thousand/u L [facility] MPV 10.0 7.5 - 12.5 fL [facility] ABSOLUTE NEUTROPHILS 4,693 1,500 - 7,800 cells/uL [facility] ABSOLUTE LYMPHOCYTES 639(L) 850 - 3,900 cells/uL [facility] ABSOLUTE MONOCYTES 738 200 - 950 cells/uL [facility] ABSOLUTE EOSINOPHILS 99 15 - 500 cells/uL [facility] ABSOLUTE BASOPHILS 31 0 - 200 cells/uL [facility] NEUTROPHILS 75.7 % [facility] LYMPHOCYTES 10.3 % [facility] MONOCYTES 11.9 % [facility] EOSINOPHILS 1.6 % [facility] BASOPHILS 0.5 % [facility] Blood BLOOD SPECIMEN / Unknown 12/10/2024 9:37 AM CDT 12/10/2024 9:37 AM CDT Ryan Barreto MD HEMATOLOGY Final Re sult Performing Organization Address City/[facility]/ZIP Co de Phone Number [facility] [employer] [address] [place] [phone], [facility] [address] [place] [address] * ALT (SGPT) (12/10/2024 9:37 AM CDT) Pathologist [facility] ALT 9 9 - 46 U/L [facility] Blood BLOOD SPECIMEN / Unknown 12/10/2024 9:37 AM CDT 12/10/2024 9:37 AM CDT Ryan Barreto MD CHEMISTRY Final Re sult Performing Organization Address [facility]/ZIP Co de Phone Number [facility] [address] [place] [phone], [facility] [address] [place] [address] * (ABNORMAL) BASIC METABOLIC PANEL (12/10/2024 9:37 AM CDT) GLUCOSE 201(H) 65 - 99 mg/dL [facility] Comment: Fasting reference interval For someone without known diabetes, a glucose value >125 mg/dL indicates that they may have diabetes and this should be confirmed with a follow-up test. UREA NITROGEN (BUN) 26(H) 7 - 25 mg/dL [facility] CREATININE 1.34(H) 0.70 - 1.22 mg/dL [facility] EGFR 52(L) > OR = 60 mL/min/1.7 3m2 [facility] BUN/CREATININE RATIO 19 6 - 22 (calc) [facility] SODIUM 142 135 - 146 mmol/L [facility] POTASSIUM 4.3 3.5 - 5.3 mmol/L [facility] CHLORIDE 106 98 - 110 mmol/L [facility] CARBON DIOXIDE 29 20 - 32 mmol/L [facility] ELECTROLYTE BALANCE 7 7 - 17 mmol/L (calc) [facility] CALCIUM 8.9 8.6 - 10.3 mg/dL [facility] Blood BLOOD SPECIMEN / Unknown 12/10/2024 9:37 AM CDT 12/10/2024 9:37 AM CDT Ryan Barreto MD CHEMISTRY Final Re sult [facility] [address] [place] [phone], [facility] [phone] * (ABNORMAL) HEMOGLOBIN A1C MONITORING (POCT) (12/10/2024 9:35 AM CDT) POC HEMOGLOBIN A1C 6.9(H) <6.0 % OF TOTAL HGB [facility] Comment: Any point of care results exhibiting inconsistency with the patient's clinical status should be repeated using a different testing method. Blood BLOOD SPECIMEN / Unknown 12/10/2024 9:35 AM CDT 12/10/2024 9:36 AM CDT Ryan Barreto MD CHEMISTRY Final Re sult [facility] [address] [place] [address], [facility] [address] [place] [address] from Last 3 Months Insurance MEDICARE PART B HB ONLY [employer] CHO[employer] PPO MR Advance Directives Documents on File Type Date Recorded Patient B2B Sales Professional Expl anation Healthcare Directive 07/18/2017 12:15 PM [facility] DIRECT[facility], 03/22/2005 Care Teams Fabric Stretcher Relationship Specialty Start Date End Date Votel, Ryan Quesada MD [address] [place] [address] PCP - General 01/21/06
--- OUTSIDE RECORDS SUMMARY | 2024-12-21 09:28 | XMS_ITS ---
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 Past Treatment and Therapy Plans No past plan information found. Past Radiation Episodes * Electron Beam: Left SkinOverview* First Treatment Date Last Treatment Date Treatment Site Technique Goal Episode Provider 12/06/2023 12/20/2023 Left Skin Electron Beam Curative * Linked Problems Malignant Neoplasm Of Hand S quamous Cell Carcinoma Left Treatment Courses* Course 1eHand 12/06/2023 - 12/20/2023 Treatment Period Fraction Dose Fractions Total Dose Plans Planned [id number] 12/06/2023 - 12/20/2023 700 cGy 5 / 5 3 ,500 cGy Reference Points Delivered [id number] 12/06/2023 - 12/20/2023 3,500 cGy
--- OUTSIDE RECORDS SUMMARY | 2024-12-21 09:28 | XMS_ITS | Encounter Summary ---
Author Organization [facility] Address [address] [place] [address] Care Team Providers Care Poultry Raiser Name Role Phone Elsewhere, Pcp Primary Care Provider Unavailabl e Encounter Details Date Type Department Care Team (Late st Contact Info) Description 02/22/2015 Historical Ophthalmology [facility] Artur Barnhart M.D. 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 - 02/22/2015 12:04 PM [...] well and has not required corneal transplantation. heis having difficulty seeing both at distance and [...] suggesting cornea is the problem. Discussed and at this time we will observe and recheck in a year, sooner if worse. #2 Blurred vision, both eyes Maybe secondary to above. Glasses no help, but suggested low vison/refraction to see if this can beoptimized for his work. Will suggest to Dr. Solano. #3 Diabetic, no retinopathy Observe #4 Mild macular pigment changes, left>right Doubt this is enough to explain blurred vision. #5 Pseudophakia, both eyes Stable DIAGNOSIS #1 Fuchs endothelial dystrophy, both eyes #2 Blurred vision, both eyes #3 Diabetic, no retinopathy #4 Mild macular pigment changes, left>right #5 Pseudophakia, both eyes CDM Reports - EYEGEN Id: [id number] Status: Fnl documented in this encounter Plan of Treatment Not on file documented as of this encounter Visit Diagnoses Not on filedocumented in this encounter Additional Health Concerns Infection Onset Date Last Indicated Resolved Time COVID19 Pending 02/22/2021 02/22/2021 02/22/2021 1 :50 PM CDT COVID19 Pending 05/08/2021 05/08/2021 05/08/2021 8 :39 PM CDT COVID19 Pending 05/22/2021 05/22/2021 05/22/2021 6 :16 PM CDT documented as of this encounter Care Teams Poultry Raiser Relationship Specialty Start Date End Date Elsewhere, Pcp PCP - General Family Medicine 03/01/21 documented as of this encounter
--- OUTSIDE RECORDS SUMMARY | 2024-12-21 09:28 | XMS_ITS | Clinical Summary ---
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 For routine questions regarding patient records, call [phone] during business hours, M-F 8:00 AM - 5:00 PM Central Time. Record requests for emergency care only can be directed to [phone] at any time.[facility] Allergies No known active allergies Medications aspirin [address] tablet Take 1 tablet by mouth daily. 5 Active atenoloL (TENORMIN) 50 mg tablet Take 1 tablet by mouth daily. 1 Active glipiZIDE (GLUCOTROL XL) 10 mg 24 hr tablet Take 1 tablet by mouth daily. 1 Active hydroCHLOROthia zide (HYDRODIURIL) 50 mg tablet Take 1 tablet by mouth daily. 1 Active Lantus Solostar U-100 Insulin 100 unit/mL (3 mL) injection Inject 1 Units under the skin at bedtime. 1 Active liraglutide (Victoza 2-Yunior) 0.6 mg/0.1 mL (18 mg/3 mL) injection Inject 1.2 mg under the skin at bedtime. 0 Active losartan (COZAAR) 25 mg tablet Take 1 tablet by mouth daily. 1 Active omeprazole (PriLOSEC) [address] capsule Take 1 capsule by mouth daily. 1 Active sildenafiL (VIAGRA) 100 mg tablet Take 1 tablet by mouth daily as needed. 1 Active simvastatin (ZOCOR) 10 mg tablet Take 1 tablet by mouth daily. 1 Active vardenafiL (Levitra) 20 mg tablet Take 1 tablet by mouth as directed. 5 Active blood sugar diagnostic (Prodigy No Coding) strips Dispense item covered by pt ins. 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 Reason: High A1C, insulin start. 2 Active cephalexin (KEFLEX) 500 mg capsule 2 Active metroNIDAZOLE (METROCREAM) 0.75 % cream APPLY TO AFFECTED AREA ON FACE 1-2X DAILY 2 Active triamcinolone (KENALOG) 0.1 % cream APPLY TO ITCHY AREAS ON ENTIRE BODY TWICE A DAY FOR 2 WEEKS AT A TIME , TAKE 2 WEEK BREAK THEN REPEAT NEEDED FOR FLARES 2 Active fluorometholone (FML) 0.1 % ophthalmic suspension PLACE ONE DROP INTO EACH EYE EVERY OTHER DAY (SATURDAY, SATURDAY, SATURDAY) 10 mL 3 3 Active mometasone (ELOCON) 0.1 % cream Apply 1 Application topically daily. Apply to the skin of the left hand once or twice daily when radiation therapy begins. 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 Overview (05/22/2021): Added automatically from request for surgery [id number] Aftercare Transplant Cornea 05/22/2021 Overview (05/22/2021): Added automatically from request for surgery [id number] Endothelial Corneal Dystrophy Left Eye 1 Overview (02/20/2021): Added automatically from request for surgery [id number] Family History Medical History Relation Name Comments Lung cancer Father smoker Relation Name Status Comments Father Social History Tobacco Use Types Packs/Day Years Used Date Smoking Tobacco: Never Smokeless Tobacco: Never Tobacco Cessation:Counseling Given: Not Answered Dental Answer Date Recorded Dental: Regular Dentist Unknown 01/20/20 21 Sex and Gender Information Value Date Recorded Sex Assigned at Not on file 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 Gender Identity Not on file Sexual Orientation Not on file Last Filed Vital Signs Vital Sign Reading Time Taken Comments Blood Pressure 148/64 12/20/2023 10:32 AM CDT Pulse 70 12/20/2023 10:32 AM CDT Temperature 36.2 C (97.2 F) 12/20/2023 10:32 AM CDT Respiratory Rate 19 05/23/2021 2:45 PM CDT Oxygen Saturation 95% 05/23/2021 2:45 PM CDT Inhaled Oxygen Concentration - - Weight 103 kg (227 lb 11.8 oz) 12/20/2023 10:32 AM CDT Height 177.1 cm (5' 9.72) 05/10/2021 10:57 AM C DT Body Mass Index 32.94 05/10/2021 10:57 AM CDT Plan of Treatment Health Maintenance Due Date Last Done Comments IPV Vaccines (2 of 3 - Adult catch-up series) 09/12/2006 08/15/2006 COVID-19 Vaccine ( season) 2024 05/01/2023, 04/10/2022, 11/06/2021, Additional history exists Influenza Vaccine (#1) 2024 , 03/28/2022, 04/26/2021, Additional history exists Depression Screening (Annual PHQ-2) 07/22/2024 Fall Risk Screen (Annual) 07/22/2024 Creatinine Level (Kidney Function Test) 12/24/2024 12/25/2023, 12/25/2022, 09/19/2022, Additional history exists Potassium Level 12/24/2024 12/25/2023, 03/0 07/2022, 03/28/2022, Additional history exists Sodium Level 12/24/2024 12/25/2023, 03/0 07/2022, 01/16/2022, Additional history exists DTaP,Tdap,and Td Vaccines (3 - Td or Tdap) 09/24/2032 09/24/2022, 04/24/2012 Pneumococcal vaccine (50+ years) Completed 12/21/2015, 08/08/2006 Zoster Vaccines Completed 06/03/2018, 03/22, 04/24/2012 RSV vaccine - (32-36 weeks) or 60+ years Completed 06/14/2023 HPV Vaccines Aged Out No longer eligi ble based on patient's age to complete this topic Medical Devices Implanted Type 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 Left: Eye [facility] 03/12/2021 [id number] / / Donor Cornea Implanted:Qty : 1 on 05/10/2021 by Artur Barnhart M.D. at [facility] Bone [facility] Right: Eye [facility] 05/18/2021 [id number] OD-C / / Ocular (Eye) Implant Ocular (Eye) Implant Bilatera l: Eye Insurance [employer] Care Teams Coal Trimmer Relationship Specialty Start Date End Date Elsewhere, Pcp PCP - General Family Medicine 03/01/21
[2024-12-21 09:46] VITALS: BP 162/76; PULSE 62; RESP 18; TEMP 36.7; O2SAT 97; BMI 33.2
--- NOTE | 2024-12-21 10:14 | CRLHL7_ITS ---
For Patients: As a result of the Century Cures Act, medical imaging exams and procedure reports are released immediately into your electronic medical record. You may view this report before your referring provider. If you have questions, please contact your health care provider. INDICATION: RUQ pain COMPARISON: CT abdomen/pelvis on July 06, 2018 TECHNIQUE: Ultrasound abdomen complete. Real time sanchez scale imaging and color Doppler analysis was performed of the abdomen. FINDINGS: Liver: The liver is normal in size measuring 16 cm in length. Diffusely increased echogenicity consistent with hepatic steatosis.. Simple appearing subcentimeter cyst in the left hepatic lobe measuring 0.8 centimeters. No suspicious focal liver lesions identified. Gallbladder: No stones or sludge. No wall thickening or pericholecystic fluid. Negative sonographic Garcia sign. Bile ducts: The common bile duct measures 3 mm in diameter. Spleen: The spleen is normal in size measuring 10 cm in length. Pancreas: Not well visualized Right kidney: The right kidney measures 12 cm in length. No hydronephrosis, calculus, or mass. Multiple simple appearing cysts measuring up to 4.5 centimeters in greatest dimension Left kidney: The left kidney measures 10 cm in length. No hydronephrosis, stones, or mass. Multiple simple appearing cysts measuring up to 1.7 Centimeters in greatest dimension Vascular: Normal caliber abdominal aorta where visualized. The IVC appears patent where visualized. The main portal vein is patent with normal flow direction. IMPRESSION: 1. Mild diffusely increased echogenicity of the hepatic parenchyma consistent with hepatic steatosis. No suspicious hepatic lesions. 2. No cholelithiasis or sonographic evidence of acute cholecystitis. 3. Multiple simple appearing renal cysts bilaterally. Dictated by Santana Rey MD @ 12/21/2024 12:27:32 PM (Electronically Signed)
--- NOTE | 2024-12-21 10:41 | ED.BACK ---
HPI - Back Pain/Injury General Date Seen: 12/21/24 Chief Complaint: Back Injury/Pain Stated Complaint: discomfort on right side going back Time Seen by Provider: 12/21/24 09:57 Source: patient Mode of arrival: ambulatory Limitations: no limitations History of Present Illness HPI Narrative: Patient is an 84-year-old male with a history of type 2 diabetes senna for apathy presenting to the emergency department for right flank pain. She states the pain is a point area in his back and pain is worse with movement. When he sits still he has no pain. He mostly notices the pain when he lays down. Denies ever having pain like this before. States he has been getting worse over the past week. Has not taken anything yet for pain. Pain does not radiate anywhere. Denies abdominal pain, lightheadedness, dizziness, weakness, fevers, chills, diarrhea, constipation. Denies saddle anesthesia, urinary retention, urinary incontinence or bowel incontinence. Does not remember any injuries causing the pain. Denies any tenderness to palpation of the back. No history of previous back injuries. Denies ever having pain like this before. No other concerns noted. States he has some shortness of breath but this is chronic farm not any different than his baseline. Also complains of intermittent chest pain states this has also been going on for several years is nothing concerning different today. Is not currently having any pain Related Data Home Medications ?Medication ?Instructions ?Recorded ?Confirmed aspirin 81 mg tablet,delayed 81 mg PO DAILY 02/15/22 12/21/24 release atenolol 50 mg tablet 50 mg PO DAILY 02/15/22 12/21/24 glipizide 10 mg tablet, extended 10 mg PO DAILY 02/15/22 12/21/24 release 24 hr hydrochlorothiazide 50 mg tablet 50 mg PO DAILY 02/15/22 12/21/24 insulin glargine 100 unit/mL (3 54 unit subcut HS 02/15/22 12/21/24 mL) subcutaneous pen (Lantus Solostar U-100 Insulin) liraglutide 0.6 mg/0.1 mL (18 mg/3 1.2 mg subcut DAILY 02/15/22 12/21/24 mL) subcutaneous pen injector (Victoza 2-Yunior) losartan 25 mg tablet 25 mg PO DAILY 02/15/22 12/21/24 omeprazole 20 mg capsule,delayed 20 mg PO DAILY 02/15/22 12/21/24 release sildenafil 100 mg tablet 100 mg PO DAILY PRN 02/15/22 12/21/24 simvastatin 10 mg tablet 10 mg PO HS 02/15/22 12/21/24 Allergies Allergy/AdvReac Type Severity Reaction Status Date / Time cyclobenzaprine Allergy Unknown Verified 12/21/24 09:52 lisinopril Allergy Unknown Verified 12/21/24 09:52 Review of Systems Status of ROS: Reports: 10 or more systems reviewed and unremarkable except as noted in History and below [facility] Medical History History of flexible sigmoidoscopy ?Z98.890 - Other specified postprocedural states (ICD-10) Essential hypertension ?I10 - Essential (primary) hypertension (ICD-10) Thyroid nodule ?E04.1 - Nontoxic single thyroid nodule (ICD-10) Endothelial corneal dystrophy ?H18.519 - Endothelial corneal dystrophy, unspecified eye (ICD-10) Diabetes mellitus ?E11.9 - Type 2 diabetes mellitus without complications (ICD-10) Colon polyps ?K63.5 - Polyp of colon (ICD-10) Kidney cyst, acquired ?N28.1 - Cyst of kidney, acquired (ICD-10) Surgical History Hx of colonoscopy ?Z98.890 - Other specified postprocedural states (ICD-10) H/O cataract removal with insertion of prosthetic lens ?Z98.49 - Cataract extraction status, unspecified eye (ICD-10) ?Z96.1 - Presence of intraocular lens (ICD-10) Social History Smoking Status: Former smoker How many standard drinks containing alcohol do you have on a typical day: 1 or 2 AUDIT-C Alcohol total score: 0 Non-prescribed substance use: denies use service: No Exam Narrative: Exam Narrative: Const: Well-nourished, Well-developed, in mild distress Eyes: PERRL, no conjunctival injection, and symmetrical lids HENT: Atraumatic external nose and ears. Moist mucous membranes. Neck: Symmetric, trachea midline, No thyromegaly. CVS: RRR, No murmurs or gallops. Peripheral pulses 2+ and equal in all extremities RESP: Unlabored respiratory effort. Clear to auscultation bilaterally. GI: Nontender/Nondistended, No rebound or guarding. MSK:Extremities w/o deformity, Normal Active ROM Skin: Warm, Dry. No rashes, bruises or lesions. Neuro: Normal Muscle tone, No focal neurological deficits. Psych: Awake, Alert, & Oriented x3. Appropriate mood and affect. Const: Vital Signs, click to edit/add: Vital Signs - 24 hr 12/21/24 09:46 Temperature 98.1 F Pulse Rate [Pulse Oximeter] 62 Respiratory Rate 18 Blood Pressure [Ri ght Upper Arm] 162/76 H Pulse Oximetry 97 Oxygen Delivery Me thod Room Air Course Vital Signs Vital signs: Initial Vital Signs Temperature 98.1 F 12/21/24 09:46 Temperature Source Temporal Artery Scan 12/21/24 09:46 Pulse Rate 62 12/21/24 09:46 Respiratory Rate 18 12/21/24 09:46 Blood Pressure 162/76 H 12/21/24 09:46 Blood Pressure Mean 104 12/21/24 09:46 Blood Pressure Position Sitting 12/21/24 09:46 Pulse Oximetry 97 12/21/24 09:46 Oxygen Delivery Method Room Air 12/21/24 09:46 Vital Signs Temperature 98.1 F 12/21/24 09:46 Pulse Rate 62 12/21/24 09:46 Respiratory Rate 18 12/21/24 09:46 Blood Pressure 162/76 H 12/21/24 09:46 Pulse Oximetry 97 12/21/24 09:46 Oxygen Delivery Method Room Air 12/21/24 09:46 Temperature 98.1 F 12/21/24 09:46 Pulse Rate 62 12/21/24 09:46 Respiratory Rate 18 12/21/24 09:46 Blood Pressure 162/76 H 12/21/24 09:46 Pulse Oximetry 97 12/21/24 09:46 Oxygen Delivery Method Room Air 12/21/24 09:46 MDM - Back Pain/Injury MDM Narrative Medical decision making narrative: Patient is an 84-year-old male presenting for right flank pain. Considering pain is worse with movement the seems most likely to be related to musculoskeletal strain. Is uncommon for gallbladder, liver or kidney stones to just cause pain with movement. Despite this family is concerned about that and I will do an ultrasound for better evaluation. Do not believe a CT scan is necessary at this time. Will also ultrasound his aorta up to make sure there is no signs of a ruptured AAA. His vital signs are stable. First chest pain it does similar chronic issue blood will do an EKG and troponin for better evaluation. Will also be checking CMP, CBC. Lab work returned showing no acute concerning abnormalities. EKG and troponin shows no concerning findings. Do not believe I need to repeat troponin as symptoms have been going on for quite an extended period of time. Ultrasound returned showing some fatty liver disease but no other concerning findings. Does have some simple appearing cysts. No signs of stones or other concerning findings. This is most likely musculoskeletal in nature and he will be discharged Lab Data Labs: Lab Results 12/21/24 Range/Units 10:38 WBC 5.43 (4.50-11.00) K/uL RBC 3.88 L (4.30-5.90) m/uL Hgb 13.4 L (13.5-17.5) gm/dL Hct 40.4 (37.0-53.0) % MCV 104 H (80-100) fL MCH 35 H (26-34) pg MCHC 33 (32-36) gm/dL RDW Coeff of Vicki 13.4 (11.5-15.5) % Plt Count 123 L (140-440) K/uL Neut % (Auto) 75.7 H (42.0-72.0) % Lymph % (Auto) 10.3 L (20-44) % Pratt % (Auto) 12.3 H (0.0-11.0) % Eos % (Auto) 1.3 (0.0-7.0) % Baso % (Auto) 0.2 (0.0-3.0) % Neut # (Auto) 4.10 (1.7-7.0) K/uL Lymph # (Auto) 0.60 L (0.90-2.90) K/uL Pratt # (Auto) 0.70 (0.00-0.90) K/UL Eos # (Auto) 0.07 (0.00-0.50) K/uL Baso # (Auto) 0.01 (0.00-0.30) K/uL Abs Immat Gran (auto) 0.01 (0.00-0.30) K/uL Imm/Tot Granulo (auto) 0.2 % Sodium 141 (135-149) mmol/L Potassium 4.6 (3.6-5.1) mmol/L Chloride 103 (96-114) mmol/L Carbon Dioxide 31 (20-32) mmol/L Anion Gap 7 (7-15) mEq/L BUN 29 (7-30) mg/dL Creatinine 1.3 (0.5-1.5) mg/dL Estimated Creat Clear 41.54 Estimated GFR 54 ml/min Glucose 158 H (60-115) mg/dL Calcium 9.2 (8.4-10.6) mg/dL Total Bilirubin 1.0 (0.1-1.5) mg/dL AST 21 (12-35) U/L ALT 14 (4-50) U/L Alkaline Phosphatase 50 (40-150) U/L Troponin I < 0.01 (0.01-0.04) ng/mL Total Protein 6.8 (6.0-8.3) g/dL Albumin 4.3 (3.3-5.0) g/dL Imaging Data US - abdomen: Attestation: I have reviewed the pertinent imaging results. Radiologist's impression: 1. Mild diffusely increased echogenicity of the hepatic parenchyma consistent with hepatic steatosis. No suspicious hepatic lesions. 2. No cholelithiasis or sonographic evidence of acute cholecystitis. 3. Multiple simple appearing renal cysts bilaterally. Dictated by Santana Rey MD @ 12/21/2024 12:27:32 PM ECG Data Attestation: I personally reviewed and interpreted this ECG as follows: Prior ECG tracings: not available for review Interpretation: Normal sinus rhythm with a rate of 63 beats per minute, normal intervals, normal axis, no ST or T-wave abnormalities. Discharge Plan Discharge Clinical Impression: Flank pain Patient Disposition: Home, Self-Care Condition: Stable Instructions: Flank Pain (ED) Additional Instructions: I believe your symptoms are most likely musculoskeletal in nature. I do recommend taking Tylenol and ibuprofen for pain. Return to emergency department for new or worsening symptoms. Prescriptions: No Action atenolol 50 mg tablet 50 mg PO DAILY aspirin 81 mg tablet,delayed release (DR/EC) 81 mg PO DAILY hydrochlorothiazide 50 mg tablet 50 mg PO DAILY glipizide 10 mg tablet extended release 24hr 10 mg PO DAILY simvastatin 10 mg tablet 10 mg PO HS sildenafil 100 mg tablet 100 mg PO DAILY PRN losartan 25 mg tablet 25 mg PO DAILY omeprazole 20 mg capsule,delayed release(DR/EC) 20 mg PO DAILY insulin glargine [Lantus Solostar U-100 Insulin] 100 unit/mL (3 mL) insulin pen 54 unit SUBCUT HS liraglutide [Victoza 2-Yunior] 0.6 mg/0.1 mL (18 mg/3 mL) pen injector 1.2 mg SUBCUT DAILY Follow Up/Referrals: Ryan Barreto MD [Primary Care Provider, Family Practice] [facility]: [facility] Info Instructions
[2024-12-21 10:53] LABS: Basophils Absolute Auto 0.01 K/uL (0.00-0.30); Basophils Percent Auto 0.2 % (0.0-3.0); Eosinophils Absolute Auto 0.07 K/uL (0.00-0.50); Eosinophils Percent Auto 1.3 % (0.0-7.0); Hematocrit 40.4 % (37.0-53.0); Hemoglobin* 13.4 gm/dL (13.5-17.5); Immature Granulocytes Abs Auto 0.01 K/uL (0.00-0.30); Immature Granulocytes Pct Auto 0.2 %; Lymphocytes Percent Auto 10.3 % (20-44); Mean Corpuscular HGB Conc 33 gm/dL (32-36); Mean Corpuscular Hemoglobin 35 pg (26-34); Mean Corpuscular Volume 104 fL (80-100); Monocytes Percent Auto 12.3 % (0.0-11.0); Neutrophils Percent Auto 75.7 % (42.0-72.0); Platelet Count* 123 K/uL (140-440); RDW Coefficient of Variation % 13.4 % (11.5-15.5); Red Blood Count 3.88 m/uL (4.30-5.90); White Blood Count* 5.43 K/uL (4.50-11.00)
[2024-12-21 11:00] LABS: Slide Review Reflex No
[2024-12-21 11:05] LABS: Albumin* 4.3 g/dL (3.3-5.0); Chloride* 103 mmol/L (96-114); Potassium* 4.6 mmol/L (3.6-5.1); Sodium* 141 mmol/L (135-149)
[2024-12-21 11:08] LABS: Alanine Aminotransferase* 14 U/L (4-50); Alkaline Phosphatase* 50 U/L (40-150); Anion Gap 7 mEq/L (7-15); Aspartate Amino Transferase* 21 U/L (12-35); Blood Urea Nitrogen* 29 mg/dL (7-30); Calcium* 9.2 mg/dL (8.4-10.6); Carbon Dioxide* 31 mmol/L (20-32); Creatinine* 1.3 mg/dL (0.5-1.5); Est. Creatinine Clearance* 41.54; Estimated Glomerular Filt Rate 54 ml/min; Glucose* 158 mg/dL (60-115); Total Protein* 6.8 g/dL (6.0-8.3)
[2024-12-21 11:26] LABS: Troponin I* < 0.01 ng/mL (0.01-0.04)
== END 2024-12-21 12:58 | disposition home or self-care (01) ==
PROVIDERS: Emergency Provider Student in an Organized Health Care Education/Training Program; PCP Family Medicine
DX: R10.9 Unspecified abdominal pain (principal); R06.02 Shortness of breath; R07.9 Chest pain, unspecified
CPT/HCPCS: 36415; 76700; 80053; 84484; 85025; 93005; 99283; 99284; 99285